=== PATIENT | female | born 1955 | race Caucasian/White ===

== ENCOUNTER → 2016-11-21 | Outpatient (CLI) | payer OTHER ==
[2016-11-21 15:40] LABS: Prothrombin Time 9.8 sec (9.0-12.0)
[2016-11-21 15:43] LABS: Basophils # (A) 0.1 k/uL (0-0.2); Basophils % (A) 2 %; CH 32.9; CHCM 32.8; Eosinophils # (A) 0.1 k/uL (0-0.7); Eosinophils % (A) 2 %; HCT 35.7 % (34.0-46.0); HDW 2.53; HGB 11.7 gm/dL (11.4-16.0); Luc # (Auto) 0.17; Luc % (Auto) 3; Lymphocytes # (A) 2.3 k/uL (1.0-4.8); Lymphocytes % (A) 44 %; MCH 33.1 pg (25.0-35.0); MCHC 32.8 g/dL (31.0-37.0); MCV 100.8 fL (80.0-100.0); Mean Platelet Volume 7.5; Monocytes # (A) 0.3 k/uL (0-1.0); Monocytes % (A) 5 %; Neutrophils # (A) 2.3 k/uL (1.3-7.7); Neutrophils % (A) 44 %; RBC 3.54 m/uL (3.80-5.40); RDW 12.9 % (11.5-15.5); WBC 5.1 k/uL (3.8-10.6); WBC (Perox) 5.38
[2016-11-21 15:50] LABS: ALT 21 U/L (9-52); AST 23 U/L (14-36); Alkaline Phosphatase 48 U/L (38-126); Anion Gap 9 mmol/L; Blood Urea Nitrogen 22 mg/dL (7-17); Calcium 9.7 mg/dL (8.4-10.2); Carbon Dioxide 28 mmol/L (22-30); Chloride 101 mmol/L (98-107); Glucose 115 mg/dL (74-99); Non-African American GFR(MDRD) >60 (>60 ml/min/1.73 sqM); Potassium 4.3 mmol/L (3.5-5.1); Sodium 138 mmol/L (137-145); Total Bilirubin 0.4 mg/dL (0.2-1.3); Total Protein 7.4 g/dL (6.3-8.2)
[2016-11-21 16:06] LABS: Appearance,Urine Clear (Clear); Bilirubin,Urine Negative (Negative); Glucose,Urine (UA) Negative (Negative); Ketones,Urine Negative (Negative); Leukocyte Esterase,Urine Negative (Negative); Nitrite,Urine Negative (Negative); PH, Urine 6.5 (5.0-8.0); Protein,Urine Negative (Negative); Specific Gravity,Urine 1.014 (1.001-1.035); UA Billing (MACRO vs. MICRO) CHEM; Urobilinogen,Urine <2.0 mg/dL (<2.0)
== END ==
LOC: LABWHC1 15:04
PROVIDERS: ATTEND Nurse Practitioner Primary Care
DX: Z01.818 Encounter for other preprocedural examination (principal); M54.5 Low back pain
CPT/HCPCS: 36415; 80053; 81003; 85025; 85610; 85730; 87070; 87086

== ENCOUNTER 2017-03-08 19:38 | Emergency (ER) | payer OTHER ==
[2017-03-08] MEDS ORDERED: ONDANSETRON 4 MG/2 ML VIAL IVP STA (20:16)
[2017-03-08] MEDS ORDERED: HYDROmorphone 1 MG/ML 1 ML SYRINGE IVP STA ×2 (20:16→21:59)
[2017-03-08] MEDS ORDERED: SODIUM CHLORIDE 0.9% 1,000 ML IV STA (20:16)
--- NOTE | 2017-03-08 20:21 | ED ---
Abdominal Pain HPI - General Chief Complaint: Abdominal Pain Stated Complaint: sore throat/vomiting/abdominal pain Time Seen by Provider: 03/08/17 19:58 Source: patient, RN notes reviewed Mode of arrival: ambulatory Limitations: no limitations - History of Present Illness Initial Comments: 61-year-old female presents to the emergency Department chief complaint of abdominal pain. Patient states that she developed this abdominal pain that radiates to her back about 2-3 days ago and today she started vomiting. Patient states pain is moderate. Patient states is constant and worse touch. Patient states she hasn't had any cough cold runny nose with this. Patient states that she hasn't had any fever chills. Patient states that she has had a hysterectomy in the past but doesn't know if she had any other surgeries for removal organs. Patient states she does suffer from chronic pain. Patient states she does not use alcohol. Patient states that she is not currently having any other symptoms. Patient denies any recent fever, chills, shortness of breath, chest pain, back pain, numbness or tingling, dysuria or hematuria, constipation or diarrhea, headaches or visual changes, or any other current symptoms. - Related Data Home Medications Medication Instructions Recorded Confirmed Cyclobenzaprine [Flexeril] 10 mg PO DAILY PRN 01/22/15 03/08/17 Zolpidem Tartrate [Ambien Cr] 12.5 mg PO HS PRN 01/22/15 03/08/17 lamoTRIgine [LaMICtal] 100 mg PO DAILY 01/22/15 03/08/17 Divalproex [Depakote] 250 mg PO DAILY 09/03/16 03/08/17 Estrogens, Conjugated [Premarin] 0.3 mg PO DAILY 09/03/16 03/08/17 FLUoxetine HCL [PROzac] 80 mg PO DAILY 09/03/16 03/08/17 Fenofibrate [Lofibra] 54 mg PO DAILY 09/03/16 03/08/17 Gemfibrozil [Lopid] 600 mg PO DAILY 09/03/16 03/08/17 HYDROcodone/APAP 7.5-325MG [[place] 1 tab PO DAILY PRN 09/03/16 03/08/17 7.5-325] Levothyroxine Sodium [Synthroid] 75 mcg PO DAILY 09/03/16 03/08/17 Lisinopril-Hctz 10-12.5 mg 1 tab PO DAILY 09/03/16 03/08/17 [Zestoretic 10-12.5] Morphine Sulfate ER [Ms Contin 15 mg PO Q12HR 09/03/16 03/08/17 15Mg] Morphine Sulfate ER [Ms Contin 30 mg PO Q12HR 09/03/16 03/08/17 30Mg] Loratadine 10 mg PO DAILY 03/08/17 03/08/17 Previous Rx's Medication Instructions Recorded Ciprofloxacin HCl [Cipro] 500 mg PO Q12HR #20 day 09/03/16 Allergies Allergy/AdvReac Type Severity Reaction Status Date / Time Iodinated Contrast Media - Allergy Rash/Hives/ Verified 03/08/17 20:22 Oral and Swelling Review of Systems ROS Statement: Those systems with pertinent positive or pertinent negative responses have been documented in the HPI. ROS Other: All systems not noted in ROS Statement are negative. Past Medical History Past Medical History: Asthma, Fibromyalgia, Hyperlipidemia, Osteoarthritis (OA) , Thyroid Disorder History of Any Multi-Drug Resistant Organisms: None Reported Past Surgical History: Cholecystectomy Past Psychological History: Anxiety, Depression Smoking Status: Current some day smoker Past Alcohol Use History: None Reported Past Drug Use History: None Reported General Exam - General Exam Comments Initial Comments: General: The patient is awake and alert, in no distress, and does not appear acutely ill. Eye: Pupils are equal, round and reactive to light, extra-ocular movements are intact; there is normal conjunctiva bilaterally. No signs of icterus. Ears, nose, mouth and throat: There are moist mucous membranes and no oral lesions. Neck: The neck is supple, there is no tenderness. Cardiovascular: There is a regular rate and rhythm. No murmur, rub or gallop is appreciated. Respiratory: Lungs are clear to auscultation, respirations are non-labored, breath sounds are equal. No wheezes, stridor, rales, or rhonchi. Gastrointestinal: Soft, non-distended, right upper quadrant tenderness of the abdomen without masses or organomegaly noted. There is no rebound or guarding present. No CVA tenderness. Bowel sounds are unremarkable. Back: There is no tenderness to palpation in the midline. There is no obvious deformity. No rashes noted. Musculoskeletal: Normal ROM, no tenderness, There is no pedal edema. There is no calf tenderness or swelling. Sensation intact. Pulses equal bilaterally 2+. Neurological: CN II-XII intact, There are no obvious motor or sensory deficits. Coordination appears grossly intact. Speech is normal. Skin: Skin is warm and dry and no rashes or lesions are noted. Psychiatric: Cooperative, appropriate mood & affect, normal judgment. Limitations: no limitations Course Vital Signs 03/08/17 03/08/17 19:44 21:17 Temperature 97.4 F L Pulse Rate 59 L 65 Respiratory 18 16 Rate Blood Pressure 164/72 152/70 O2 Sat by Pulse 98 97 Oximetry Medical Decision Making - Medical Decision Making 61-year-old female presents emergency department chief complaint of abdominal pain nausea vomiting. This time patient is reevaluated. At this time patient' s abdominal tenderness has resolved. Patient's CAT scan laboratory reviewed and negative. This and we discussed continued outpatient follow-up she is given GI follow-up. We discussed return parameters all questions. She stated that she understood and she is planned. She'll be discharged. - Lab Data Result diagrams: 03/08/17 20:02 03/08/17 20:02 Lab Results 03/08/17 03/08/17 03/08/17 Range/Units 20:02 20:02 20:02 WBC 7.6 (3.8-10.6) k/uL RBC 3.99 (3.80-5.40) m/uL Hgb 13.2 (11.4-16.0) gm/dL Hct 39.2 (34.0-46.0) % MCV 98.2 (80.0-100.0) fL MCH 33.2 (25.0-35.0) pg MCHC 33.8 (31.0-37.0) g/dL RDW 13.6 (11.5-15.5) % Plt Count 373 (150-450) k/uL Neutrophils % 53 % Lymphocytes % 39 % Monocytes % 4 % Eosinophils % 1 % Basophils % 1 % Neutrophils # 4.0 (1.3-7.7) k/uL Lymphocytes # 3.0 (1.0-4.8) k/uL Monocytes # 0.3 (0-1.0) k/uL Eosinophils # 0.1 (0-0.7) k/uL Basophils # 0.1 (0-0.2) k/uL Sodium 144 (137-145) mmol/L Potassium 4.1 (3.5-5.1) mmol/L Chloride 106 (98-107) mmol/L Carbon Dioxide 26 (22-30) mmol/L Anion Gap 12 mmol/L BUN 14 (7-17) mg/dL Creatinine 0.86 (0.52-1.04) mg/dL Est GFR (MDRD) Af Amer >60 (>60 ml/min/1.73 sqM) Est GFR (MDRD) Non-Af >60 (>60 ml/min/1.73 sqM) Glucose 89 (74-99) mg/dL Calcium 9.8 (8.4-10.2) mg/dL Total Bilirubin 0.6 (0.2-1.3) mg/dL AST 25 (14-36) U/L ALT 25 (9-52) U/L Alkaline Phosphatase 59 (38-126) U/L Total Protein 7.6 (6.3-8.2) g/dL Albumin 4.4 (3.5-5.0) g/dL Amylase 50 (30-110) U/L Lipase 82 (23-300) U/L Urine Color Yellow Urine Appearance Cloudy H (Clear) Urine pH 7.5 (5.0-8.0) Ur Specific [place] 1.009 (1.001-1.035) Urine Protein Negative (Negative) Urine Glucose (UA) Negative (Negative) Urine Ketones Negative (Negative) Urine Blood Small H (Negative) Urine Nitrite Negative (Negative) Urine Bilirubin Negative (Negative) Urine Urobilinogen <2.0 (<2.0) mg/dL Ur Leukocyte Esterase Negative (Negative) Urine RBC 8 H (0-5) /hpf Urine WBC 2 (0-5) /hpf Ur Squamous Epith Cells 4 (0-4) /hpf Urine Bacteria Moderate H (None) /hpf Urine Mucus Rare H (None) /hpf - EKG Data -: EKG Interpreted by Me 03/08/17 22:16 Sinus bradycardia, inferior 59, para 1:30, respirations 22, no ST elevation or depression, compared to EKG from 09/03/2016 Disposition Clinical Impression: Abdominal pain Disposition: TRANSFER TO PSYCH HOSP/UNIT Condition: Stable Instructions: Abdominal Pain (ED) Additional Instructions: Please use medication as discussed. Please follow up with family doctor if symptoms have not improved over the next two days. Please return to the emergency room if your symptoms increase or worsen or for any other concerns. Referrals: Federico Gregg MD [Primary Care Provider] - 1-2 days Time of Disposition: 22:18
[2017-03-08 20:50] LABS: Basophils # (A) 0.1 k/uL (0-0.2); Basophils % (A) 1 %; CH 33.6; CHCM 34.3; Eosinophils # (A) 0.1 k/uL (0-0.7); Eosinophils % (A) 1 %; HCT 39.2 % (34.0-46.0); HDW 2.46; HGB 13.2 gm/dL (11.4-16.0); Luc # (Auto) 0.18; Luc % (Auto) 2; Lymphocytes % (A) 39 %; MCH 33.2 pg (25.0-35.0); MCHC 33.8 g/dL (31.0-37.0); MCV 98.2 fL (80.0-100.0); Mean Platelet Volume 6.7; Monocytes # (A) 0.3 k/uL (0-1.0); Monocytes % (A) 4 %; Neutrophils % (A) 53 %; RBC 3.99 m/uL (3.80-5.40); RDW 13.6 % (11.5-15.5); WBC 7.6 k/uL (3.8-10.6); WBC (Perox) 7.93
[2017-03-08 20:57] LABS: Appearance,Urine Cloudy (Clear); Bacteria,Urine Moderate /hpf; Bilirubin,Urine Negative (Negative); Glucose,Urine (UA) Negative (Negative); Ketones,Urine Negative (Negative); Leukocyte Esterase,Urine Negative (Negative); Mucus,Urine Rare /hpf; Nitrite,Urine Negative (Negative); PH, Urine 7.5 (5.0-8.0); Particle Count 9196; Protein,Urine Negative (Negative); RBC,Urine 8 /hpf (0-5); Specific Gravity,Urine 1.009 (1.001-1.035); Squamous Epithelial Cell,Urine 4 /hpf (0-4); UA Billing (MACRO vs. MICRO) MICRO; Urobilinogen,Urine <2.0 mg/dL (<2.0); WBC,Urine 2 /hpf (0-5)
[2017-03-08 21:03] LABS: ALT 25 U/L (9-52); AST 25 U/L (14-36); Alkaline Phosphatase 59 U/L (38-126); Amylase 50 U/L (30-110); Anion Gap 12 mmol/L; Blood Urea Nitrogen 14 mg/dL (7-17); Calcium 9.8 mg/dL (8.4-10.2); Carbon Dioxide 26 mmol/L (22-30); Chloride 106 mmol/L (98-107); Glucose 89 mg/dL (74-99); Non-African American GFR(MDRD) >60 (>60 ml/min/1.73 sqM); Potassium 4.1 mmol/L (3.5-5.1); Sodium 144 mmol/L (137-145); Total Bilirubin 0.6 mg/dL (0.2-1.3); Total Protein 7.6 g/dL (6.3-8.2)
--- NOTE | 2017-03-08 21:11 | XR ---
History nausea and vomiting. Comparison 10/28/2010. TECHNIQUE: 2 views. FINDINGS: Bowel gas pattern is normal. There is no sign of intestinal obstruction or pneumoperitoneum. There is lower lumbar spine fusion surgery. There are clips from cholecystectomy. Fecal pattern is normal. Kenisha ng bases are clear. There are no pathologic calcifications over the kidneys. CONCLUSION: Nonacute abdomen. No change.
--- NOTE | 2017-03-08 21:55 | CT ---
EXAMINATION TYPE: CT abdomen pelvis wo con DATE OF EXAM: 03/08/2017 COMPARISON: 09/03/2016 HISTORY: Abdominal cramping and vomiting. CT DLP: 215.1 mGycm Automated exposure control for dose reduction was used. TECHNIQUE: Helical acquisition of images was performed from the lung bases through the pelvis. FINDINGS: Lung bases are clear. There is no pleural effusion. There are clips from cholecystectomy. Liver spleen pancreas appear normal. Bile ducts are not dilated . Abdominal aorta is atheromatous. There is no adrenal mass. Kidneys have normal size and contour. Th ere is no hydronephrosis. Ureters are not dilated. I see no intestinal wall thickening. There are no dilated loops. Bladder distends smoothly. There is no sign of a pelvic mass. Appendix is not seen. There is no sign of appendicitis. There is anterior f usion surgery in the lower lumbar spine. I see no bony destructive process. IMPRESSION: NO SIGN OF ACUTE ABDOMEN AND PELVIS. I DO NOT SEE A CAUSE FOR THE SYMPTOMS. NO ADVERSE CHANGE COMPARE D TO OLD EXAM. ATHEROSCLEROTIC VASCULAR DISEASE.
[2017-03-08 22:27] VITALS: BP 142/60; PULSE 66; RESP 16; TEMP 97.6
== END 2017-03-08 22:26 | disposition home or self-care (01) ==
LOC: EC 19:38
DX: R10.11 Right upper quadrant pain (principal); R11.10 Vomiting, unspecified; J02.9 Acute pharyngitis, unspecified; E78.5 Hyperlipidemia, unspecified; M19.90 Unspecified osteoarthritis, unspecified site; E07.9 Disorder of thyroid, unspecified; J45.909 Unspecified asthma, uncomplicated; F32.9 Major depressive disorder, single episode, unspecified; F41.9 Anxiety disorder, unspecified; F17.200 Nicotine dependence, unspecified, uncomplicated; Z79.891 Long term (current) use of opiate analgesic; Z79.899 Other long term (current) drug therapy; Z91.041 Radiographic dye allergy status; Z90.49 Acquired absence of other specified parts of digestive tract
CPT/HCPCS: 99284; 96374; 96375; 96376; 96361 ×2; 36415; 93005; 80053; 82150; 83690; 85025; 81001; 87040; 87086; 74020; 74176; J2405; J1170

== ENCOUNTER → 2017-04-10 | Outpatient (CLI) | payer OTHER ==
--- NOTE | 2017-04-10 16:59 | US ---
EXAMINATION TYPE: US kidneys/renal and bladder DATE OF EXAM: 04/10/2017 COMPARISON: CT CLINICAL HISTORY: R31.9 Hematuria. Pt states microscopic hematuria EXAM MEASUREMENTS: Right Kidney: 9.9 x 4.4 x 4.2 cm Left Kidney: 11.3 x 5.4 x 4.1 cm Right Kidney: Appeared wnl Left Kidney: Appeared wnl Bladder: wnl Bilateral Jets seen: Only left jet seen The kidneys appear morphologically normal. The bladder is unremarkable. The right ureteral jet was vi sualized in the left was not. IMPRESSION: NORMAL RENAL ULTRASOUND.
== END | disposition home or self-care (01) ==
LOC: RADUSWWP 16:09
PROVIDERS: ATTEND Internal Medicine
DX: R31.9 Hematuria, unspecified (principal)
CPT/HCPCS: 76770

== ENCOUNTER → 2017-06-06 | Outpatient (CLI) | payer OTHER ==
[2017-06-06 11:14] LABS: ALT 23 U/L (9-52); AST 16 U/L (14-36); Alkaline Phosphatase 57 U/L (38-126); Anion Gap 9 mmol/L; Blood Urea Nitrogen 16 mg/dL (7-17); Carbon Dioxide 23 mmol/L (22-30); Chloride 107 mmol/L (98-107); Glucose 77 mg/dL (74-99); Non-African American GFR(MDRD) >60 (>60 ml/min/1.73 sqM); Potassium 4.2 mmol/L (3.5-5.1); Sodium 139 mmol/L (137-145); Total Bilirubin 0.2 mg/dL (0.2-1.3); Total Protein 6.2 g/dL (6.3-8.2)
[2017-06-06 11:33] LABS: Basophils # (A) 0.1 k/uL (0-0.2); Basophils % (A) 1 %; CH 32.9; CHCM 33.1; Eosinophils # (A) 0.1 k/uL (0-0.7); Eosinophils % (A) 2 %; HCT 33.4 % (34.0-46.0); HDW 2.63; HGB 10.8 gm/dL (11.4-16.0); Luc # (Auto) 0.12; Luc % (Auto) 2; Lymphocytes # (A) 2.7 k/uL (1.0-4.8); Lymphocytes % (A) 45 %; MCH 32.2 pg (25.0-35.0); MCHC 32.2 g/dL (31.0-37.0); Mean Platelet Volume 7.1; Monocytes # (A) 0.4 k/uL (0-1.0); Monocytes % (A) 7 %; Neutrophils # (A) 2.6 k/uL (1.3-7.7); Neutrophils % (A) 44 %; RBC 3.34 m/uL (3.80-5.40); WBC 5.9 k/uL (3.8-10.6); WBC (Perox) 6.08
== END | disposition home or self-care (01) ==
LOC: LABWHC1 10:30
PROVIDERS: ATTEND Nurse Practitioner Primary Care
DX: I10 Essential (primary) hypertension (principal)
CPT/HCPCS: 36415; 80053; 85025

== ENCOUNTER → 2017-12-30 | Outpatient (CLI) | payer OTHER ==
--- NOTE | 2017-12-30 14:10 | MR ---
MRI CERVICAL SPINE: CLINICAL HISTORY: Cervicalgia per order. Headache with neck pain for a long-time causing pain or weak ness into both arms per patient. TECHNIQUE: Multiplanar, multisequence imaging of the cervical spine is performed without IV contrast. COMPARISON: MRI cervical spine October 21, 2014. FINDINGS: Sagittal images of the cervical spine show the craniocervical junction to remain within nor mal limits. The cervical and upper thoracic spinal cord is stable and normal in course, caliber, and signal. There is generalized AP diameter narrowing redemonstrated unchanged from prior Vertebral al ignment is stable and straightened. The vertebral body heights are normal. There is stable mild mult ilevel disc space narrowing. No large posterior disc herniations are seen on sagittal images. The bon e marrow signal intensity is overall slightly heterogeneous with mild to moderate multilevel spurring mid cervical levels redemonstrated. Axial images show the C2-C3 level to remain within normal limits. Axial images at C3-C4 level show broad-based posterior disc protrusion mildly effacing anterior theca l sac, bilateral neural foramina are patent. No significant change from prior. Axial images at C4-C5 level show broad-based posterior disc protrusion effacing anterior thecal sac a nd causing mild bilateral neural foraminal narrowing. No significant change from prior. Axial images at C5-C6 level show left paracentral broad-based disc protrusion effacing anterolateral thecal sac and causing mild to moderate left-sided neural foraminal narrowing. Right-sided neural for amen is patent. No significant change from prior study is seen. Axial images at C6-C7 level show new right foraminal spur disc complex effacing anterolateral thecal sac and causing mild to moderate left-sided neural foraminal narrowing on axial image 17 and sagittal image 4, right-sided neural foramen is patent. No significant change from prior. Axial images at C7-T1 level are felt to remain within normal limits. Thyroid gland is not well-visualized similar to prior. IMPRESSION: Straightening of cervical spine with multilevel degenerative changes redemonstrated as de tailed above. No significant change or progression from prior MRI noted.
== END | disposition home or self-care (01) ==
LOC: RADMRIMAIN 12:33
PROVIDERS: ATTEND Psychiatry & Neurology Neurology
DX: M48.02 Spinal stenosis, cervical region (principal); M99.71 Connective tissue and disc stenosis of intervertebral foramina of cervical region; M50.21 Other cervical disc displacement, high cervical region; M47.812 Spondylosis without myelopathy or radiculopathy, cervical region
CPT/HCPCS: 72141

== ENCOUNTER → 2018-02-07 | Outpatient (CLI) | payer OTHER ==
--- NOTE | 2018-02-11 14:56 | MM ---
Reason for exam: screening (asymptomatic). Last mammogram was performed 2 years and 5 months ago. History: Patient is postmenopausal. Taking estrogen for 24 years beginning at age 34. Physical Findings: A clinical breast exam by your physician is recommended on an annual basis and results should be correlated with mammographic findings. MG Screening Mammo w CAD Bilateral CC and MLO view(s) were taken. Prior study comparison: September 07, 2015, right breast MG 3d work up w/cad RT. August 25, 2015, bilateral MG screening mammo w CAD. The breast tissue is heterogeneously dense. This may lower the sensitivity of mammography. Focal asymmetry upper inner right breast 6.4cm from nipple. ASSESSMENT: Incomplete: need additional imaging evaluation, BI-RAD 0 RECOMMENDATION: Special view mammogram of the right breast. If lesion persists on supplemental views, image directed ultrasound is recommended. [facility] will attempt to contact patient to return for supplemental views and ultrasound if indicated.
== END | disposition home or self-care (01) ==
LOC: RADMAMWWP 13:21
PROVIDERS: ATTEND Internal Medicine
DX: Z12.31 Encounter for screening mammogram for malignant neoplasm of breast (principal)
CPT/HCPCS: 77067

== ENCOUNTER → 2018-02-27 | Outpatient (CLI) | payer OTHER ==
--- NOTE | 2018-02-27 14:20 | MM ---
Reason for exam: additional evaluation requested from abnormal screening. Last mammogram was performed 1 month ago. History: Patient is postmenopausal. Taking estrogen for 24 years beginning at age 34. Physical Findings: Nurse did not find any significant physical abnormalities on exam. MG Work Up Mamm w CAD RT Spot compression CC, spot compression MLO, and LM view(s) were taken of the right breast. Prior study comparison: February 07, 2018, bilateral MG screening mammo w CAD. September 07, 2015, right breast MG 3d work up w/cad RT. No distinct lesion persists on additional views provided. These results were verbally communicated with the patient and result sheet given to the patient on 02/27/18. ASSESSMENT: Negative, BI-RAD 1 RECOMMENDATION: Return to routine screening mammogram schedule for both breasts.
== END | disposition home or self-care (01) ==
LOC: RADMAMWWP 12:50
PROVIDERS: ATTEND Internal Medicine
DX: R92.8 Other abnormal and inconclusive findings on diagnostic imaging of breast (principal)
CPT/HCPCS: 77065

== ENCOUNTER → 2018-03-05 | Outpatient (CLI) | payer OTHER ==
[2018-03-05 14:46] LABS: Basophils # (A) 0.1 k/uL (0-0.2); Basophils % (A) 1 %; Eosinophils # (A) 0.1 k/uL (0-0.7); Eosinophils % (A) 2 %; HCT 40.3 % (34.0-46.0); HGB 13.6 gm/dL (11.4-16.0); Lymphocytes # (A) 2.7 k/uL (1.0-4.8); Lymphocytes % (A) 44 %; MCH 31.9 pg (25.0-35.0); MCHC 33.8 g/dL (31.0-37.0); MCV 94.3 fL (80.0-100.0); Mean Platelet Volume 6.5; Monocytes # (A) 0.3 k/uL (0-1.0); Monocytes % (A) 5 %; Neutrophils # (A) 2.9 k/uL (1.3-7.7); Neutrophils % (A) 47 %; Platelet Count 407 k/uL (150-450); RBC 4.27 m/uL (3.80-5.40); RDW 13.4 % (11.5-15.5); WBC 6.2 k/uL (3.8-10.6)
[2018-03-05 15:17] LABS: T4, Free (Free Thyroxine) 1.39 ng/dL (0.78-2.19)
== END | disposition home or self-care (01) ==
LOC: LABWHC1 13:52
PROVIDERS: ATTEND Nurse Practitioner Primary Care
DX: E03.9 Hypothyroidism, unspecified (principal); E78.5 Hyperlipidemia, unspecified
CPT/HCPCS: 36415; 80061; 84439; 84443; 84481; 85025

== ENCOUNTER → 2018-07-15 | Outpatient (CLI) | payer OTHER ==
[2018-07-15 16:22] LABS: ALT 16 U/L (8-44); AST 26 U/L (13-35); Albumin/Globulin Ratio 2.09 (1.20-2.10); Alkaline Phosphatase 92 U/L (41-126); Bilirubin, Conjugated <0.20 mg/dL (0.20-0.40); Globulin 2.2 g/dL (2.1-3.7); Total Bilirubin 0.2 mg/dL (0.3-1.2); Total Protein 6.8 g/dL (6.2-8.2)
== END | disposition home or self-care (01) ==
LOC: LABWHC1 08:25
DX: E03.9 Hypothyroidism, unspecified (principal); Z51.81 Encounter for therapeutic drug level monitoring
CPT/HCPCS: 36415; 80076; 84439; 84443; 84481

== ENCOUNTER → 2018-08-26 | Outpatient (CLI) | payer OTHER ==
[2018-08-26 11:37] LABS: Albumin 4.6 g/dL (3.80-4.90); Albumin/Globulin Ratio 2.09 (1.20-2.10); Anion Gap 7.4 mmol/L (4.00-12.00); Calcium 9.6 mg/dL (8.7-10.3); Carbon Dioxide 25.6 mmol/L (21.6-31.8); Globulin 2.2 g/dL (2.1-3.7); Potassium 4.5 mmol/L (3.5-5.5); Total Bilirubin 0.3 mg/dL (0.3-1.2); Total Protein 6.8 g/dL (6.2-8.2)
== END ==
LOC: LABWHC1 06:33
DX: E78.5 Hyperlipidemia, unspecified (principal); I10 Essential (primary) hypertension
CPT/HCPCS: 36415; 80053; 80061; 84443

== ENCOUNTER → 2019-03-25 | Outpatient (CLI) | payer OTHER ==
--- NOTE | 2019-03-27 13:30 | MM ---
Reason for exam: screening (asymptomatic). Last mammogram was performed 1 year and 1 month ago. History: Patient is postmenopausal. Taking estrogen for 24 years beginning at age 34. Physical Findings: A clinical breast exam by your physician is recommended on an annual basis and results should be correlated with mammographic findings. MG Screening Mammo w CAD Bilateral CC and MLO view(s) were taken. Prior study comparison: February 27, 2018, right breast MG work up mamm w CAD RT. February 07, 2018, bilateral MG screening mammo w CAD. There are scattered fibroglandular densities. No significant changes when compared with prior studies. ASSESSMENT: Benign, BI-RAD 2 RECOMMENDATION: Routine screening mammogram of both breasts in 1 year.
== END | disposition home or self-care (01) ==
LOC: RADMAMWWP 14:42
PROVIDERS: ATTEND Family Medicine
DX: Z12.31 Encounter for screening mammogram for malignant neoplasm of breast (principal)
CPT/HCPCS: 77067

== ENCOUNTER 2019-06-10 10:59 | Day surgery (SDC) | payer OTHER ==
[2019-06-08 15:37] VITALS: BMI 29.5
[~2019-06-10 10:59] MED LIST: ACETAMINOPHEN TAB 500 MG TAB PO ONE; DEXAMETHASONE SOD PHOSPHATE 10 MG/ML 1 ML VIAL IV ONE; GABAPENTIN 300 MG CAP PO ONE; HYDROmorphone 0.5 MG/0.5 ML SYRINGE IVP PRN; KETOROLAC 30 MG/ML 1 ML VIAL IVP SCH; LACTATED RINGERS 1,000 ML IV SCH; LIDOCAINE 1% 20 ML VIAL (10MG/ML) FOR IV START INTRADERMA PRN; MIDAZOLAM 2 MG/2 ML VIAL IV PRN; ONDANSETRON 4 MG/2 ML VIAL IVP ONE; Pre Op ABX Message 1 EACH MISC MISCELLANE ONE
[2019-06-10] MEDS ORDERED: MIDAZOLAM 2 MG/2 ML VIAL ONE (13:15)
[2019-06-10] MEDS ORDERED: GLYCOPYRROLATE 0.2 MG/ML 2 ML VIAL ONE ×2 (13:15)
[2019-06-10] MEDS ORDERED: LIDOCAINE 2%-EPI 1:100,000 20 ML VIAL ONE (13:15)
[2019-06-10] MEDS ORDERED: ePHEDrine SULFATE/0.9% NACL/PF 50 MG/5 ML SYRINGE IV ONE (13:15)
[2019-06-10] MEDS ORDERED: NEOSTIGMINE 1 MG/ML 10 ML VIAL ONE (13:15)
[2019-06-10] MEDS ORDERED: PROPOFOL 10 MG/ML 20 ML VIAL IV ONE (13:15)
[2019-06-10] MEDS ORDERED: LIDOCAINE 1% INJ 10MG/ML (20 ML MDV) ONE (13:15)
[2019-06-10] MEDS ORDERED: PHENYLEPHRINE-0.9% NACL SYG 1 MG/10 ML SYRINGE ONE (13:15)
[2019-06-10] MEDS ORDERED: ROPIVACAINE 5 MG/ML 30 ML VIAL ONE (13:15)
[2019-06-10] MEDS ORDERED: fentaNYL (PF) 50 MCG/ML 2 ML AMP ONE (13:15)
[2019-06-10] MEDS ORDERED: ROCURONIUM BROMIDE 10 MG/ML 10 ML VIAL IV ONE (13:15)
[2019-06-10] MEDS ORDERED: SODIUM CHLORIDE 0.9% 100 ML with ceFAZolin 2,000 MG IV ONE ×2 (13:19)
[2019-06-10] MEDS ORDERED: LACTATED RINGERS 1,000 ML IV ONE ×2 (14:08)
[2019-06-10 14:54] VITALS: TEMP 96.8
[2019-06-10 15:02] VITALS: RESP 16
[2019-06-10] MEDS ORDERED: HYDROcodone/APAP 7.5-325MG 1 EACH TAB PO ONE (15:36)
[2019-06-10 15:48] VITALS: BP 129/71; PULSE 70
--- NOTE | 2019-06-10 16:18 | P.ANPRN ---
Procedure Note - Anesthesia - Nerve Block Performed Left Interscalene Single Time Out Performed: Yes Date of Procedure: 06/10/19 Procedure Start Time: 12:17 Location of Patient Procedure: PreOp Indication: Acute Post-Operative Pain, Dx/Pain Location, Requested by Surgeon Sedation Type: Sedate with meaningful contact maintained Preparation: Sterile Prep Position: Supine Catheter: None Needle Types: [place]unk Needle Gauge: 21 Ultrasound used to visualize needle placement: Yes Ultrasound used to observe medication spread: Yes Injectate: 0.5% Ropivacaine (see comment for volume) (20ml) Blood Aspirated: No Pain Paresthesia on Injection Noted: No Resistance on Injection: Normal Image Stored and Saved: Yes Events: Uneventful and Well Tolerated
--- NOTE | 2019-06-10 16:26 | OP ---
OPERATIVE REPORT DATE OF PROCEDURE: 06/10/2019. SURGEON: Perry Rodriguez MD CLIENT INSIGHTS CONSULTANT: Clarence Toledo PA-C PREOPERATIVE DIAGNOSES: 1. Left shoulder full-thickness rotator cuff tear. 2. Left shoulder superior labral tear. 3. Left shoulder subacromial impingement. POSTOPERATIVE DIAGNOSES: 1. Left shoulder full-thickness tear of the supraspinatus, 1 x 1 cm tear. 2. Left shoulder type 2 degenerative superior labral tear. 3. Left shoulder fraying of the intra-articular portion of the long head of the biceps tendon. 4. Left shoulder type 2 anterolateral acromial spur. PROCEDURES PERFORMED: 1. Left shoulder arthroscopic rotator cuff repair 1 x 1 cm tear of the supraspinatus. 2. Left shoulder arthroscopic acromioplasty. 3. Left shoulder arthroscopic biceps tenotomy. 4. Left shoulder arthroscopic anterior, superior and posterior labral debridement. ANESTHESIA: General endotracheal. ESTIMATED BLOOD LOSS: Minimal. TOURNIQUET: None. DRAINS: None. COMPLICATIONS: None apparent. DISPOSITION: Post-Anesthesia Care Unit. EXAMINATION UNDER ANESTHESIA OF THE LEFT SHOULDER: Elevation to 160 degrees, external rotation at the side 45 degrees, external rotation at 90 degrees 90 degrees, internal rotation at 90 degrees, 60 degrees, sulcus less than 1 cm, anterior translation glenoid face, posterior translation glenoid face. ARTHROSCOPIC FINDINGS OF THE LEFT SHOULDER: 1. Superior labrum, type 2 degenerative superior labral tear, tearing both anterior and posterior of the biceps anchor. The biceps anchor was not intact. There was also significant fraying of the intra-articular portion of the long head of the biceps tendon. 2. Anteroinferior labrum with normal glenoid labral attachment. 3. Tearing of the posterior labrum from the 10 o'clock position to the 12 o'clock position on the glenoid face. 4. Humeral head cartilage was normal. 5. Rotator cuff full-thickness tear of the anterior supraspinatus measuring 1 x 1 cm with minimal retraction. 6. Glenoid face cartilage with mild grade 1 change. 7. Subacromial space significant fraying of the undersurface of the coracoacromial ligament with a type 2 anterolateral acromial spur. INDICATIONS: Radha is a very pleasant 64-year-old female with left shoulder pain. She sustained an injury to the shoulder. She has noted weakness as well as significant pain in the shoulder. She has been through a fairly significant course of nonoperative treatment up to this point. Physical examination and MRI revealed tearing of the superior labrum as well as rotator cuff tear. At this point, she feels that she has failed nonoperative treatment and would like to proceed with operative intervention. A long discussion was held with the patient in regard to treatment options. The risks of the procedure were all discussed with her in detail. These risks included but were not limited to risk of infection, nerve damage, bleeding, pain, and a small risk of deep vein thrombosis which could lead to fatal pulmonary embolism. Further risks include lack of healing of the rotator cuff and the possibility of biceps contour change with a biceps tenotomy. The patient understands the operation as well as the fact that there is no guarantee of improvement of her symptoms. An appropriate informed consent was obtained. DESCRIPTION OF THE PROCEDURE: Patient was identified in the preoperative holding area. Surgical site was marked by both the patient and myself. She was given 2 grams of Ancef IV for prophylactic purposes. She was then transported to the operative suite. She was placed supine on the operating room table. The patient was then intubated endotracheally and received general anesthesia throughout the operative procedure. Examination under anesthesia was then performed, with the findings as noted above. The patient was then placed into the beach chair position and well padded in preparation for surgery. Great care was taken to ensure that the cervical spine was in neutral alignment, well padded, and maintained that way throughout the operative procedure. Great care was taken to ensure that her legs were appropriately padded as well. The patient's left upper extremity was then prepped and draped in the usual sterile fashion. A standard surgical pause was undertaken to ensure that appropriate preoperative antibiotics had been given and that we were operating on the correct site. All staff in the room were in agreement and we proceeded. The acromion as well as the AC joint and coracoid were marked with a surgical pen. The skin of the anticipated port sites were also marked with a surgical pen. The skin of the anticipated portal sites were then injected with 0.25% Marcaine with epinephrine. I then proceeded to make a posterior portal. A 30-degree arthroscope was introduced into the glenohumeral joint through this portal. The arthroscopic pump pressure was set at 40 mmHg and maintained at that level throughout the entire case. Next, utilizing an 18-gauge spinal needle to topically localize the placement, the anterosuperior portal was made. This was made just underneath the biceps tendon high on the rotator interval. A small 5.75 mm cannula was then placed and the outflow was then done through this cannula. Diagnostic arthroscopy of the shoulder was then performed. The findings were noted as above. Great care was taken to probe the superior labral complex as well as the biceps anchor. The biceps anchor was not firmly attached. Significant tearing of the superior labrum. This extended both anterior and posterior to the biceps anchor. The intra-articular portion of the long head of the biceps tendon did have partial tearing as well. At this point I proceeded with a biceps tenotomy. The biceps was tenotomized near its attachment on to the supraglenoid tubercle. This was done utilizing the ArthroCare wand. I then proceeded to debride the torn loose tissue of the superior labrum. This was debrided anteriorly, superiorly and posteriorly back to stable tissue. I then inspected the rotator cuff from intra-articular. She did have a full-thickness tear of the anterior aspect of the supraspinatus. This tear was debrided very gently from intra-articular utilizing the synovial shaver. At this point in time no further work was deemed necessary from intra-articular. The arthroscope was removed from the glenohumeral joint, and utilizing the same posterior skin incision, it was placed in the subacromial space. Next, utilizing an 18-gauge spinal needle to topically localize the placement, the lateral port was made under direct visualization. A subacromial bursectomy was then performed utilizing the synovial shaver as well as the ArthroCare wand. There was significant fraying of the undersurface of the coracoacromial ligament. This was then taken down utilizing the ArthroCare wand. It exposed an underlying type 2 anterolateral acromial spur. I then proceeded with an acromioplasty. Utilizing the synovial shaver in a julius-type fashion, the acromioplasty was completed. When the acromioplasty was complete, the arthroscope was placed into the lateral portal and the shaver placed posteriorly to ensure that it was adequate and coplanar with the posterior aspect of the acromion. I then proceeded to repair the rotator cuff tear, a full-thickness tear of the anterior leading edge of the supraspinatus. This measured approximately 1 x 1 cm. The footprint of the greater tuberosity was then debrided of all devitalized tissue utilizing the synovial shaver as well as the ArthroCare wand. I then performed a light decortication of the greater tuberosity utilizing the synovial shaver in a julius-type fashion. This provided a nice bleeding surface with the repair. I then placed small microfracture holes along the articular margin to again enhance healing of the repair. I then utilized the ArtSetters suture-passer and placed an Arthrex FiberTape suture in an inverted horizontal mattress fashion. These sutures were shuttled out through the anterolateral portal. I then proceeded with placement of the anchor. An Arthrex 4.75 mm Bio-SwiveLock anchor was chosen. The awl was placed at the most anterolateral aspect of the footprint. This was just posterior to the bicipital groove. The sutures were then shuttled through the anchor and anchor placed after tensioning the sutures appropriately. The anchor had an excellent purchase in bone. This brought the rotator cuff tear down very nicely to the most lateral aspect of the footprint. The FiberTape sutures were then cut flush with the anchor. The repair was then probed. It had been repaired down very nicely to the most lateral aspect of the footprint. At this point in time no further work was deemed necessary. The shoulder was thoroughly irrigated, then drained with an outflow cannula. The arthroscopic equipment was removed from the shoulder. The rest of the portals were then closed with 3-0 nylon interrupted suture. Sterile compressive dressing was then applied. The patient's left upper extremity was placed into a rotator cuff type immobilizer. All sponge and needle counts were deemed correct prior to closure. The patient tolerated the procedure without apparent complication. She was transferred to the recovery room in stable condition. MMODL / IJN: [id number] /
== END 2019-06-10 16:21 | disposition home or self-care (01) ==
LOC: OR 10:59
PROVIDERS: ATTEND Orthopaedic Surgery Sports Medicine
DX: M75.122 Complete rotator cuff tear or rupture of left shoulder, not specified as traumatic (principal); S43.432A Superior glenoid labrum lesion of left shoulder, initial encounter; M75.42 Impingement syndrome of left shoulder; M77.9 Enthesopathy, unspecified; I10 Essential (primary) hypertension; J43.9 Emphysema, unspecified; G30.9 Alzheimer's disease, unspecified; F41.9 Anxiety disorder, unspecified; F02.80 Dementia in other diseases classified elsewhere, unspecified severity, without behavioral disturbance, psychotic disturbance, mood disturbance, and anxiety; F32.9 Major depressive disorder, single episode, unspecified; E03.9 Hypothyroidism, unspecified; E78.5 Hyperlipidemia, unspecified; M19.90 Unspecified osteoarthritis, unspecified site; G43.909 Migraine, unspecified, not intractable, without status migrainosus; M79.7 Fibromyalgia; F17.210 Nicotine dependence, cigarettes, uncomplicated; Z97.3 Presence of spectacles and contact lenses; Z91.041 Radiographic dye allergy status; Z90.710 Acquired absence of both cervix and uterus; Z79.891 Long term (current) use of opiate analgesic; Z79.890 Hormone replacement therapy; Z79.899 Other long term (current) drug therapy; Z87.19 Personal history of other diseases of the digestive system; Z98.1 Arthrodesis status; Z90.49 Acquired absence of other specified parts of digestive tract; Z83.3 Family history of diabetes mellitus; Z82.49 Family history of ischemic heart disease and other diseases of the circulatory system; Z80.9 Family history of malignant neoplasm, unspecified; Z68.29 Body mass index [BMI] 29.0-29.9, adult; X58.XXXA Exposure to other specified factors, initial encounter
CPT/HCPCS: 64415; 29827; 29826; C1713 ×2; J2250; J1100; J2710; J2405; J0690; J2001; J3010; J2795; J2370; J2704

== ENCOUNTER → 2019-08-28 | Outpatient (CLI) | payer OTHER ==
[2019-08-28 12:18] LABS: African American GFR (CKD) 79.4 (60.0-200.0); Albumin 4.4 g/dL (3.80-4.90); Albumin/Globulin Ratio 2.32 (1.60-3.17); Anion Gap 10.3 mmol/L (4.00-12.00); BUN/Creat Ratio 18.89 Ratio (12.00-20.00); Calcium 9.5 mg/dL (8.7-10.3); Carbon Dioxide 24.7 mmol/L (21.6-31.8); Chol/HDL Ratio 5.41; Globulin 1.9 g/dL (1.6-3.3); LDL Cholesterol,Calculated 147.6 mg/dL (0.0-131.0); Non-African American GFR(CKD) 68.5 (60.0-200.0); Potassium 3.7 mmol/L (3.5-5.5); Total Bilirubin 0.2 mg/dL (0.2-1.2); Total Protein 6.3 g/dL (6.2-8.2); VLDL Calculation 55.4 mg/dL (5.00-40.00)
== END | disposition home or self-care (01) ==
LOC: LABWHC1 07:09
DX: E03.9 Hypothyroidism, unspecified (principal); E78.5 Hyperlipidemia, unspecified
CPT/HCPCS: 36415; 80053; 80061; 84439; 84443

== ENCOUNTER → 2020-10-26 | Outpatient (CLI) | payer OTHER ==
--- NOTE | 2020-10-28 11:22 | MM ---
Reason for exam: screening (asymptomatic). Last mammogram was performed 1 year and 7 months ago. History: Patient is postmenopausal. Taking estrogen for 24 years beginning at age 34. Physical Findings: A clinical breast exam by your physician is recommended on an annual basis and results should be correlated with mammographic findings. MG Screening Mammo w CAD Bilateral CC and MLO view(s) were taken. Prior study comparison: March 25, 2019, bilateral MG screening mammo w CAD. February 27, 2018, right breast MG work up mamm w CAD RT. There are scattered fibroglandular densities. No significant changes when compared with prior studies. ASSESSMENT: Benign, BI-RAD 2 RECOMMENDATION: Routine screening mammogram of both breasts in 1 year.
== END | disposition home or self-care (01) ==
LOC: RADMAMWWP 13:35
PROVIDERS: ATTEND Family Medicine
DX: Z12.31 Encounter for screening mammogram for malignant neoplasm of breast (principal)
CPT/HCPCS: 77067

== ENCOUNTER 2020-12-21 12:06 | Day surgery (SDC) | payer OTHER ==
[2020-12-19 15:44] VITALS: BMI 29.7
[~2020-12-21 12:06] MED LIST changes: -ACETAMINOPHEN TAB 500 MG TAB PO ONE; -DEXAMETHASONE SOD PHOSPHATE 10 MG/ML 1 ML VIAL IV ONE; -GABAPENTIN 300 MG CAP PO ONE; -HYDROmorphone 0.5 MG/0.5 ML SYRINGE IVP PRN; -KETOROLAC 30 MG/ML 1 ML VIAL IVP SCH; +LIDOCAINE 1% (10MG/ML) FOR IV START INTRADERMA PRN; -LIDOCAINE 1% 20 ML VIAL (10MG/ML) FOR IV START INTRADERMA PRN; -MIDAZOLAM 2 MG/2 ML VIAL IV PRN; -ONDANSETRON 4 MG/2 ML VIAL IVP ONE; -Pre Op ABX Message 1 EACH MISC MISCELLANE ONE
[2020-12-21 12:29] VITALS: TEMP 97.4
[2020-12-21] MEDS ORDERED: MIDAZOLAM 2 MG/2 ML VIAL IV ONE (12:38)
[2020-12-21] MEDS ORDERED: PROPOFOL 10 MG/ML 20 ML VIAL IV ONE (13:18)
--- NOTE | 2020-12-21 13:59 | P.GSHP ---
History of Present Illness H&P Date: 12/21/20 Chief Complaint: GI bleed, hemorrhoids This is a 65-year-old female for from Dr. Isidro Villa. Patient with rectal bleeding and hemorrhoids. She presents today for colonoscopy Past Medical History Past Medical History: Asthma, Hyperlipidemia, Osteoarthritis (OA), Thyroid Disorder Additional Past Medical History / Comment(s): takes depakote for migraine headaches, hemmorhoids, nerve pain History of Any Multi-Drug Resistant Organisms: None Reported Past Surgical History: Back Surgery, Cholecystectomy, Hysterectomy, Orthopedic Surgery Additional Past Surgical History / Comment(s): back surg. x2, lumbar fusion, left shoulder rotator cuff Past Anesthesia/Blood Transfusion Reactions: Postoperative Nausea & Vomiting (PONV) Smoking Status: Current some day smoker - Past Family History Mother Family Medical History: Cancer Additional Family Medical History / Comment(s): brain Medications and Allergies Home Medications Medication Instructions Recorded Confirmed Type Zolpidem Tartrate [Ambien Cr] 12.5 mg PO HS PRN 01/22/15 12/19/20 History Divalproex [Depakote] 125 mg PO QAM 09/03/16 12/19/20 History Estrogens, Conjugated [Premarin] 0.3 mg PO DAILY 09/03/16 12/19/20 History HYDROcodone/APAP 7.5-325MG [[place] 1 tab PO DAILY PRN 09/03/16 12/19/20 History 7.5-325] Morphine Sulfate ER [Ms Contin 15 mg PO DAILY 09/03/16 12/19/20 History 15Mg] Morphine Sulfate ER [Ms Contin 30 mg PO DAILY 09/03/16 12/19/20 History 30Mg] Albuterol Inhaler (Mhu) [Ventolin 1 - 2 puff INHALATION RT-Q6H PRN 06/08/19 12/19/20 History Hfa Inhaler] Escitalopram [Lexapro] 20 mg PO DAILY 06/08/19 12/19/20 History Atorvastatin [Lipitor] 20 mg PO DAILY 12/19/20 12/19/20 History Gabapentin 300 mg PO TID 12/19/20 12/19/20 History Levothyroxine Sodium [Synthroid] 100 mcg PO DAILY 12/19/20 12/19/20 History Allergies Allergy/AdvReac Type Severity Reaction Status Date / Time Iodinated Contrast Media Allergy Rash/Hives/ Verified 12/21/20 12:20 [Iodinated Contrast Media - Swelling Oral and] Surgical - Exam Vital Signs Temp Pulse Resp BP Pulse Ox 97.4 F L 72 16 156/72 95 12/21/20 12:25 12/21/20 12:25 12/21/20 12:25 12/21/20 12:25 12/21/20 12:25 - General well developed, well nourished, no distress - Eyes PERRL - ENT normal pinna - Neck no masses - Respiratory normal expansion - Cardiovascular Rhythm: regular - Abdomen Abdomen: soft, non tender Assessment and Plan Assessment: GI bleed, hemorrhoids. We'll perform colonoscopy.
--- NOTE | 2020-12-21 14:00 | P.OP ---
Date of Procedure: 12/21/20 Preoperative Diagnosis: Hemorrhoids Postoperative Diagnosis: Diverticulosis Internal/external hemorrhoids No evidence of active GI bleed Procedure(s) Performed: Colonoscopy Anesthesia: MAC Surgeon: Wilmar Rodriguez Pathology: none sent Condition: stable Disposition: PACU Description of Procedure: Patient's placed on the endoscopy table in the lateral position. He received IV sedation. Digital rectal exam is performed which revealed internal and external hemorrhoids. Flexible colonoscope was then placed patient anus passed rotator entire colon. The ileocecal valve was visualized. The cecum, ascending transverse colon appeared normal. In the descending and sigmoid colon there was moderate diverticular changes. Scope was brought back the rectum was normal. There is known to any colonic bleeding. Scope was withdrawn through the anus internal and external was noted. Scope was withdrawn for patient. No active bleeding was seen. Resume that her rectal bleeding is due to hemorrhoids.
[2020-12-21 14:17] VITALS: BP 132/71; PULSE 67; RESP 18
== END 2020-12-21 14:31 | disposition home or self-care (01) ==
LOC: ORWHC2ENDO 12:06
PROVIDERS: ATTEND Surgery
DX: K64.8 Other hemorrhoids (principal); K64.4 Residual hemorrhoidal skin tags; K92.2 Gastrointestinal hemorrhage, unspecified; J45.909 Unspecified asthma, uncomplicated; E78.5 Hyperlipidemia, unspecified; M19.90 Unspecified osteoarthritis, unspecified site; E07.9 Disorder of thyroid, unspecified; G43.909 Migraine, unspecified, not intractable, without status migrainosus; M79.2 Neuralgia and neuritis, unspecified; Z90.49 Acquired absence of other specified parts of digestive tract; Z90.710 Acquired absence of both cervix and uterus; Z98.1 Arthrodesis status; Z98.890 Other specified postprocedural states; F17.200 Nicotine dependence, unspecified, uncomplicated; Z80.8 Family history of malignant neoplasm of other organs or systems; Z79.890 Hormone replacement therapy; Z79.899 Other long term (current) drug therapy; Z79.891 Long term (current) use of opiate analgesic; Z91.041 Radiographic dye allergy status
CPT/HCPCS: 45378; J2250; J2704

== ENCOUNTER 2021-01-13 08:45 | Day surgery (SDC) | payer OTHER ==
[2021-01-10 09:42] VITALS: BMI 30.2
[~2021-01-13 08:45] MED LIST changes: +ACETAMINOPHEN TAB 500 MG TAB PO PRN; +DEXAMETHASONE SOD PHOSPHATE 4 MG/ML 1 ML VIAL IV ONE; +HEPARIN SODIUM,PORCINE/PF 5,000 UNIT/0.5 ML SYRINGE SQ PRN; +HYDROmorphone 0.5 MG/0.5 ML SYRINGE IVP PRN; -LIDOCAINE 1% (10MG/ML) FOR IV START INTRADERMA PRN; +MIDAZOLAM 2 MG/2 ML VIAL IV PRN; +ONDANSETRON 4 MG/2 ML VIAL IVP ONE; +Pre Op ABX Message 1 EACH MISC MISCELLANE ONE; +SCOPOLAMINE 1.5MG/72HR PATCH TRANSDERM ONE
[2021-01-13] MEDS ORDERED: LIDOCAINE 1% (10MG/ML) FOR IV START INTRADERMA ONE (09:21)
[2021-01-13] MEDS ORDERED: fentaNYL (PF) 50 MCG/ML 2 ML AMP IVP ONE (09:39)
[2021-01-13] MEDS ORDERED: MIDAZOLAM 2 MG/2 ML VIAL ONE (10:25)
[2021-01-13] MEDS ORDERED: LIDOCAINE 1% INJ 10MG/ML (20 ML MDV) ONE (10:25)
[2021-01-13] MEDS ORDERED: SUCCINYLCHOLINE CHLORIDE 100 MG/5 ML SYR IV ONE (10:25)
[2021-01-13] MEDS ORDERED: ROCURONIUM 10 MG/ML (5 ML VIAL) IV ONE (10:25)
[2021-01-13] MEDS ORDERED: NEOSTIGMINE 1 MG/ML 10 ML VIAL ONE (10:25)
[2021-01-13] MEDS ORDERED: PROPOFOL 10 MG/ML 20 ML VIAL IV ONE (10:25)
[2021-01-13] MEDS ORDERED: GLYCOPYRROLATE 0.2 MG/ML 2 ML VIAL ONE (10:25)
[2021-01-13] MEDS ORDERED: fentaNYL (PF) 50 MCG/ML 2 ML AMP ONE (10:25)
--- NOTE | 2021-01-13 10:25 | P.GSHP ---
History of Present Illness H&P Date: 01/13/21 Chief Complaint: Internal andHemorrhoids This is a 65-year-old female who presents today for monitoring. She's had issues with internal and external hemorrhoids. Past Medical History Past Medical History: Asthma, Hyperlipidemia, Osteoarthritis (OA), Thyroid Disorder Additional Past Medical History / Comment(s): takes depakote for migraine headaches, hemmorhoids, nerve pain, diverticulitus History of Any Multi-Drug Resistant Organisms: None Reported Past Surgical History: Back Surgery, Cholecystectomy, Hysterectomy, Orthopedic Surgery Additional Past Surgical History / Comment(s): back surg. x2, lumbar fusion, left shoulder rotator cuff Past Anesthesia/Blood Transfusion Reactions: Postoperative Nausea & Vomiting (PONV) Smoking Status: Current some day smoker - Past Family History Mother Family Medical History: Cancer Additional Family Medical History / Comment(s): brain Medications and Allergies Home Medications Medication Instructions Recorded Confirmed Type Zolpidem Tartrate [Ambien Cr] 12.5 mg PO HS PRN 01/22/15 01/13/21 History Divalproex [Depakote] 125 mg PO QAM 09/03/16 01/13/21 History Estrogens, Conjugated [Premarin] 0.3 mg PO DAILY 09/03/16 01/13/21 History HYDROcodone/APAP 7.5-325MG [[place] 1 tab PO DAILY PRN 09/03/16 01/13/21 History 7.5-325] Morphine Sulfate ER [Ms Contin 15 mg PO DAILY 09/03/16 01/13/21 History 15Mg] Morphine Sulfate ER [Ms Contin 30 mg PO DAILY 09/03/16 01/13/21 History 30Mg] Albuterol Inhaler (Mhu) [Ventolin 1 - 2 puff INHALATION RT-Q6H PRN 06/08/19 01/13/21 History Hfa Inhaler] Escitalopram [Lexapro] 20 mg PO HS 06/08/19 01/13/21 History Atorvastatin [Lipitor] 20 mg PO DAILY 12/19/20 01/13/21 History Gabapentin 300 mg PO TID 12/19/20 01/13/21 History Levothyroxine Sodium [Synthroid] 100 mcg PO DAILY 12/19/20 01/13/21 History Allergies Allergy/AdvReac Type Severity Reaction Status Date / Time Iodinated Contrast Media Allergy Rash/Hives/ Verified 01/13/21 09:17 [Iodinated Contrast Media - Swelling Oral and] Surgical - Exam Vital Signs Temp Pulse Resp BP Pulse Ox 98.0 F 68 16 164/74 95 01/13/21 09:16 01/13/21 09:16 01/13/21 09:16 01/13/21 09:16 01/13/21 09:16 - General well developed, well nourished, no distress - Eyes PERRL - ENT normal pinna - Neck no masses - Respiratory normal expansion - Cardiovascular Rhythm: regular - Abdomen Abdomen: soft, non tender Assessment and Plan Assessment: Internal and and external hemorrhoids 1. We'll perform hemorrhoidectomy..
[2021-01-13] MEDS ORDERED: SODIUM CHLORIDE 0.9% 100 ML with ceFAZolin 2,000 MG IV ONE ×2 (10:46)
[2021-01-13] MEDS ORDERED: BUPIVACAINE (PF) 0.25% 30 ML VIAL SQ ONE (10:53)
[2021-01-13] MEDS ORDERED: LIDOCAINE 1%-EPI 1:100,000 20 ML VIAL SQ ONE (10:57)
--- NOTE | 2021-01-13 11:20 | P.OP ---
Date of Procedure: 01/13/21 Preoperative Diagnosis: Internal and external hemorrhoids Postoperative Diagnosis: Internal and external hemorrhoids Procedure(s) Performed: Internal and external hemorrhoidectomy Anesthesia: KYLER Surgeon: Wilmar Rodriguez Estimated Blood Loss (ml): 5 Pathology: other (Internal and external hemorrhoids) Condition: stable Disposition: PACU Description of Procedure: The patient's placed on the operative table in the prone position after receiving general endotracheal anesthesia. Her anus was prepped and draped usual sterile fashion. The anus exam. Patient will large left lateral hemorrhoidal column and a large right posterior hemorrhoidal column. The anal retractors placed anus. The hemorrhoids were grasped. Allis this is a somewhat scissors the hemorrhoidectomy is performed. The left lateral hemorrhoid was performed first and the right posterior hemorrhoidectomy is performed. There is no bleeding seen. Patient was sent to recovery room in stable condition.
[2021-01-13] MEDS ORDERED: LACTATED RINGERS 1,000 ML IV ONE ×2 (11:21)
[2021-01-13 11:30] VITALS: TEMP 97.8
[2021-01-13 12:02] VITALS: RESP 16
[2021-01-13 12:23] VITALS: BP 130/79; PULSE 66
== END 2021-01-13 12:38 | disposition home or self-care (01) ==
LOC: OR 08:45
PROVIDERS: ATTEND Surgery
DX: K64.8 Other hemorrhoids (principal); K64.4 Residual hemorrhoidal skin tags; J45.909 Unspecified asthma, uncomplicated; E78.5 Hyperlipidemia, unspecified; M19.90 Unspecified osteoarthritis, unspecified site; E07.9 Disorder of thyroid, unspecified; G43.909 Migraine, unspecified, not intractable, without status migrainosus; M79.2 Neuralgia and neuritis, unspecified; F41.9 Anxiety disorder, unspecified; F32.9 Major depressive disorder, single episode, unspecified; Z87.19 Personal history of other diseases of the digestive system; Z90.49 Acquired absence of other specified parts of digestive tract; Z90.710 Acquired absence of both cervix and uterus; Z98.1 Arthrodesis status; Z98.890 Other specified postprocedural states; F17.200 Nicotine dependence, unspecified, uncomplicated; Z80.8 Family history of malignant neoplasm of other organs or systems; Z79.890 Hormone replacement therapy; Z79.891 Long term (current) use of opiate analgesic; Z79.899 Other long term (current) drug therapy; Z91.041 Radiographic dye allergy status
CPT/HCPCS: 88304; 46260; J2250; J1100; J2710; J2405; J0690; J2001; J3010; J0330; J2704; J1644

== ENCOUNTER 2021-02-21 13:39 | Inpatient (IN) | payer OTHER ==
[2021-02-21] MEDS ORDERED: ONDANSETRON 4 MG/2 ML VIAL IVP STA ×2 (14:12→16:12)
[2021-02-21] MEDS ORDERED: SODIUM CHLORIDE 0.9% 1,000 ML IV STA (14:12)
--- NOTE | 2021-02-21 14:14 | ED ---
Nausea/Vomiting/Diarrhea HPI - General Chief complaint: Nausea/Vomiting/Diarrhea Stated complaint: N/V/D Time Seen by Provider: 02/21/21 13:56 Source: patient Mode of arrival: wheelchair Limitations: no limitations - History of Present Illness Initial comments: Patient presents with vomiting and diarrhea, and belly pain. Pain is in the middle of the belly. It doesn't radiate to her. Nothing makes it better or worse. She wasn't doing anything when the symptoms began. She has taken no medicine for the symptoms. She has no blood in the stool or black or tarry stool. She has not had any sick contacts. She has not traveled anywhere. She denies injuries. She has no palpitations or shortness of breath. The pain does not rate the back or the sides. - Related Data Home Medications Medication Instructions Recorded Confirmed Zolpidem Tartrate [Ambien Cr] 12.5 mg PO HS PRN 01/22/15 01/13/21 Divalproex [Depakote] 125 mg PO QAM 09/03/16 01/13/21 Estrogens, Conjugated [Premarin] 0.3 mg PO DAILY 09/03/16 01/13/21 HYDROcodone/APAP 7.5-325MG [[place] 1 tab PO DAILY PRN 09/03/16 01/13/21 7.5-325] Morphine Sulfate ER [Ms Contin 15 mg PO DAILY 09/03/16 01/13/21 15Mg] Morphine Sulfate ER [Ms Contin 30 mg PO DAILY 09/03/16 01/13/21 30Mg] Albuterol Inhaler (Mhu) [Ventolin 1 - 2 puff INHALATION RT-Q6H PRN 06/08/19 01/13/21 Hfa Inhaler] Escitalopram [Lexapro] 20 mg PO HS 06/08/19 01/13/21 Atorvastatin [Lipitor] 20 mg PO DAILY 12/19/20 01/13/21 Gabapentin 300 mg PO TID 12/19/20 01/13/21 Levothyroxine Sodium [Synthroid] 100 mcg PO DAILY 12/19/20 01/13/21 Previous Rx's Medication Instructions Recorded Acetaminophen Tab [Tylenol] 650 mg PO Q6H #30 tab 01/13/21 Docusate [Colace] 100 mg PO BID #20 capsule 01/13/21 Ibuprofen [Motrin] 600 mg PO Q6HR PRN #40 tab 01/13/21 oxyCODONE HCL [OxyIR] 5 mg PO Q6H PRN 3 Days #10 tab 01/13/21 Allergies Allergy/AdvReac Type Severity Reaction Status Date / Time Iodinated Contrast Media Allergy Rash/Hives/ Verified 02/21/21 13:52 [Iodinated Contrast Media - Swelling Oral and] Review of Systems ROS Statement: Those systems with pertinent positive or pertinent negative responses have been documented in the HPI. ROS Other: All systems not noted in ROS Statement are negative. Past Medical History Past Medical History: Asthma, Hyperlipidemia, Osteoarthritis (OA), Thyroid Disorder Additional Past Medical History / Comment(s): takes depakote for migraine headaches, hemmorhoids, nerve pain, diverticulitus History of Any Multi-Drug Resistant Organisms: None Reported Past Surgical History: Back Surgery, Cholecystectomy, Hysterectomy, Orthopedic Surgery Additional Past Surgical History / Comment(s): back surg. x2, lumbar fusion, left shoulder rotator cuff Past Anesthesia/Blood Transfusion Reactions: Postoperative Nausea & Vomiting (PONV) Past Psychological History: Anxiety, Depression Smoking Status: Current some day smoker Past Alcohol Use History: None Reported Past Drug Use History: None Reported - Past Family History Mother Family Medical History: Cancer Additional Family Medical History / Comment(s): brain General Exam Limitations: no limitations General appearance: alert, in no apparent distress Head exam: Present: atraumatic, normocephalic, normal inspection Eye exam: Present: normal appearance, PERRL, EOMI. Absent: scleral icterus, conjunctival injection, periorbital swelling ENT exam: Present: normal exam, mucous membranes moist Neck exam: Present: normal inspection. Absent: tenderness, meningismus, lymphadenopathy Respiratory exam: Present: normal lung sounds bilaterally. Absent: respiratory distress, wheezes, rales, rhonchi, stridor Cardiovascular Exam: Present: regular rate, normal rhythm, normal heart sounds. Absent: systolic murmur, diastolic murmur, rubs, gallop, clicks GI/Abdominal exam: Present: soft, tenderness, normal bowel sounds. Absent: distended, guarding, rebound, rigid Extremities exam: Present: normal inspection, full ROM, normal capillary refill. Absent: tenderness, pedal edema, joint swelling, calf tenderness Back exam: Present: normal inspection Neurological exam: Present: alert, oriented X3, CN II-XII intact Psychiatric exam: Present: normal affect, normal mood Skin exam: Present: warm, dry, intact, normal color. Absent: rash Course Vital Signs 02/21/21 02/21/21 13:50 14:58 Temperature 97.8 F Pulse Rate 65 85 Respiratory 16 18 Rate Blood Pressure 155/80 149/58 O2 Sat by Pulse 98 97 Oximetry Medical Decision Making - Medical Decision Making Patient presents with vomiting and diarrhea. CT shows pancolitis. She received multiple rounds of medication for her nausea and vomiting, but she is still not tolerating oral intake. I have placed a consult GI. Patient will be admitted to the hospital. - Lab Data Result diagrams: 02/21/21 14:24 02/21/21 14:24 Lab Results 02/21/21 02/21/21 02/21/21 Range/Units 14:24 14:24 14:24 WBC 18.4 H (3.8-10.6) k/uL RBC 4.96 (3.80-5.40) m/uL Hgb 16.9 H (11.4-16.0) gm/dL Hct 47.1 H (34.0-46.0) % MCV 94.9 (80.0-100.0) fL MCH 34.0 (25.0-35.0) pg MCHC 35.8 (31.0-37.0) g/dL RDW 12.6 (11.5-15.5) % Plt Count 362 (150-450) k/uL MPV 7.9 Neutrophils % 79 % Lymphocytes % 16 % Monocytes % 3 % Eosinophils % 1 % Basophils % 1 % Neutrophils # 14.5 H (1.3-7.7) k/uL Lymphocytes # 3.0 (1.0-4.8) k/uL Monocytes # 0.5 (0-1.0) k/uL Eosinophils # 0.2 (0-0.7) k/uL Basophils # 0.1 (0-0.2) k/uL Sodium 144 (137-145) mmol/L Potassium 3.9 (3.5-5.1) mmol/L Chloride 107 (98-107) mmol/L Carbon Dioxide 21 L (22-30) mmol/L Anion Gap 16 mmol/L BUN 13 (7-17) mg/dL Creatinine 0.78 (0.52-1.04) mg/dL Est GFR (CKD-EPI)AfAm >90 (>60 ml/min/1.73 sqM) Est GFR (CKD-EPI)NonAf 82 (>60 ml/min/1.73 sqM) Glucose 131 H (74-99) mg/dL Calcium 11.3 H (8.4-10.2) mg/dL Total Bilirubin 0.7 (0.2-1.3) mg/dL AST 34 (14-36) U/L ALT 24 (4-34) U/L Alkaline Phosphatase 193 H (38-126) U/L Troponin I (0.000-0.034) ng/mL Total Protein 8.4 H (6.3-8.2) g/dL Albumin 5.2 H (3.5-5.0) g/dL Lipase 95 (23-300) U/L Urine Color Yellow Urine Appearance Cloudy H (Clear) Urine pH 6.0 (5.0-8.0) Ur Specific [place] 1.021 (1.001-1.035) Urine Protein 1+ H (Negative) Urine Glucose (UA) Negative (Negative) Urine Ketones Trace H (Negative) Urine Blood Trace H (Negative) Urine Nitrite Negative (Negative) Urine Bilirubin Negative (Negative) Urine Urobilinogen 2.0 (<2.0) mg/dL Ur Leukocyte Esterase Negative (Negative) Urine RBC 4 (0-5) /hpf Urine WBC 3 (0-5) /hpf Ur Squamous Epith Cells 10 H (0-4) /hpf Calcium Oxalate Crystal Moderate H (None) /hpf Urine Bacteria Rare H (None) /hpf Urine Mucus Many H (None) /hpf 02/21/21 Range/Units 14:24 WBC (3.8-10.6) k/uL RBC (3.80-5.40) m/uL Hgb (11.4-16.0) gm/dL Hct (34.0-46.0) % MCV (80.0-100.0) fL MCH (25.0-35.0) pg MCHC (31.0-37.0) g/dL RDW (11.5-15.5) % Plt Count (150-450) k/uL MPV Neutrophils % % Lymphocytes % % Monocytes % % Eosinophils % % Basophils % % Neutrophils # (1.3-7.7) k/uL Lymphocytes # (1.0-4.8) k/uL Monocytes # (0-1.0) k/uL Eosinophils # (0-0.7) k/uL Basophils # (0-0.2) k/uL Sodium (137-145) mmol/L Potassium (3.5-5.1) mmol/L Chloride (98-107) mmol/L Carbon Dioxide (22-30) mmol/L Anion Gap mmol/L BUN (7-17) mg/dL Creatinine (0.52-1.04) mg/dL Est GFR (CKD-EPI)AfAm (>60 ml/min/1.73 sqM) Est GFR (CKD-EPI)NonAf (>60 ml/min/1.73 sqM) Glucose (74-99) mg/dL Calcium (8.4-10.2) mg/dL Total Bilirubin (0.2-1.3) mg/dL AST (14-36) U/L ALT (4-34) U/L Alkaline Phosphatase (38-126) U/L Troponin I <0.012 (0.000-0.034) ng/mL Total Protein (6.3-8.2) g/dL Albumin (3.5-5.0) g/dL Lipase (23-300) U/L Urine Color Urine Appearance (Clear) Urine pH (5.0-8.0) Ur Specific [place] (1.001-1.035) Urine Protein (Negative) Urine Glucose (UA) (Negative) Urine Ketones (Negative) Urine Blood (Negative) Urine Nitrite (Negative) Urine Bilirubin (Negative) Urine Urobilinogen (<2.0) mg/dL Ur Leukocyte Esterase (Negative) Urine RBC (0-5) /hpf Urine WBC (0-5) /hpf Ur Squamous Epith Cells (0-4) /hpf Calcium Oxalate Crystal (None) /hpf Urine Bacteria (None) /hpf Urine Mucus (None) /hpf 02/21/21 14:23 Twelve-lead EKG shows ventricular rate 62 bpm, normal OH interval and Obdulio complexes, no ST elevation or depression, interpreted by me as normal sinus rhythm. Disposition Clinical Impression: Colitis Disposition: ADMITTED IP TO THIS HOSP Condition: Fair Is patient prescribed a controlled substance at d/c from ED?: No Referrals: Isidro Diamond MD [Primary Care Provider] - 1-2 days
[2021-02-21] MEDS ORDERED: diphenhydrAMINE 50 MG/ML 1 ML VIAL IVP STA (14:22)
[2021-02-21] MEDS ORDERED: methylPREDNISolone SOD SUCCI 125 MG/2 ML VIAL IV STA (14:22)
[2021-02-21 14:32] LABS: Basophils # (A) 0.1 k/uL (0-0.2); Basophils % (A) 1 %; Eosinophils # (A) 0.2 k/uL (0-0.7); Eosinophils % (A) 1 %; HCT 47.1 % (34.0-46.0); HGB 16.9 gm/dL (11.4-16.0); Lymphocytes % (A) 16 %; MCHC 35.8 g/dL (31.0-37.0); MCV 94.9 fL (80.0-100.0); Mean Platelet Volume 7.9; Monocytes # (A) 0.5 k/uL (0-1.0); Monocytes % (A) 3 %; Neutrophils # (A) 14.5 k/uL (1.3-7.7); Neutrophils % (A) 79 %; Platelet Count 362 k/uL (150-450); RBC 4.96 m/uL (3.80-5.40); RDW 12.6 % (11.5-15.5); WBC 18.4 k/uL (3.8-10.6)
[2021-02-21 14:42] LABS: ALT 24 U/L (4-34); AST 34 U/L (14-36); African American GFR (CKD) >90 (>60 ml/min/1.73 sqM); Albumin 5.2 g/dL (3.5-5.0); Alkaline Phosphatase 193 U/L (38-126); Anion Gap 16 mmol/L; Blood Urea Nitrogen 13 mg/dL (7-17); Calcium 11.3 mg/dL (8.4-10.2); Carbon Dioxide 21 mmol/L (22-30); Chloride 107 mmol/L (98-107); Glucose 131 mg/dL (74-99); Lipase 95 U/L (23-300); Non-African American GFR(CKD) 82 (>60 ml/min/1.73 sqM); Potassium 3.9 mmol/L (3.5-5.1); Sodium 144 mmol/L (137-145); Total Bilirubin 0.7 mg/dL (0.2-1.3); Total Protein 8.4 g/dL (6.3-8.2)
[2021-02-21 15:19] LABS: Appearance,Urine Cloudy (Clear); Bacteria,Urine Rare /hpf; Bilirubin,Urine Negative (Negative); Blood,Urine Trace (Negative); Calcium Oxalate Crystals,Urine Moderate /hpf; Color,Urine Yellow; Glucose,Urine (UA) Negative (Negative); Ketones,Urine Trace (Negative); Leukocyte Esterase,Urine Negative (Negative); Mucus,Urine Many /hpf; Nitrite,Urine Negative (Negative); Protein,Urine 1+ (Negative); RBC,Urine 4 /hpf (0-5); Specific Gravity,Urine 1.021 (1.001-1.035); Squamous Epithelial Cell,Urine 10 /hpf (0-4); WBC,Urine 3 /hpf (0-5)
--- NOTE | 2021-02-21 15:50 | CT ---
EXAMINATION TYPE: CT abdomen pelvis w con DATE OF EXAM: 02/21/2021 COMPARISON: 03/08/2017 HISTORY: 65-year-old female periumbilical pain, nausea, vomiting, diarrhea TECHNIQUE: Contiguous axial scanning of the abdomen and pelvis following administration of 100 ml Iso jenni 300 IV contrast. Delayed images through the kidneys and coronal/sagittal reconstructions perform ed. CT DLP: 963.8 mGycm Automated exposure control for dose reduction was used. FINDINGS: Heart normal size without pericardial effusion. Lung bases clear without pleural effusion. Diffuse low-attenuation of the hepatic parenchyma. No focal liver lesion. Portal venous system is pat ent. No biliary ductal dilatation. Gallbladder surgically absent. Adrenal glands, kidneys, spleen with tiny anterior splenule, and pancreas within normal limits. Moderate atherosclerotic calcifications abdominal aorta without aneurysm. Mild to moderate culver-enteric wall thickening sparing the duodenum. Couple segments of fluid-filled sm all bowel loops measuring up to 2.4 cm. There is also pancolonic wall thickening. No significant stoo l burden. Sigmoid diverticulosis. No inflammatory changes centered at a diverticulum. No free air. Trace pelvic free fluid is noted. No abdominal lymphadenopathy. Bladder nondistended. Uterus surgically absent. Neither ovary is visualized. No pelvic lymphadenopath y seen. Bones bone island within the superior left acetabulum is unchanged. Right L5-S1 assimilation joint. A nterior L4-L5 lumbar fusion changes. IMPRESSION: 1. NONSPECIFIC CULVER ENTEROCOLITIS WITH MILD TO MODERATE INFLAMMATORY WALL THICKENING AND TRACE REACTIV E PELVIC FREE FLUID. NO ABSCESS OR FREE AIR. 2. SEVERE HEPATIC STEATOSIS.
[2021-02-21] MEDS ORDERED: ONDANSETRON 4 MG/2 ML VIAL IVP PRN (16:23)
[2021-02-21] MEDS ORDERED: NALOXONE 0.4 MG/ML 1 ML VIAL IV PRN (16:23)
[2021-02-21] MEDS ORDERED: HYDROcodone/APAP 7.5-325MG 1 EACH TAB PO PRN (17:24)
[2021-02-21] MEDS: metroNIDAZOLE-NS PMX 500 MG in SALINE 1 100ML.BAG IVPB SCH (18:19)
[2021-02-21] MEDS: MORPHINE SULFATE 4 MG/ML SYRINGE IV PRN (20:01)
[2021-02-21] MEDS: ZOLPIDEM 5 MG TAB PO PRN (22:13)
[2021-02-22] MEDS: methylPREDNISolone SOD SUCCI 40 MG/ML 1 ML VIAL IV SCH ×4 (00:43→23:33)
[2021-02-22] MEDS: metroNIDAZOLE-NS PMX 500 MG in SALINE 1 100ML.BAG IVPB SCH ×4 (00:44→23:33)
[2021-02-22] MEDS: LEVOTHYROXINE 100 MCG TAB PO SCH (05:53)
--- NOTE | 2021-02-22 06:07 | HP ---
HISTORY AND PHYSICAL A 65-year-old who was admitted with nausea, vomiting, diarrhea. CT scan shows pancolitis. Worsening abdominal pain, diarrhea, nausea, vomiting. Has not traveled anywhere. No shortness of breath. HOME MEDICATIONS: Ambien CR 12.5 daily, Depakote 125 daily, 0.3 mg daily, [employer] 7.5 one daily p.r.n., MS Contin 15 mg daily and 30 mg daily, Ventolin HFA 2 puffs q.4 hours p.r.n., Lexapro 20 mg daily, Lipitor 20 mg daily, gabapentin 300 t.i.d., Synthroid 100 mcg daily. ALLERGIES: IODINE. REVIEW OF SYSTEMS: Fourteen-point review of systems negative except for mentioned in HPI. PAST MEDICAL HISTORY: Asthma, dyslipidemia, osteoarthritis, hypothyroidism, migraine headaches, hemorrhoids, nerve pain, diverticulitis. SURGICAL HISTORY: Back surgery, cholecystectomy, hysterectomy, orthopedic surgery, lumbar fusion, back surgery x2, left shoulder rotator cuff. SOCIAL HISTORY: History of anxiety and depression. Current everyday smoker. No alcohol. No drugs. FAMILY HISTORY: Mother with cancer of the brain. PHYSICAL EXAMINATION: VITAL SIGNS: Stable, afebrile. Blood pressure is 140s 150s over 50s to 80s, O2 97-98, respiratory 16-18. CARDIOVASCULAR: S1-S2. PSYCH: Fair mood and affect. NEUROLOGIC: Alert and oriented x3. OPHTHALMOLOGIC: Pupils equal, round, reactive. LUNGS: Clear. CARDIOVASCULAR: S1, S2. ABDOMEN: Diffuse tenderness. Slightly increased bowel sounds. Diffuse tenderness across the abdomen. Minimal guarding. No rebound. No rigidity. Negative Rodriguez's. Negative Homans. EXTREMITIES: No cyanosis, clubbing, edema. BACK: Normal inspection. CRANIAL NERVES: Alert and oriented x3. Psych fair mood and affect. PLAN: CT scan shows pancolitis. Give her nausea and vomiting medicine, IV Flagyl, IV Solu- Medrol, GI consult. Await further recommendations. Monitor for signs of bleeding. Leukocytosis secondary to colitis. History of chronic pain syndrome, etc. Please see further orders. Await for GI recommendations. MMODL / IJN: [id number] /
[2021-02-22] MEDS: ESCITALOPRAM 20 MG TAB PO SCH (07:46)
[2021-02-22] MEDS: ESTROGENS, CONJUGATED 0.3 MG TAB PO SCH (07:46)
[2021-02-22] MEDS: DIVALPROEX 250 MG TABLET.DR PO SCH (07:46)
[2021-02-22] MEDS: ATORVASTATIN 20 MG TAB PO SCH (07:47)
[2021-02-22] MEDS: MORPHINE SULFATE 4 MG/ML SYRINGE IV PRN ×5 (07:54→23:31)
[2021-02-22 09:30] LABS: HCT 42.3 % (34.0-46.0); HGB 14.3 gm/dL (11.4-16.0); MCH 32.7 pg (25.0-35.0); MCHC 33.9 g/dL (31.0-37.0); MCV 96.3 fL (80.0-100.0); Mean Platelet Volume 7.2; Platelet Count 280 k/uL (150-450); RBC 4.39 m/uL (3.80-5.40); RDW 12.8 % (11.5-15.5); WBC 16.7 k/uL (3.8-10.6)
--- NOTE | 2021-02-22 14:28 | P.CONS ---
History of Present Illness - Reason for Consult Consult date: 02/22/21 Pancolitis Requesting physician: Isidro Diamond - Chief Complaint Abdominal pain - History of Present Illness This a pleasant 65-year-old female who presented to the emergency department with nausea vomiting diarrhea and severe abdominal pain. She has a past medical history that includes asthma, hyperlipidemia, osteoarthritis, thyroid disorder, anxiety, depression, migraine headaches, chronic pain syndrome, diverticulosis, and every day smoker. He shouldn't states she had severe sharp pain that started around 5 AM yesterday morning was constant, with nausea and vomiting and diarrhea. Denies any blood in her stool, hematemesis or coffee-ground emesis. She denies any sick contacts or traveling. States she has chronic issues with constipation and diarrhea and takes Metamucil every night. She had a recent colonoscopy on 12/21/[address] Rodriguez that showed diverticulosis, internal and external hemorrhoids and therefore underwent any hemorrhoidectomy on 01/13/[address] Rodriguez. States her abdominal pain has improved some today, she did wake up this morning and it did return but is not as bad. Denies any further nausea or vomiting. Had a small loose bowel movement this morning she states was nonbloody. She denies any associated fe vers or chills. No previous EGD or history of peptic ulcer disease. CT of abdomen and pelvis shows nonspecific T and enterocolitis with mild to moderate inflammatory wall thickening and trace reactive pelvic free fluid. No abscess or free air. Severe hepatic steatosis. WBC on admission was 18.4, today's labs WBC 16.7, hemoglobin 14.3, hematocrit 42.3, platelets 280,000, total bilirubin 0.7, alkaline phosphatase 193, AST 34, ALT 24, lipase 95. Patient was started on Solu-Medrol 40 mg every 8 hours IV piggyback as well as Flagyl 500 mg every 8 hours Review of Systems REVIEW OF SYSTEMS: CARDIOPULMONARY: No chest pain or shortness of breath. Gastrointestinal: Appear sharp abdominal pain. Nausea and vomiting, nonbloody, and pelvis.. No hematemesis, coffee-ground emesis. No rectal bleeding, or melena. GENITOURINARY: No dysuria or hematuria. MUSCULOSKELETAL: Reports normal range of motion., Joint pain. SKIN: No rashes. No jaundice. ENDOCRINE: No chills, fevers. No excessive weight gain or loss. No polydipsia or polyuria. PSYCHIATRIC: Unremarkable. NEUROLOGY: No change in mental status. Denies dizziness, headache. ENT: Vision unremarkable. CONSTITUTIONAL: No recent weight loss. No fever, chills, night sweats. Past Medical History Past Medical History: Asthma, Hyperlipidemia, Osteoarthritis (OA), Thyroid Disorder Additional Past Medical History / Comment(s): takes depakote for migraine headaches, hemmorhoids, nerve pain, diverticulitus History of Any Multi-Drug Resistant Organisms: None Reported Past Surgical History: Back Surgery, Cholecystectomy, Hysterectomy, Orthopedic Surgery Additional Past Surgical History / Comment(s): back surg. x2, lumbar fusion, left shoulder rotator cuff Past Anesthesia/Blood Transfusion Reactions: Postoperative Nausea & Vomiting (PONV) Past Psychological History: Anxiety, Depression Smoking Status: Current some day smoker Past Alcohol Use History: None Reported Additional Past Alcohol Use History / Comment(s): smokes occasionally, 3-4 cigarettes, Past Drug Use History: None Reported - Past Family History Mother Family Medical History: Cancer Additional Family Medical History / Comment(s): brain Medications and Allergies Home Medications Medication Instructions Recorded Confirmed Type Zolpidem Tartrate [Ambien Cr] 12.5 mg PO HS PRN 01/22/15 02/21/21 History Divalproex [Depakote] 125 mg PO DAILY 09/03/16 02/21/21 History Estrogens, Conjugated [Premarin] 0.3 mg PO DAILY 09/03/16 02/21/21 History HYDROcodone/APAP 7.5-325MG [[place] 1 tab PO DAILY PRN 09/03/16 02/21/21 History 7.5-325] Morphine Sulfate ER [Ms Contin 15 mg PO BID PRN 09/03/16 02/21/21 History 15Mg] Morphine Sulfate ER [Ms Contin 30 mg PO BID PRN 09/03/16 02/21/21 History 30Mg] Escitalopram [Lexapro] 20 mg PO DAILY 06/08/19 02/21/21 History Atorvastatin [Lipitor] 20 mg PO DAILY 12/19/20 02/21/21 History Levothyroxine Sodium [Synthroid] 100 mcg PO DAILY 12/19/20 02/21/21 History Diphenoxylate HCl/Atropine 1 tab PO BID PRN 02/21/21 02/21/21 History [Lomotil 2.5-0.025 mg Tablet] Allergies Allergy/AdvReac Type Severity Reaction Status Date / Time Iodinated Contrast Media Allergy Rash/Hives/ Verified 02/21/21 17:06 [Iodinated Contrast Media - Swelling Oral and] Physical Exam Vitals: Vital Signs Temp Pulse Pulse Resp BP BP Pulse Ox 02/22/21 13:36 18 02/22/21 07:00 97.7 F 70 18 145/69 97 02/22/21 01:35 97.6 F 62 20 131/60 97 02/21/21 19:51 98.6 F 56 L 16 136/70 98 02/21/21 17:58 97.9 F 56 L 18 163/73 96 02/21/21 16:53 69 18 152/83 99 02/21/21 14:58 85 18 149/58 97 Intake and Output 02/21/21 02/22/21 02/22/21 22:59 06:59 14:59 Intake Total 100 Balance 100 Intake: Intake, IV Titration 100 Amount metroNIDAZOLE-NS PMX 500 100 mg In Saline 1 100ml.bag @ 100 mls/hr IVPB Q8HR [facility] Rx#:[id number] Other: Voiding Method Toilet Toilet # Voids 1 Weight 68.039 kg General appearance: The patient is alert, oriented, appears in no acute distress. HET: Head is normocephalic and atraumatic. Conjunctiva pink, sclera anicteric. Neck: Supple without lymphadenopathy. Trachea midline. Heart: S1 S2. Regular rate and rhythm. Lungs: No crackles or wheezes are heard. Abdomen: Soft, nontender, nondistended with bowel sounds. No guarding or rigidity Extremities: Normal skin color and turgor. No pedal edema. Neurological: No focal deficits. Alert and oriented 3.. Results CBC & Chem 7: 02/22/21 09:05 02/21/21 14:24 Labs: Abnormal Lab Results - Last 24 Hours (Table) 02/21/21 02/21/21 02/21/21 Range/Units 14:24 14:24 14:24 WBC 18.4 H (3.8-10.6) k/uL Hgb 16.9 H (11.4-16.0) gm/dL Hct 47.1 H (34.0-46.0) % Neutrophils # 14.5 H (1.3-7.7) k/uL Carbon Dioxide 21 L (22-30) mmol/L Glucose 131 H (74-99) mg/dL Calcium 11.3 H (8.4-10.2) mg/dL Alkaline Phosphatase 193 H (38-126) U/L Total Protein 8.4 H (6.3-8.2) g/dL Albumin 5.2 H (3.5-5.0) g/dL Urine Appearance Cloudy H (Clear) Urine Protein 1+ H (Negative) Urine Ketones Trace H (Negative) Urine Blood Trace H (Negative) Ur Squamous Epith Cells 10 H (0-4) /hpf Calcium Oxalate Crystal Moderate H (None) /hpf Urine Bacteria Rare H (None) /hpf Urine Mucus Many H (None) /hpf 02/22/21 Range/Units 09:05 WBC 16.7 H (3.8-10.6) k/uL Hgb (11.4-16.0) gm/dL Hct (34.0-46.0) % Neutrophils # (1.3-7.7) k/uL Carbon Dioxide (22-30) mmol/L Glucose (74-99) mg/dL Calcium (8.4-10.2) mg/dL Alkaline Phosphatase (38-126) U/L Total Protein (6.3-8.2) g/dL Albumin (3.5-5.0) g/dL Urine Appearance (Clear) Urine Protein (Negative) Urine Ketones (Negative) Urine Blood (Negative) Ur Squamous Epith Cells (0-4) /hpf Calcium Oxalate Crystal (None) /hpf Urine Bacteria (None) /hpf Urine Mucus (None) /hpf CT scan - abdomen: report reviewed (Nonspecific culver enterocolitis with mild to moderate inflammatory wall thickening and trace reactive pelvic free fluid. No abscess or free air. Severe hepatic steatosis.) Assessment and Plan (1) Pancolitis Narrative/Plan: 65-year-old female who presented to the emergency department with severe onset of abdominal pain that began yesterday morning at 5 AM associated with nausea and vomiting. Patient has multiple comorbidities including chronic pain syndrome, history of diverticulosis, external and internal hemorrhoids for which he underwent colonoscopy in December of this year showing diverticulosis with internal and external hemorrhoids, and then underwent hemorrhoidectomy for internal and external hemorrhoids 01/13/[address] Rodriguez. She had several episodes of nausea and vomiting yesterday with constant abdominal pain. She had several episodes of diarrhea, which she states were nonbloody. She also states she has a history of chronic constipation and diarrhea and takes Metamucil nightly. CT of the abdomen and pelvis shows nonspecific and enterocolitis with mild to moderate inflammatory wall thickening and trace reactive pelvic free fluid. No abscess or free air. Severe hepatic steatosis. Currently on Flagyl and Solu-Medrol. Possible etiiology inflammatory, ischemic, or most likely infectious etiology. Current Visit: Yes Status: Acute Code(s): K51.00 - ULCERATIVE (CHRONIC) PANCOLITIS WITHOUT COMPLICATIONS SNOMED Code(s): 542717264 (2) Abdominal pain Current Visit: Yes Status: Acute Code(s): R10.9 - UNSPECIFIED ABDOMINAL PAIN SNOMED Code(s): 26077527 Plan: 1. Continue symptomatic and supportive care 2. Pain medications as needed 3. Unlikely inflammatory process, do not believe steroids would be beneficial 4. Will add broad-spectrum antibiotic Zosyn 5. Continue Flagyl 6. Clear liquid diet 7. Repeat CBC BMP in morning 8. CT abdomen and pelvis reviewed 9. No plans for endoscopic evaluation, recommend possible repeat colonoscopy in 6-8 weeks 10. Bentyl as needed Thank you for this consultation, we will continue to follow Dr. Glover I agree with the dictator's note, documented as a scribe by Muna Li.
[2021-02-22] MEDS: PIPERACILLIN-TAZOBACTAM 3.375 GM in SODIUM CHLORIDE 0.9% 100 ML IVPB SCH (19:23)
[2021-02-22] MEDS: ZOLPIDEM 5 MG TAB PO PRN (22:30)
[2021-02-23] MEDS: MORPHINE SULFATE 4 MG/ML SYRINGE IV PRN ×5 (03:50→22:36)
[2021-02-23] MEDS: LEVOTHYROXINE 100 MCG TAB PO SCH (05:52)
[2021-02-23] MEDS: metroNIDAZOLE-NS PMX 500 MG in SALINE 1 100ML.BAG IVPB SCH ×2 (07:50→16:24)
[2021-02-23] MEDS: DIVALPROEX 250 MG TABLET.DR PO SCH (07:50)
[2021-02-23] MEDS: methylPREDNISolone SOD SUCCI 40 MG/ML 1 ML VIAL IV SCH ×2 (07:50→16:24)
[2021-02-23] MEDS: ESTROGENS, CONJUGATED 0.3 MG TAB PO SCH (07:51)
[2021-02-23] MEDS: ATORVASTATIN 20 MG TAB PO SCH (07:51)
[2021-02-23] MEDS: ESCITALOPRAM 20 MG TAB PO SCH (07:51)
[2021-02-23] MEDS: DICYCLOMINE 20 MG TAB PO PRN ×2 (08:06→14:12)
[2021-02-23] MEDS: PIPERACILLIN-TAZOBACTAM 3.375 GM in SODIUM CHLORIDE 0.9% 100 ML IVPB SCH ×2 (09:39→22:14)
[2021-02-23 12:59] LABS: HCT 41.5 % (34.0-46.0); HGB 14.1 gm/dL (11.4-16.0); MCH 32.9 pg (25.0-35.0); MCHC 34.1 g/dL (31.0-37.0); MCV 96.5 fL (80.0-100.0); Mean Platelet Volume 7.6; Platelet Count 296 k/uL (150-450); RDW 12.7 % (11.5-15.5)
--- NOTE | 2021-02-23 16:02 | P.PN ---
Subjective Progress Note Date: 02/23/21 Principal diagnosis: Pancolitis She was seen and examined lying in bed. She states she still having significant abdominal pain and cramping. Denies any nausea or vomiting. Had a small episode of loose bowel movement this morning denies any blood in her stool. Objective - Vital Signs Vital signs: Vital Signs Temp 97.5 F L 02/23/21 07:00 Pulse 54 L 02/23/21 07:00 Resp 17 02/23/21 07:00 BP 133/58 02/23/21 07:00 Pulse Ox 96 02/23/21 07:00 Intake & Output 02/22/21 02/23/21 02/23/21 18:59 06:59 18:59 Intake Total 100 Balance 100 Intake: Intake, IV Titration 100 Amount metroNIDAZOLE-NS PMX 500 100 mg In Saline 1 100ml.bag @ 100 mls/hr IVPB Q8HR SUMEET Rx#:[id number] Other: Voiding Method Toilet Toilet # Voids 2 1 - Exam General appearance: The patient is alert, oriented, appears in no acute distress. HET: Head is normocephalic and atraumatic. Conjunctiva pink. Sclera anicteric. Neck: Supple without lymphadenopathy. Abdomen: Soft, lower abdominal tenderness, nondistended with bowel sounds. No guarding or rigidity. Extremities: Normal skin color and turgor. No pedal edema Skin: No rashes, no jaundice Neurological: No focal deficits. Alert and oriented 3. - Labs CBC & Chem 7: 02/23/21 12:19 02/21/21 14:24 Labs: Abnormal Lab Results - Last 24 Hours (Table) 02/22/21 Range/Units 09:05 C-Reactive Protein 1.3 H (0.0-0.8) mg/dL Assessment and Plan (1) Pancolitis Narrative/Plan: 65-year-old female who presented to the emergency department with severe onset of abdominal pain that began yesterday morning at 5 AM associated with nausea and vomiting. Patient has multiple comorbidities including chronic pain syndrome, history of diverticulosis, external and internal hemorrhoids for which he underwent colonoscopy in December of this year showing diverticulosis with internal and external hemorrhoids, and then underwent hemorrhoidectomy for internal and external hemorrhoids 01/13/[address] Rodriguez. She had several episodes of nausea and vomiting yesterday with constant abdominal pain. She had several episodes of diarrhea, which she states were nonbloody. She also states she has a history of chronic constipation and diarrhea and takes Metamucil nightly. CT of the abdomen and pelvis shows nonspecific and enterocolitis with mild to moderate inflammatory wall thickening and trace reactive pelvic free fluid. No abscess or free air. Severe hepatic steatosis. Currently on Flagyl and Solu-Medrol. Possible etiiology inflammatory, ischemic, or most likely infectious etiology. Current Visit: Yes Status: Acute Code(s): K51.00 - ULCERATIVE (CHRONIC) PANCOLITIS WITHOUT COMPLICATIONS SNOMED Code(s): 749026863 (2) Abdominal pain Current Visit: Yes Status: Acute Code(s): R10.9 - UNSPECIFIED ABDOMINAL PAIN SNOMED Code(s): 87362479 Plan: 1. Continue symptomatic and supportive care 2. Pain medications as needed 3. Unlikely inflammatory process, do not believe steroids would be beneficial 4. Will add broad-spectrum antibiotic Zosyn 5. Continue Flagyl 6. Clear liquid diet 7. CT abdomen and pelvis reviewed 8. No plans for endoscopic evaluation, recommend possible repeat colonoscopy in 6-8 weeks 9. Bentyl as needed 10. C. Difficile toxin and stool cultures ordered Thank you for this consultation, we will continue to follow Dr. Glover I agree with the dictator's note, documented as a scribe by Muna Li.
[2021-02-23] MEDS: ZOLPIDEM 5 MG TAB PO PRN (22:36)
[2021-02-24] MEDS: methylPREDNISolone SOD SUCCI 40 MG/ML 1 ML VIAL IV SCH ×4 (02:24→23:49)
[2021-02-24] MEDS: metroNIDAZOLE-NS PMX 500 MG in SALINE 1 100ML.BAG IVPB SCH ×4 (02:29→23:49)
[2021-02-24] MEDS: LEVOTHYROXINE 100 MCG TAB PO SCH (06:07)
--- NOTE | 2021-02-24 07:12 | PN ---
PROGRESS NOTE A 65-year-old white female with pancolitis. States her morphine is not effective at 4 mg every 4 hours. She is remains on Zosyn and Flagyl, IV prednisone. Possibly give her some Bentyl for colitis, 20 mg q.i.d. Continue current medications. Cardiovascular S1-S2. Lungs clear. GI has increased bowel sounds x4. Diffuse tenderness. Hematology negative Homans. Psych fair mood and affect. ASSESSMENT: 1. Pancolitis. 2. Hypothyroidism. 3. Chronic pain syndrome. 4. Depression. 5. Possibly some irritable bowel syndrome, for which we will start some Bentyl, Flagyl, Zosyn, and possibly increased pain medicines as tolerated. MMODL / IJN: [id number] /
[2021-02-24] MEDS: ATORVASTATIN 20 MG TAB PO SCH (08:47)
[2021-02-24] MEDS: ESTROGENS, CONJUGATED 0.3 MG TAB PO SCH (08:48)
[2021-02-24] MEDS: DIVALPROEX 250 MG TABLET.DR PO SCH (08:48)
[2021-02-24] MEDS: ESCITALOPRAM 20 MG TAB PO SCH (08:48)
[2021-02-24] MEDS: MORPHINE SULFATE 4 MG/ML SYRINGE IV PRN ×3 (08:54→21:10)
[2021-02-24 09:14] LABS: Basophils # (A) 0.02 X 10*3/uL (0.00-0.10); Basophils % (A) 0.1 %; Eosinophils # (A) 0 X 10*3/uL (0.04-0.35); Eosinophils % (A) 0 %; HCT 41.2 % (37.2-46.3); HGB 14.2 g/dL (12.0-15.0); Lymphocytes # (A) 1.41 X 10*3/uL (0.90-5.00); Lymphocytes % (A) 10.5 %; MCH 33.3 pg (27.0-32.0); MCHC 34.5 g/dL (32.0-37.0); MCV 96.5 fL (80.0-97.0); Mean Platelet Volume 10.7 fL (9.5-12.2); Monocytes # (A) 0.35 X 10*3/uL (0.20-1.00); Monocytes % (A) 2.6 %; Neutrophils # (A) 11.52 X 10*3/uL (1.80-7.70); Neutrophils % (A) 85.6 %; Platelet Count 297 X 10*3/uL (140-440); RBC 4.27 X 10*6/uL (4.10-5.20); RDW 13.2 % (11.5-14.5); WBC 13.46 X 10*3/uL (4.50-10.00)
[2021-02-24 09:44] LABS: African American GFR (CKD) 106.9 (60.0-200.0); Albumin 4.2 g/dL (3.80-4.90); Albumin/Globulin Ratio 1.83 (1.60-3.17); Anion Gap 7.6 mmol/L (4.00-12.00); Calcium 10.3 mg/dL (8.7-10.3); Carbon Dioxide 27.4 mmol/L (21.6-31.8); Globulin 2.3 g/dL (1.6-3.3); Non-African American GFR(CKD) 92.2 (60.0-200.0); Potassium 4.1 mmol/L (3.5-5.5); Total Bilirubin 0.3 mg/dL (0.2-1.2); Total Protein 6.5 g/dL (6.2-8.2)
[2021-02-24] MEDS: PIPERACILLIN-TAZOBACTAM 3.375 GM in SODIUM CHLORIDE 0.9% 100 ML IVPB SCH ×2 (09:55→21:02)
[2021-02-24] MEDS: amLODIPine 5 MG TAB PO SCH (15:13)
[2021-02-24] MEDS: DICYCLOMINE 20 MG TAB PO PRN (15:17)
--- NOTE | 2021-02-24 16:24 | P.PN ---
Subjective Progress Note Date: 02/24/21 Principal diagnosis: Pancolitis The patient was seen and examined lying in bed. She states her abdominal pain has improved some. She did have to take more pain today however. Denies any nausea or vomiting. States she did have 3 episodes of loose stools,with no blood noted. She has been afebrile, denies any chills. Objective - Vital Signs Vital signs: Vital Signs Temp 97.8 F 02/24/21 07:00 Pulse 47 L 02/24/21 07:00 Resp 16 02/24/21 07:00 BP 179/67 02/24/21 07:00 Pulse Ox 97 02/24/21 07:00 Intake & Output 02/23/21 02/24/21 02/24/21 18:59 06:59 18:59 Other: Voiding Method Toilet Toilet # Voids 2 2 # Bowel Movements 1 - Exam General appearance: The patient is alert, oriented, appears in no acute di stress. HET: Head is normocephalic and atraumatic. Conjunctiva pink. Sclera anicteric. Neck: Supple without lymphadenopathy. Abdomen: Soft, lower abdominal tenderness, nondistended with bowel sounds. No guarding or rigidity. Extremities: Normal skin color and turgor. No pedal edema Skin: No rashes, no jaundice Neurological: No focal deficits. Alert and oriented 3. - Labs CBC & Chem 7: 02/24/21 05:09 02/24/21 05:09 Labs: Abnormal Lab Results - Last 24 Hours (Table) 02/24/21 02/24/21 Range/Units 05:09 05:09 WBC 13.46 H (4.50-10.00) X 10*3/uL MCH 33.3 H (27.0-32.0) pg Immature Gran # 0.16 H (0.00-0.04) X 10*3/uL Neutrophils # 11.52 H (1.80-7.70) X 10*3/uL Eosinophils # 0 L (0.04-0.35) X 10*3/uL Glucose 132 H (70-110) mg/dL Microbiology - Last 24 Hours (Table) 02/22/21 15:00 Stool Culture - Preliminary Stool Assessment and Plan (1) Pancolitis Narrative/Plan: 65-year-old female who presented to the emergency department with severe onset of abdominal pain that began yesterday morning at 5 AM associated with nausea and vomiting. Patient has multiple comorbidities including chronic pain syndrome, history of diverticulosis, external and internal hemorrhoids for which he underwent colonoscopy in December of this year showing diverticulosis with internal and external hemorrhoids, and then underwent hemorrhoidectomy for internal and external hemorrhoids 01/13/[address] Rodriguez. She had several episodes of nausea and vomiting yesterday with constant abdominal pain. She had several episodes of diarrhea, which she states were nonbloody. She also states she has a history of chronic constipation and diarrhea and takes Metamucil nightly. CT of the abdomen and pelvis shows nonspecific and enterocolitis with mild to moderate inflammatory wall thickening and trace reactive pelvic free fluid. No abscess or free air. Severe hepatic steatosis. Currently on Flagyl and Solu-Medrol. Possible etiiology inflammatory, ischemic, or most likely infectious etiology. Current Visit: Yes Status: Acute Code(s): K51.00 - ULCERATIVE (CHRONIC) PANCOLITIS WITHOUT COMPLICATIONS SNOMED Code(s): 394025800 (2) Abdominal pain Current Visit: Yes Status: Acute Code(s): R10.9 - UNSPECIFIED ABDOMINAL PAIN SNOMED Code(s): 52354822 Plan: 1. Continue symptomatic and supportive care 2. Pain medications as needed 3. Unlikely inflammatory process, do not believe steroids would be beneficial 4. Continue Zosyn 5. Continue Flagyl 6. Advance to fullliquid diet and may advance as tolerated 7. CT abdomen and pelvis reviewed 8. No plans for endoscopic evaluation, recommend possible repeat colonoscopy in 6-8 weeks 9. Bentyl as needed 10. C. Difficile toxin negative and stool cultures pending 11. Questran added for stool bulking 12. If patient should have worsening abdominal pain or no improvement, would recommend surgical consult as there will be no gastroenterology services this weekend Thank you for allowing us to participate in the care of the patient, the GI service will sign off, gastroenterology will not be available at the hospital this weekend and if further evaluation by gastroenterology is required the patient will need transfer as per the primary team's discretion. Dr. Glover I agree with the dictator's note, documented as a scribe by Muna Li.
[2021-02-24] MEDS: CHOLESTYRAMINE (WITH SUGAR) 4 GM PACKET PO SCH (18:19)
[2021-02-24 19:55] VITALS: RESP 16
[2021-02-24] MEDS: HYDROCORTISONE 2.5% RECTAL CREAM 30 GM TUBE RECTAL SCH (21:02)
[2021-02-24] MEDS: ZOLPIDEM 5 MG TAB PO PRN (21:09)
[2021-02-25] MEDS: MORPHINE SULFATE 4 MG/ML SYRINGE IV PRN ×2 (00:55→05:59)
[2021-02-25] MEDS: LEVOTHYROXINE 100 MCG TAB PO SCH (06:00)
--- NOTE | 2021-02-25 06:12 | PN ---
PROGRESS NOTE 65-year-old white female, pancolitis, getting better on Flagyl, Zosyn, steroids. Possible discharge home tomorrow. She wants to go home. She is feeling better. Going to advance her diet. Cardiovascular S1, S2. Lungs clear. GI soft. Hematology negative Homans. Psych: Fair mood and affect. ASSESSMENT: Pancolitis, most likely infectious etiology. a colonoscopy a year ago. Continue with outpatient steroids, antibiotics. Possible discharge home in the morning per GI recommendations. Advance diet. PROGNOSIS: Guarded. MMODL / IJN: [id number] /
[2021-02-25] MEDS: PIPERACILLIN-TAZOBACTAM 3.375 GM in SODIUM CHLORIDE 0.9% 100 ML IVPB SCH (07:11)
[2021-02-25] MEDS: DIVALPROEX 250 MG TABLET.DR PO SCH (07:15)
[2021-02-25] MEDS: amLODIPine 5 MG TAB PO SCH (07:16)
[2021-02-25] MEDS: ESTROGENS, CONJUGATED 0.3 MG TAB PO SCH (07:16)
[2021-02-25] MEDS: ATORVASTATIN 20 MG TAB PO SCH (07:16)
[2021-02-25] MEDS: CHOLESTYRAMINE (WITH SUGAR) 4 GM PACKET PO SCH (07:16)
[2021-02-25] MEDS: methylPREDNISolone SOD SUCCI 40 MG/ML 1 ML VIAL IV SCH (07:16)
[2021-02-25 07:58] VITALS: BP 159/78; PULSE 51; TEMP 97.8
[2021-02-25] MEDS: ESCITALOPRAM 20 MG TAB PO SCH (08:21)
[2021-02-25] MEDS: HYDROCORTISONE 2.5% RECTAL CREAM 30 GM TUBE RECTAL SCH (08:21)
[2021-02-25] MEDS ORDERED: metroNIDAZOLE 500 MG TAB PO SCH (09:00)
== END 2021-02-25 09:25 | disposition home or self-care (01) | DRG 387 ==
LOC: EC 13:39 → 6NMEDSUR 16:23 → OBSVTOIN 02-24 11:54
PROVIDERS: ADMIT Family Medicine; ATTEND Family Medicine
DX: K51.00 Ulcerative (chronic) pancolitis without complications (principal); K76.0 Fatty (change of) liver, not elsewhere classified; E03.9 Hypothyroidism, unspecified; Z20.822 Contact with and (suspected) exposure to COVID-19; E78.5 Hyperlipidemia, unspecified; J45.909 Unspecified asthma, uncomplicated; G89.4 Chronic pain syndrome; F32.9 Major depressive disorder, single episode, unspecified; F41.9 Anxiety disorder, unspecified; M79.2 Neuralgia and neuritis, unspecified; K57.90 Diverticulosis of intestine, part unspecified, without perforation or abscess without bleeding; M19.90 Unspecified osteoarthritis, unspecified site; F17.210 Nicotine dependence, cigarettes, uncomplicated; Z79.890 Hormone replacement therapy; Z79.899 Other long term (current) drug therapy; Z90.49 Acquired absence of other specified parts of digestive tract; Z90.710 Acquired absence of both cervix and uterus; Z98.1 Arthrodesis status; Z87.19 Personal history of other diseases of the digestive system; Z87.42 Personal history of other diseases of the female genital tract; Z86.69 Personal history of other diseases of the nervous system and sense organs; Z87.39 Personal history of other diseases of the musculoskeletal system and connective tissue; Z98.890 Other specified postprocedural states; Z91.041 Radiographic dye allergy status; Z80.8 Family history of malignant neoplasm of other organs or systems
CPT/HCPCS: 36415; 74177; 80053; 81001; 83690; 84484; 85025; 85027; 85652; 86140; 87045; 87046; 87324; 87635; 93005; 96361; 96374; 96375; 99285

== ENCOUNTER 2021-05-13 13:40 | Emergency (ER) | payer OTHER ==
[2021-05-13 14:13] VITALS: TEMP 97.7
[2021-05-13] MEDS ORDERED: MORPHINE SULFATE 4 MG/ML SYRINGE IV STA (14:31)
[2021-05-13] MEDS ORDERED: ONDANSETRON 4 MG/2 ML VIAL IVP STA (14:31)
[2021-05-13] MEDS ORDERED: SODIUM CHLORIDE 0.9% 1,000 ML IV STA (14:31)
[2021-05-13 15:23] LABS: Basophils % (A) 0 %; Eosinophils # (A) 0.1 k/uL (0-0.7); Eosinophils % (A) 1 %; HCT 45.9 % (34.0-46.0); HGB 15.9 gm/dL (11.4-16.0); Lymphocytes # (A) 2.1 k/uL (1.0-4.8); Lymphocytes % (A) 15 %; MCH 34.4 pg (25.0-35.0); MCHC 34.7 g/dL (31.0-37.0); MCV 99.2 fL (80.0-100.0); Mean Platelet Volume 7.6; Monocytes # (A) 0.4 k/uL (0-1.0); Monocytes % (A) 3 %; Neutrophils # (A) 11.5 k/uL (1.3-7.7); Neutrophils % (A) 81 %; Platelet Count 384 k/uL (150-450); Poikilocytosis Slight; RBC 4.63 m/uL (3.80-5.40); RDW 13.9 % (11.5-15.5); WBC 14.2 k/uL (3.8-10.6)
[2021-05-13 15:33] LABS: ALT 18 U/L (4-34); AST 26 U/L (14-36); African American GFR (CKD) >90 (>60 ml/min/1.73 sqM); Albumin 4.5 g/dL (3.5-5.0); Alkaline Phosphatase 184 U/L (38-126); Amylase 52 U/L (30-110); Anion Gap 9 mmol/L; Blood Urea Nitrogen 15 mg/dL (7-17); Calcium 10.7 mg/dL (8.4-10.2); Carbon Dioxide 22 mmol/L (22-30); Chloride 110 mmol/L (98-107); Glucose 119 mg/dL (74-99); Lipase 66 U/L (23-300); Non-African American GFR(CKD) >90 (>60 ml/min/1.73 sqM); Potassium 4.2 mmol/L (3.5-5.1); Sodium 141 mmol/L (137-145); Total Bilirubin 0.4 mg/dL (0.2-1.3); Total Protein 7.3 g/dL (6.3-8.2)
[2021-05-13] MEDS ORDERED: methylPREDNISolone SOD SUCCI 125 MG/2 ML VIAL IV STA (15:54)
[2021-05-13] MEDS ORDERED: diphenhydrAMINE 50 MG/ML 1 ML VIAL IVP STA (15:54)
[2021-05-13] MEDS ORDERED: FAMOTIDINE 20 MG/2 ML VIAL IV STA (15:54)
[2021-05-13 16:22] LABS: Appearance,Urine Cloudy (Clear); Bacteria,Urine Few /hpf; Bilirubin,Urine Negative (Negative); Blood,Urine Trace (Negative); Calcium Oxalate Crystals,Urine Moderate /hpf; Color,Urine Yellow; Glucose,Urine (UA) Negative (Negative); Hyaline Casts,Urine 48 /lpf (0-2); Ketones,Urine 1+ (Negative); Leukocyte Esterase,Urine Trace (Negative); Mucus,Urine Many /hpf; Nitrite,Urine Negative (Negative); PH, Urine 5.5 (5.0-8.0); Protein,Urine 1+ (Negative); RBC,Urine 9 /hpf (0-5); Specific Gravity,Urine 1.023 (1.001-1.035); Squamous Epithelial Cell,Urine 13 /hpf (0-4); WBC,Urine 6 /hpf (0-5)
--- NOTE | 2021-05-13 16:46 | CT ---
EXAMINATION TYPE: CT abdomen pelvis w con DATE OF EXAM: 05/13/2021 COMPARISON: 02/21/2021 HISTORY: Abdominal pain, nausea and diarrhea. CT DLP: 776.3 mGycm Automated exposure control for dose reduction was used. CONTRAST: Performed with IV Contrast, patient injected with 100ml mL of Isovue 300. Images obtained from the diaphragm to the floor the pelvis with IV contrast. Lung bases are clear. There is no pleural effusion. Heart size is normal. There is no pericardial eff usion. Liver spleen stomach pancreas appear intact. The bile ducts are not dilated. There are clips f rom cholecystectomy. There is no retroperitoneal adenopathy. Bladder distends smoothly. There is no i nguinal hernia. There is small amount of free fluid in the pelvis. There is hysterectomy. There is no mesenteric edema. There is no ascites or free air. There is no sign of a bowel obstructio n. Appendix is not seen. There is no sign of thickened appendix. The lumbar vertebra have normal alig nment. There is anterior fusion surgery at L4-5. There is no compression fracture. The bony pelvis is intact. The hip joints are intact. IMPRESSION: Tiny amount of fluid in the pelvis which is similar to old exam. There is improvement in the small jose antonio wel distention compared to old exam. No sign of a bowel obstruction. Minimal sigmoid diverticulosis w ithout diverticulitis.
[2021-05-13] MEDS ORDERED: HYDROmorphone 1 MG/ML 1 ML SYRINGE IVP STA (17:15)
[2021-05-13 17:39] VITALS: BP 139/65; PULSE 60; RESP 20
== END 2021-05-13 18:24 | disposition home or self-care (01) ==
LOC: EC 13:40
DX: R10.84 Generalized abdominal pain (principal); R19.7 Diarrhea, unspecified; R11.10 Vomiting, unspecified; J45.909 Unspecified asthma, uncomplicated; G43.909 Migraine, unspecified, not intractable, without status migrainosus; E78.5 Hyperlipidemia, unspecified; E07.9 Disorder of thyroid, unspecified; F17.200 Nicotine dependence, unspecified, uncomplicated; Z88.8 Allergy status to other drugs, medicaments and biological substances; Z79.899 Other long term (current) drug therapy; Z79.890 Hormone replacement therapy; Z90.49 Acquired absence of other specified parts of digestive tract
CPT/HCPCS: 36415; 80053; 82150; 83605; 83690; 85025; 81001; 74177; 99284; 96374; 96375; 96361; J2270; J1200; J2930; J2405; J1170; Q9967

== ENCOUNTER 2021-07-04 22:05 | Inpatient (IN) | payer OTHER ==
[2021-07-04] MEDS ORDERED: SODIUM CHLORIDE 0.9% 1,000 ML IV STA (23:01)
[2021-07-04] MEDS ORDERED: diphenhydrAMINE 50 MG/ML 1 ML VIAL IVP STA (23:01)
[2021-07-04] MEDS ORDERED: ONDANSETRON 4 MG/2 ML VIAL IVP STA (23:01)
[2021-07-04] MEDS ORDERED: KETOROLAC 15 MG/ML 1 ML VIAL IVP STA (23:01)
[2021-07-04] MEDS ORDERED: PANTOPRAZOLE 40 MG/10 ML VIAL IVP STA (23:01)
--- NOTE | 2021-07-04 23:02 | ED ---
Nausea/Vomiting/Diarrhea HPI - General Chief complaint: Nausea/Vomiting/Diarrhea Stated complaint: Stomach Pain,Vomiting Time Seen by Provider: 07/04/21 22:46 Source: patient Mode of arrival: wheelchair Limitations: no limitations - Related Data Home Medications Medication Instructions Recorded Confirmed Zolpidem Tartrate [Ambien Cr] 12.5 mg PO HS 01/22/15 07/04/21 Estrogens, Conjugated [Premarin] 0.3 mg PO DAILY 09/03/16 07/04/21 HYDROcodone/APAP 7.5-325MG [[place] 1 tab PO DAILY PRN 09/03/16 07/04/21 7.5-325] Morphine Sulfate ER [Ms Contin] 15 mg PO BID 09/03/16 07/04/21 Morphine Sulfate ER [Ms Contin] 30 mg PO BID 09/03/16 07/04/21 Escitalopram [Lexapro] 20 mg PO HS 06/08/19 07/04/21 Atorvastatin [Lipitor] 20 mg PO HS 12/19/20 07/04/21 Levothyroxine Sodium [Synthroid] 100 mcg PO DAILY 12/19/20 07/04/21 Divalproex Sodium [Depakote] 125 mg PO DAILY 05/13/21 07/04/21 Linaclotide [Linzess] 145 mcg PO DAILY 07/04/21 07/04/21 Previous Rx's Medication Instructions Recorded Dicyclomine [Bentyl] 20 mg PO TID PRN #20 tablet 05/13/21 Ondansetron [Zofran ODT] 4 mg PO Q8HR PRN #15 tab 05/13/21 Allergies Allergy/AdvReac Type Severity Reaction Status Date / Time Iodinated Contrast Media Allergy Rash/Hives/ Verified 07/04/21 23:20 [Iodinated Contrast Media - Swelling Oral and] Review of Systems ROS Statement: Those systems with pertinent positive or pertinent negative responses have been documented in the HPI. ROS Other: All systems not noted in ROS Statement are negative. Past Medical History Past Medical History: Asthma, Hyperlipidemia, Osteoarthritis (OA), Thyroid Disorder Additional Past Medical History / Comment(s): takes depakote for migraine headaches, hemmorhoids, nerve pain, diverticulitus History of Any Multi-Drug Resistant Organisms: None Reported Past Surgical History: Back Surgery, Cholecystectomy, Hysterectomy, Orthopedic Surgery Additional Past Surgical History / Comment(s): back surg. x2, lumbar fusion, left shoulder rotator cuff Past Anesthesia/Blood Transfusion Reactions: Postoperative Nausea & Vomiting (PONV) Past Psychological History: Anxiety, Depression Smoking Status: Current some day smoker Past Alcohol Use History: None Reported Past Drug Use History: None Reported - Past Family History Mother Family Medical History: Cancer Additional Family Medical History / Comment(s): brain General Exam Limitations: no limitations Course Vital Signs 07/04/21 07/05/21 22:25 00:02 Temperature 98.1 F Pulse Rate 64 56 L Respiratory 22 18 Rate Blood Pressure 104/71 140/57 O2 Sat by Pulse 97 100 Oximetry Medical Decision Making - Lab Data Result diagrams: 07/04/21 23:42 07/04/21 23:42 Lab Results 07/04/21 07/04/21 07/04/21 Range/Units 23:42 23:42 23:42 WBC 16.0 H (3.8-10.6) k/uL RBC 5.49 H (3.80-5.40) m/uL Hgb 18.2 H (11.4-16.0) gm/dL Hct 53.3 H (34.0-46.0) % MCV 97.0 (80.0-100.0) fL MCH 33.1 (25.0-35.0) pg MCHC 34.1 (31.0-37.0) g/dL RDW 13.0 (11.5-15.5) % Plt Count 404 (150-450) k/uL MPV 7.5 Neutrophils % 85 % Lymphocytes % 12 % Monocytes % 2 % Eosinophils % 1 % Basophils % 0 % Neutrophils # 13.6 H (1.3-7.7) k/uL Lymphocytes # 1.9 (1.0-4.8) k/uL Monocytes # 0.3 (0-1.0) k/uL Eosinophils # 0.1 (0-0.7) k/uL Basophils # 0.1 (0-0.2) k/uL PT 9.9 (9.0-12.0) sec INR 0.9 (<1.2) APTT 24.2 (22.0-30.0) sec Sodium 142 (137-145) mmol/L Potassium 4.4 (3.5-5.1) mmol/L Chloride 105 (98-107) mmol/L Carbon Dioxide 17 L (22-30) mmol/L Anion Gap 20 mmol/L BUN 16 (7-17) mg/dL Creatinine 1.20 H (0.52-1.04) mg/dL Est GFR (CKD-EPI)AfAm 55 (>60 ml/min/1.73 sqM) Est GFR (CKD-EPI)NonAf 48 (>60 ml/min/1.73 sqM) Glucose 163 H (74-99) mg/dL Plasma Lactic Acid Stephen (0.7-2.0) mmol/L Calcium 11.4 H (8.4-10.2) mg/dL Phosphorus 4.6 H (2.5-4.5) mg/dL Magnesium 2.0 (1.6-2.3) mg/dL Total Bilirubin 0.7 (0.2-1.3) mg/dL AST 29 (14-36) U/L ALT 20 (4-34) U/L Alkaline Phosphatase 210 H (38-126) U/L Troponin I (0.000-0.034) ng/mL Total Protein 8.8 H (6.3-8.2) g/dL Albumin 5.2 H (3.5-5.0) g/dL 07/04/21 07/04/21 Range/Units 23:42 23:42 WBC (3.8-10.6) k/uL RBC (3.80-5.40) m/uL Hgb (11.4-16.0) gm/dL Hct (34.0-46.0) % MCV (80.0-100.0) fL MCH (25.0-35.0) pg MCHC (31.0-37.0) g/dL RDW (11.5-15.5) % Plt Count (150-450) k/uL MPV Neutrophils % % Lymphocytes % % Monocytes % % Eosinophils % % Basophils % % Neutrophils # (1.3-7.7) k/uL Lymphocytes # (1.0-4.8) k/uL Monocytes # (0-1.0) k/uL Eosinophils # (0-0.7) k/uL Basophils # (0-0.2) k/uL PT (9.0-12.0) sec INR (<1.2) APTT (22.0-30.0) sec Sodium (137-145) mmol/L Potassium (3.5-5.1) mmol/L Chloride (98-107) mmol/L Carbon Dioxide (22-30) mmol/L Anion Gap mmol/L BUN (7-17) mg/dL Creatinine (0.52-1.04) mg/dL Est GFR (CKD-EPI)AfAm (>60 ml/min/1.73 sqM) Est GFR (CKD-EPI)NonAf (>60 ml/min/1.73 sqM) Glucose (74-99) mg/dL Plasma Lactic Acid Stephen 3.1 H* (0.7-2.0) mmol/L Calcium (8.4-10.2) mg/dL Phosphorus (2.5-4.5) mg/dL Magnesium (1.6-2.3) mg/dL Total Bilirubin (0.2-1.3) mg/dL AST (14-36) U/L ALT (4-34) U/L Alkaline Phosphatase (38-126) U/L Troponin I <0.012 (0.000-0.034) ng/mL Total Protein (6.3-8.2) g/dL Albumin (3.5-5.0) g/dL Disposition Clinical Impression: Pancolitis, Colitis, Dehydration, Gastroenteritis Disposition: ADMITTED IP TO THIS [facility] Condition: Serious Is patient prescribed a controlled substance at d/c from ED?: No Referrals: Isidro Diamond MD [Primary Care Provider] - 1-2 days
[2021-07-05] LABS: Basophils # (A) 0.1 k/uL (0-0.2); Basophils % (A) 0 %; Eosinophils # (A) 0.1 k/uL (0-0.7); Eosinophils % (A) 1 %; HCT 53.3 % (34.0-46.0); HGB 18.2 gm/dL (11.4-16.0); INR 0.9 (<1.2); Lymphocytes # (A) 1.9 k/uL (1.0-4.8); Lymphocytes % (A) 12 %; MCH 33.1 pg (25.0-35.0); MCHC 34.1 g/dL (31.0-37.0); Mean Platelet Volume 7.5; Monocytes # (A) 0.3 k/uL (0-1.0); Monocytes % (A) 2 %; Neutrophils # (A) 13.6 k/uL (1.3-7.7); Neutrophils % (A) 85 %; Platelet Count 404 k/uL (150-450); RBC 5.49 m/uL (3.80-5.40)
[2021-07-05 00:01] LABS: Partial Thromboplastin Time 24.2 sec (22.0-30.0); Prothrombin Time 9.9 sec (9.0-12.0)
[2021-07-05 00:02] LABS: Albumin 5.2 g/dL (3.5-5.0); Calcium 11.4 mg/dL (8.4-10.2); Phosphorus 4.6 mg/dL (2.5-4.5); Potassium 4.4 mmol/L (3.5-5.1); Total Bilirubin 0.7 mg/dL (0.2-1.3); Total Protein 8.8 g/dL (6.3-8.2)
[2021-07-05] MEDS ORDERED: NALOXONE 0.4 MG/ML 1 ML VIAL IV PRN (01:23)
[2021-07-05] MEDS ORDERED: SODIUM CHLORIDE 0.9% 500 ML 500 ML IV STA (01:25)
[2021-07-05] MEDS ORDERED: SODIUM CHLORIDE 0.9% 1,000 ML IV STA ×2 (01:25)
--- NOTE | 2021-07-05 02:31 | CT ---
EXAMINATION TYPE: CT abdomen pelvis wo con DATE OF EXAM: 07/05/2021 COMPARISON: 05/13/2021 HISTORY: n&V&D CT DLP: 673.6 mGycm Automated exposure control for dose reduction was used. Images obtained from the diaphragm to the floor the pelvis without contrast. Lung bases are clear of consolidation. There is no pleural effusion. There is minimal subpleural inte rstitial density at the lung bases. Heart size is normal. There is no pericardial effusion. There are clips from cholecystectomy. Liver shows no focal defect. Bile ducts are nondilated. There i s small calcified splenic granuloma. There is no pancreatic mass. Stomach is intact. There is no adrenal mass. Kidneys show normal size and contour. There is 3 mm calculus interpolar rig ht kidney. There is no hydronephrosis. Ureters are not dilated. There is no retroperitoneal adenopath y. Bladder distends smoothly. There is no inguinal hernia. There is no significant free fluid in the pelvis. There is a few sigmoid diverticula. There is no diverticulitis. Appendix is not seen. There i s no sign of thickened appendix. There is no mesenteric edema. There is no ascites or free air. There is no evidence of bowel obstruct ion. Abdominal aorta is atheromatous. The lumbar vertebra have fairly normal alignment. There is anterior fusion surgery at L4-5. Posterior elements are intact. There is no compression fracture. There is no evidence of a pelvic fracture. Ex am limited slightly by motion in the pelvis. IMPRESSION: No acute abnormality of the abdomen pelvis. Nonobstructing right renal calculus. Mild sigmoid diverti culosis. No adverse change compared to old exam. There is essentially complete clearing of the small amount of free fluid in the pelvis compared to old exam.
[2021-07-05] MEDS: MORPHINE SULFATE 4 MG/ML SYRINGE IV PRN ×4 (02:39→20:26)
[2021-07-05] MEDS ORDERED: ZOLPIDEM 5 MG TAB PO PRN (04:49)
[2021-07-05 05:11] LABS: Acetaminophen <10.0 ug/mL; Alcohol <10 mg/dL; Salicylate <1.0 mg/dL
[2021-07-05] MEDS: PANTOPRAZOLE 40 MG/10 ML VIAL IV SCH (09:23)
[2021-07-05] MEDS: ONDANSETRON 4 MG/2 ML VIAL IVP PRN (16:05)
[2021-07-05] MEDS ORDERED: ONDANSETRON ODT 4 MG TAB PO PRN (17:02)
[2021-07-05] MEDS: methylPREDNISolone SOD SUCCI 40 MG/ML 1 ML VIAL IV SCH ×2 (18:27→23:17)
[2021-07-05] MEDS: SODIUM CHLORIDE 0.9% 1,000 ML IV SCH (18:27)
[2021-07-05] MEDS: metroNIDAZOLE-NS PMX 500 MG in SALINE 1 100ML.BAG IVPB SCH ×2 (18:27→23:17)
[2021-07-05] MEDS: HYDROcodone/APAP 7.5-325MG 1 EACH TAB PO PRN (18:33)
[2021-07-05] MEDS: ATORVASTATIN 20 MG TAB PO SCH (20:26)
[2021-07-05] MEDS: ZOLPIDEM 5 MG TAB PO SCH (20:26)
[2021-07-05] MEDS: ESCITALOPRAM 20 MG TAB PO SCH (20:50)
[2021-07-05] MEDS: DICYCLOMINE 20 MG TAB PO PRN (23:17)
[2021-07-06] MEDS: MORPHINE SULFATE 4 MG/ML SYRINGE IV PRN ×5 (00:40→19:54)
[2021-07-06 04:28] LABS: Appearance,Urine Clear (Clear); Bilirubin,Urine Negative (Negative); Blood,Urine Negative (Negative); Color,Urine Light Yellow; Glucose,Urine (UA) Negative (Negative); Ketones,Urine Trace (Negative); Leukocyte Esterase,Urine Negative (Negative); Nitrite,Urine Negative (Negative); PH, Urine 5.5 (5.0-8.0); Protein,Urine Negative (Negative); Urobilinogen,Urine <2.0 mg/dL (<2.0)
[2021-07-06] MEDS: LEVOTHYROXINE 100 MCG TAB PO SCH (05:19)
[2021-07-06] MEDS: SODIUM CHLORIDE 0.9% 1,000 ML IV SCH ×2 (05:20→19:03)
[2021-07-06 06:33] LABS: Basophils % (A) 0 %; Eosinophils % (A) 0 %; HCT 43.6 % (34.0-46.0); Lymphocytes # (A) 1.3 k/uL (1.0-4.8); Lymphocytes % (A) 16 %; MCH 31.8 pg (25.0-35.0); MCHC 31.6 g/dL (31.0-37.0); MCV 100.6 fL (80.0-100.0); Mean Platelet Volume 7.8; Monocytes # (A) 0.1 k/uL (0-1.0); Monocytes % (A) 1 %; Neutrophils # (A) 6.5 k/uL (1.3-7.7); Neutrophils % (A) 82 %; Platelet Count 272 k/uL (150-450); RBC 4.33 m/uL (3.80-5.40); RDW 12.5 % (11.5-15.5)
[2021-07-06 06:40] LABS: ALT 17 U/L (4-34); AST 29 U/L (14-36); African American GFR (CKD) >90 (>60 ml/min/1.73 sqM); Albumin 3.7 g/dL (3.5-5.0); Albumin/Globulin Ratio 1.3; Alkaline Phosphatase 115 U/L (38-126); Anion Gap 8 mmol/L; Blood Urea Nitrogen 13 mg/dL (7-17); Calcium 9.5 mg/dL (8.4-10.2); Carbon Dioxide 19 mmol/L (22-30); Chloride 111 mmol/L (98-107); Globulin 2.9 g/dL; Glucose 180 mg/dL (74-99); Magnesium 1.8 mg/dL (1.6-2.3); Non-African American GFR(CKD) >90 (>60 ml/min/1.73 sqM); Phosphorus 2.3 mg/dL (2.5-4.5); Potassium 4.4 mmol/L (3.5-5.1); Sodium 138 mmol/L (137-145); Total Bilirubin 0.3 mg/dL (0.2-1.3); Total Protein 6.6 g/dL (6.3-8.2)
[2021-07-06 06:54] LABS: HGB 13.8 gm/dL (11.4-16.0)
[2021-07-06] MEDS: DIVALPROEX SPRINKLE 125 MG CAP.SPRINK PO SCH (08:32)
[2021-07-06] MEDS: PANTOPRAZOLE 40 MG/10 ML VIAL IV SCH (08:33)
[2021-07-06] MEDS: methylPREDNISolone SOD SUCCI 40 MG/ML 1 ML VIAL IV SCH ×2 (08:33→15:10)
[2021-07-06] MEDS: HYDROcodone/APAP 7.5-325MG 1 EACH TAB PO PRN (08:33)
[2021-07-06] MEDS: metroNIDAZOLE-NS PMX 500 MG in SALINE 1 100ML.BAG IVPB SCH ×2 (08:35→15:09)
[2021-07-06] MEDS: DICYCLOMINE 20 MG TAB PO PRN (08:47)
[2021-07-06] MEDS: ESTROGENS, CONJUGATED 0.3 MG TAB PO SCH (08:47)
--- NOTE | 2021-07-06 08:49 | HP ---
HISTORY AND PHYSICAL This is a 66-year-old white female admitted with acute abdominal pain, nausea, vomiting, diarrhea, lactic acidosis, severe, hypokalemia and dehydration, history of colitis. Admitted for worsening colitis. HOME MEDICINES: Home medicines include Zolpidem 12.5 at bedtime, Premarin 0.3 mg daily, [place] 7.5 daily, MS Contin 30 mg b.i.d. and 15 b.i.d., Lexapro 20 mg daily, Lipitor 20 mg daily, Synthroid 100 mcg daily, Depakote 125 mg daily, Linzess 145 mcg daily. ALLERGIES: IODINE. REVIEW OF SYSTEMS: Fourteen-point review of systems otherwise negative. PAST MEDICAL HISTORY: Asthma, dyslipidemia, osteoarthritis, hypothyroidism, migraines, hemorrhoids, diverticulitis. SURGERIES: Back surgery, cholecystectomy, hysterectomy, orthopedic surgery. FAMILY HISTORY: Mother with cancer of the brain. PHYSICAL EXAMINATION: Temperature 98.1, pulse 50s to 60s, respiratory rate 18 to 22, blood pressures 104 to 140s over 50s to 70s, O2 97 to 100. LABS: White count is 16.3, hemoglobin is 18.2, BUN 16, creatinine 1.2. Sodium 142, potassium 4.4, BUN 16, creatinine 1.2. Lactic acid is 3.1. ASSESSMENT: 1. Pancolitis. 2. Dehydration. 3. Gastroenteritis. Start Flagyl, Solu-Medrol. Rehydrate. Potassium, magnesium. Rehydration. Follow up in next 24 to 48 hours. MMODL / IJN: [id number] /
--- NOTE | 2021-07-06 12:15 | P.GSCN ---
History of Present Illness Consult date: 07/06/21 History of present illness: CHIEF COMPLAINT: Abdominal pain HISTORY OF PRESENT ILLNESS: This is a 66-year-old female with a known history of colitis. She has issues with chronic constipation and diarrhea. She is on chronic pain medication. Patient presents to emergency room with complaints of diarrhea, vomiting and upset stomach that started 3 days ago. Patient reports that she was unable to keep any food, liquids or medications down. She came into the ER for further evaluation and treatment. She was diagnosed with colitis. Medicine service has placed her on steroids and Flagyl. She reports no blood in her stools or black stools. She did have a soft bowel movement last night. She's had no further vomiting. And she is currently tolerating a soft diet. Computed tomography scan abdomen and pelvis showed no acute abnormality. She had colonoscopy in December 2020 with evidence of diverticulosis and internal/external hemorrhoids. No evidence of active bleeding at that time. It was assumed that the hemorrhoids will contribute to rectal bleeding. Patient did undergo a hemorrhoidectomy on 01/13/2021. Patient admitted to the hospital in February with pancolitis. At that time GI service recommended repeat colonoscopy in 6-8 weeks. PAST MEDICAL HISTORY: Constipation, diarrhea, asthma, hyperlipidemia, osteoarthritis, thyroid disorder, colitis, diverticulosis, migraines PAST SURGICAL HISTORY: Cholecystectomy, hemorrhoidectomy, hysterectomy, back surgery MEDICATIONS: See list. ALLERGIES: See list. SOCIAL HISTORY: No illicit drug use. REVIEW OF SYSTEMS: CONSTITUTIONAL: Denies fever or chills. HEENT: Denies blurred vision, vision changes, or eye pain. Denies hemoptysis CARDIOVASCULAR: Denies chest pain or pressure. RESPIRATORY: No shortness of breath. GASTROINTESTINAL: See HPI for pertinent findings HEMATOLOGIC: Denies bleeding disorders. GENITOURINARY: Denies any blood in urine or increased urinary frequency. SKIN: Denies pruitis. Denies rash. PHYSICAL EXAM: VITAL SIGNS: Reviewed GENERAL: Well-developed in no acute distress. HEENT: No sclera icterus. Extraocular movements grossly intact. Moist buccal mucosa. Head is atraumatic, normocephalic. No nasal drainage. ABDOMEN: Soft. Nondistended. Diffuse tenderness NEUROLOGIC: Alert and oriented. Cranial nerves II through XII grossly intact. LABORATORY DATA: WBC 16 down to 8 hemoglobin 18.2 down to 13.8 platelets 272 INR 0.9 Sodium 138 potassium 4.4 CO2 19 BUN 13 creatinine 0.53 lactic acid 3.1 down to 1.9 Magnesium 1.8 LFTs normal IMAGING: computed tomography scan of pelvis no acute abnormality of the abdomen or pelvis. Nonobstructing right renal calculus. Mild sigmoid diverticulosis. No adverse change compared to old exam. There is essentially complete clearing of this small amount of free fluid in the pelvis compared to old exam ASSESSMENT: 1. Abdominal pain with vomiting and diarrhea possibly secondary to colitis or gastroenteritis 2. Prior history of colitis. Patient had episode of colitis in February and was due for a repeat colonoscopy 6-8 weeks from then. She is past due for her colonoscopy PLAN: -Continue supportive care -Continue IV fluids -plan for colonoscopy on 07/10/[address] Rodriguez Thank you for this consultation Physician Dry Kiln Feeder note has been reviewed by physician. Signing provider agrees with the documented findings, assessment, and plan of care. Past Medical History Past Medical History: Asthma, Hyperlipidemia, Osteoarthritis (OA), Thyroid Disorder Additional Past Medical History / Comment(s): takes depakote for migraine headaches, nerve pain, diverticulitus History of Any Multi-Drug Resistant Organisms: None Reported Past Surgical History: Back Surgery, Cholecystectomy, Hysterectomy, Orthopedic Surgery Additional Past Surgical History / Comment(s): back surg. x2, lumbar fusion, left shoulder rotator cuff, hemorrhoid surgery, sinus surgery Past Anesthesia/Blood Transfusion Reactions: Postoperative Nausea & Vomiting (PONV) Past Psychological History: Anxiety, Depression Smoking Status: Current every day smoker Past Alcohol Use History: None Reported Additional Past Alcohol Use History / Comment(s): smokes daily Past Drug Use History: None Reported - Past Family History Mother Family Medical History: Cancer Additional Family Medical History / Comment(s): brain Medications and Allergies Home Medications Medication Instructions Recorded Confirmed Type Zolpidem Tartrate [Ambien Cr] 12.5 mg PO HS 01/22/15 07/04/21 History Estrogens, Conjugated [Premarin] 0.3 mg PO DAILY 09/03/16 07/04/21 History HYDROcodone/APAP 7.5-325MG [[place] 1 tab PO DAILY PRN 09/03/16 07/04/21 History 7.5-325] Morphine Sulfate ER [Ms Contin] 15 mg PO BID 09/03/16 07/04/21 History Morphine Sulfate ER [Ms Contin] 30 mg PO BID 09/03/16 07/04/21 History Escitalopram [Lexapro] 20 mg PO HS 06/08/19 07/04/21 History Atorvastatin [Lipitor] 20 mg PO HS 12/19/20 07/04/21 History Levothyroxine Sodium [Synthroid] 100 mcg PO DAILY 12/19/20 07/04/21 History Dicyclomine [Bentyl] 20 mg PO TID PRN #20 tablet 05/13/21 07/04/21 Rx Divalproex Sodium [Depakote] 125 mg PO DAILY 05/13/21 07/04/21 History Ondansetron [Zofran ODT] 4 mg PO Q8HR PRN #15 tab 05/13/21 07/04/21 Rx Linaclotide [Linzess] 145 mcg PO DAILY 07/04/21 07/04/21 History Allergies Allergy/AdvReac Type Severity Reaction Status Date / Time Iodinated Contrast Media Allergy Rash/Hives/ Verified 07/04/21 23:20 [Iodinated Contrast Media - Swelling Oral and] Surgical - Exam Vital Signs Temp Pulse Resp BP Pulse Ox 98.1 F 64 22 104/71 97 07/04/21 22:25 07/04/21 22:25 07/04/21 22:25 07/04/21 22:25 07/04/21 22:25 Results - Labs 07/06/21 06:01 07/06/21 06:01 Abnormal Lab Results - Last 24 Hours (Table) 07/04/21 07/06/21 07/06/21 Range/Units 04:05 06:01 06:01 MCV 100.6 H (80.0-100.0) fL Chloride 111 H (98-107) mmol/L Carbon Dioxide 19 L (22-30) mmol/L Glucose 180 H (74-99) mg/dL Phosphorus 2.3 L (2.5-4.5) mg/dL Urine Ketones Trace H (Negative) Diabetes panel 07/06/21 Range/Units 06:01 Sodium 138 (137-145) mmol/L Potassium 4.4 (3.5-5.1) mmol/L Chloride 111 H (98-107) mmol/L Carbon Dioxide 19 L (22-30) mmol/L BUN 13 (7-17) mg/dL Creatinine 0.53 (0.52-1.04) mg/dL Glucose 180 H (74-99) mg/dL Calcium 9.5 (8.4-10.2) mg/dL AST 29 (14-36) U/L ALT 17 (4-34) U/L Alkaline Phosphatase 115 (38-126) U/L Total Protein 6.6 (6.3-8.2) g/dL Albumin 3.7 (3.5-5.0) g/dL Calcium panel 07/06/21 Range/Units 06:01 Calcium 9.5 (8.4-10.2) mg/dL Phosphorus 2.3 L (2.5-4.5) mg/dL Albumin 3.7 (3.5-5.0) g/dL Pituitary panel 07/06/21 Range/Units 06:01 Sodium 138 (137-145) mmol/L Potassium 4.4 (3.5-5.1) mmol/L Chloride 111 H (98-107) mmol/L Carbon Dioxide 19 L (22-30) mmol/L BUN 13 (7-17) mg/dL Creatinine 0.53 (0.52-1.04) mg/dL Glucose 180 H (74-99) mg/dL Calcium 9.5 (8.4-10.2) mg/dL Adrenal panel 07/06/21 Range/Units 06:01 Sodium 138 (137-145) mmol/L Potassium 4.4 (3.5-5.1) mmol/L Chloride 111 H (98-107) mmol/L Carbon Dioxide 19 L (22-30) mmol/L BUN 13 (7-17) mg/dL Creatinine 0.53 (0.52-1.04) mg/dL Glucose 180 H (74-99) mg/dL Calcium 9.5 (8.4-10.2) mg/dL Total Bilirubin 0.3 (0.2-1.3) mg/dL AST 29 (14-36) U/L ALT 17 (4-34) U/L Alkaline Phosphatase 115 (38-126) U/L Total Protein 6.6 (6.3-8.2) g/dL Albumin 3.7 (3.5-5.0) g/dL
[2021-07-06] MEDS: ONDANSETRON 4 MG/2 ML VIAL IVP PRN (19:58)
--- NOTE | 2021-07-06 22:34 | P.PN ---
Progress Note - Text Progress Note Date: 07/06/21 Presenting complaint: Nausea vomiting diarrhea Interval history: Patient admitted with nausea vomiting diarrhea. Also having abdominal pain. 07/06/2021: Sitting up in bed. Diffuse abdominal pain. No nausea vomiting. Did tolerate a soft diet. No bowel movements today. Dr. Rodriguez is planning for a colonoscope on Saturday. No fever no chills. Review of systems: Was done for constitutional, cardiovascular, GI, pulmonary. relevant finding as above Active Medications Hydrocodone Bitart/Acetaminophen (Hydrocodone/Apap 7.5-325mg 1 Each Tab) 1 each PO DAILY PRN PRN Reason: Pain Last Admin: 07/06/21 08:33 Dose: 1 each Documented by: Atorvastatin Calcium (Atorvastatin 20 Mg Tab) 20 mg PO [facility] Last Admin: 07/05/21 20:26 Dose: 20 mg Documented by: Dicyclomine HCl (Dicyclomine 20 Mg Tab) 20 mg PO QID [facility] Divalproex Sodium (Divalproex Sprinkle 125 Mg Cap.Sprink) 125 mg PO DAILY [facility] Last Admin: 07/06/21 08:32 Dose: 125 mg Documented by: Escitalopram Oxalate (Escitalopram 20 Mg Tab) 20 mg PO HS [facility] Last Admin: 07/05/21 20:50 Dose: 20 mg Documented by: Estrogens Conjugated (Estrogens, Conjugated 0.3 Mg Tab) 0.3 mg PO DAILY [facility] Last Admin: 07/06/21 08:47 Dose: 0.3 mg Documented by: Sodium Chloride (Saline 0.9%) 1,000 mls @ 75 mls/hr IV .[id number] [facility] Last Admin: 07/06/21 19:03 Dose: 75 mls/hr Documented by: Metronidazole 500 mg/ IV (Solution) 100 mls @ 100 mls/hr IVPB Q8HR [facility] Last Admin: 07/06/21 15:09 Dose: 100 mls/hr Documented by: Levothyroxine Sodium (Levothyroxine 100 Mcg Tab) 100 mcg PO 0630 [facility] Last Admin: 07/06/21 05:19 Dose: 100 mcg Documented by: Morphine Sulfate (Morphine Sulfate 4 Mg/Ml Syringe) 4 mg IV Q4HR PRN PRN Reason: Severe Pain Last Admin: 07/06/21 19:54 Dose: 4 mg Documented by: Naloxone HCl (Naloxone 0.4 Mg/Ml 1 Ml Vial) 0.2 mg IV Q2M PRN PRN Reason: Opioid Reversal Ondansetron HCl (Ondansetron 4 Mg/2 Ml Vial) 4 mg IVP Q8HR PRN PRN Reason: Nausea And Vomiting Last Admin: 07/06/21 19:58 Dose: 4 mg Documented by: Ondansetron HCl (Ondansetron Odt 4 Mg Tab) 4 mg PO Q8HR PRN PRN Reason: Nausea Pantoprazole Sodium (Pantoprazole 40 Mg Tablet) 40 mg PO AC-BID SUMEET Prednisone (Prednisone 20 Mg Tab) 40 mg PO DAILY SUMEET Zolpidem Tartrate (Zolpidem 5 Mg Tab) 5 mg PO HS SUMEET Last Admin: 07/05/21 20:26 Dose: 5 mg Documented by: On examination: VITAL SIGNS: [97.4, 52, 17, 143.77, 91% on room air] GENERAL APPEARANCE: Reclining bed, awake, slightly anxious HEENT: Normal external appearance of nose and ear. Oral cavity normal EYES: Pupils equal. Conjunctiva normal. NECK: JVD not raised. Mass not palpable. RESPIRATORY: Respiratory effort normal. Lungs clear to auscultation. CARDIOVASCULAR: First and second sounds normal. No edema. ABDOMEN: Soft. Central tenderness, no guarding rigidity Liver and spleen not palpable. No tenderness. No mass palpable. PSYCHIATRY: Alert and oriented x3. Mood and affect anxious Investigations: White count 8 hemoglobin 13.8 platelets 272 potassium 4.4 BUN 13 creatinine 0.53 Computed tomography scan of the abdomen and pelvis without contrast: No acute abnormality of the abdomen pelvis. Nonobstructing right renal calculus. Sigmoid diverticulosis. Assessment and plan: -Patient has episode of nausea vomiting diarrhea for which she presented. Possible acute gastroenteritis. Patient still having diffuse abdominal pain. No fever no chills. Patient been on IV Flagyl and IV Solu-Medrol. Will change to by mouth predn isone. Patient tolerating soft bland diet. -Bowel spasm Menstrual 20 mg 4 times a day -Acute kidney injury, prerenal: Better Creatinine improved from 1.2 down to 0.53. Cut back IV fluids -Metabolic acidosis from nausea vomiting diarrhea Add sodium bicarbonate -Chronic insomnia from multiple medical problems Ambien 12.5 by mouth daily at bedtime -Chronic pain syndrome MS Contin 45 mg by mouth twice a day -Depression not otherwise specified Lexapro 20 mg daily at bedtime -Hyperlipidemia Lipitor 20 mg daily at bedtime Change IV Solu-Medrol to by mouth prednisone. Patient 13 a soft diet. Continue other medications. Change Protonix to by mouth. Increase activity. Discussed with the patient.
[2021-07-06] MEDS: SODIUM BICARBONATE TAB 650 MG TAB PO SCH (22:38)
[2021-07-06] MEDS: PANTOPRAZOLE 40 MG TABLET PO SCH (22:38)
[2021-07-06] MEDS: DICYCLOMINE 20 MG TAB PO SCH (22:38)
[2021-07-06] MEDS: ESCITALOPRAM 20 MG TAB PO SCH (22:40)
[2021-07-06] MEDS: ATORVASTATIN 20 MG TAB PO SCH (22:40)
[2021-07-06] MEDS: ZOLPIDEM 5 MG TAB PO SCH (22:41)
[2021-07-07] MEDS: metroNIDAZOLE-NS PMX 500 MG in SALINE 1 100ML.BAG IVPB SCH ×2 (00:06→08:14)
[2021-07-07] MEDS: MORPHINE SULFATE 4 MG/ML SYRINGE IV PRN ×5 (00:07→20:48)
[2021-07-07] MEDS: LEVOTHYROXINE 100 MCG TAB PO SCH (05:29)
[2021-07-07] MEDS: SODIUM CHLORIDE 0.9% 1,000 ML IV SCH (05:29)
[2021-07-07] MEDS: ESTROGENS, CONJUGATED 0.3 MG TAB PO SCH (08:14)
[2021-07-07] MEDS: DICYCLOMINE 20 MG TAB PO SCH ×4 (08:14→20:48)
[2021-07-07] MEDS: SODIUM BICARBONATE TAB 650 MG TAB PO SCH ×3 (08:14→20:47)
[2021-07-07] MEDS: predniSONE 20 MG TAB PO SCH (08:14)
[2021-07-07] MEDS: PANTOPRAZOLE 40 MG TABLET PO SCH ×2 (08:14→16:38)
[2021-07-07] MEDS: DIVALPROEX SPRINKLE 125 MG CAP.SPRINK PO SCH (08:27)
--- NOTE | 2021-07-07 13:22 | P.PN ---
Subjective Progress Note Date: 07/07/21 CHIEF COMPLAINT: Abdominal pain HISTORY OF PRESENT ILLNESS: Patient still complaining of diffuse abdominal pain. She's had no further vomiting. She still required medication for nausea. Her last bowel movement was yesterday which was soft and brown. She's had no further diarrhea. She has been up and ambulating. She is tolerating diet. Afebrile. WBC has normalized to 8.0. Labs from yesterday PHYSICAL EXAM: VITAL SIGNS: Reviewed. GENERAL: Well-developed in no acute distress. HEENT: No sclera icterus. Extraocular movements grossly intact. Moist buccal mucosa. Head is atraumatic, normocephalic. ABDOMEN: Soft. Nondistended. Diffuse tenderness NEUROLOGIC: Alert and oriented. Cranial nerves II through XII grossly intact. ASSESSMENT: 1. Abdominal pain with vomiting and diarrhea possibly secondary to colitis or gastroenteritis 2. Prior history of colitis. Patient had episode of colitis in February and was due for a repeat colonoscopy 6-8 weeks from then. She is past due for her col onoscopy PLAN: -Colonoscopy scheduled for 07/10/[address] torres -Continue supportive care -Continue IV fluids -Continue regular diet -Encourage patient to ambulate Physician Brand Analyst note has been reviewed by physician. Signing provider agrees with the documented findings, assessment, and plan of care. Objective - Vital Signs Vital signs: Vital Signs Temp 97.7 F 07/07/21 06:56 Pulse 54 L 07/07/21 06:56 Resp 18 07/07/21 06:56 BP 145/58 07/07/21 06:56 Pulse Ox 97 07/07/21 04:20 Intake & Output 07/06/21 07/07/21 07/07/21 18:59 06:59 18:59 Intake Total 1100 Balance 1100 Intake: Intake, IV Titration 1100 Amount Sodium Chloride 0.9% 1, 900 000 ml @ 75 mls/hr IV . [id number] SUMEET Rx#:[id number] metroNIDAZOLE-NS PMX 500 200 mg In Saline 1 100ml.bag @ 100 mls/hr IVPB Q8HR SUMEET Rx#:[id number] Other: Voiding Method Toilet Toilet # Voids 2 3 - Labs CBC & Chem 7: 07/06/21 06:01 07/06/21 06:01
--- NOTE | 2021-07-07 14:34 | P.PN ---
Progress Note - Text Progress Note Date: 07/07/21 Presenting complaint: Nausea vomiting diarrhea Interval history: Patient admitted with nausea vomiting diarrhea. Also having abdominal pain. 07/06/2021: Sitting up in bed. Diffuse abdominal pain. No nausea vomiting. Did tolerate a soft diet. No bowel movements today. Dr. Rodriguez is planning for a colonoscope on Saturday. No fever no chills. July 07: 2020 handout pain better. Tolerating diet. No fever no chills. Up to the bathroom. Review of systems: Was done for constitutional, cardiovascular, GI, pulmonary. relevant finding as above Active Medications Hydrocodone Bitart/Acetaminophen (Hydrocodone/Apap 7.5-325mg 1 Each Tab) 1 each PO DAILY PRN PRN Reason: Pain Last Admin: 07/06/21 08:33 Dose: 1 each Documented by: Atorvastatin Calcium (Atorvastatin 20 Mg Tab) 20 mg PO [facility] Last Admin: 07/06/21 22:40 Dose: 20 mg Documented by: Dicyclomine HCl (Dicyclomine 20 Mg Tab) 20 mg PO QID [facility] Last Admin: 07/07/21 12:44 Dose: 20 mg Documented by: Divalproex Sodium (Divalproex Sprinkle 125 Mg Cap.Sprink) 125 mg PO DAILY [facility] Last Admin: 07/07/21 08:27 Dose: 125 mg Documented by: Escitalopram Oxalate (Escitalopram 20 Mg Tab) 20 mg PO [facility] Last Admin: 07/06/21 22:40 Dose: 20 mg Documented by: Estrogens Conjugated (Estrogens, Conjugated 0.3 Mg Tab) 0.3 mg PO DAILY [facility] Last Admin: 07/07/21 08:14 Dose: 0.3 mg Documented by: Sodium Chloride (Saline 0.9%) 1,000 mls @ 75 mls/hr IV .[id number] [facility] Last Admin: 07/07/21 05:29 Dose: 75 mls/hr Documented by: Metronidazole 500 mg/ IV (Solution) 100 mls @ 100 mls/hr IVPB Q8HR [facility] Last Admin: 07/07/21 08:14 Dose: 100 mls/hr Documented by: Levothyroxine Sodium (Levothyroxine 100 Mcg Tab) 100 mcg PO 0630 [facility] Last Admin: 07/07/21 05:29 Dose: 100 mcg Documented by: Morphine Sulfate (Morphine Sulfate 4 Mg/Ml Syringe) 4 mg IV Q4HR PRN PRN Reason: Severe Pain Last Admin: 07/07/21 08:32 Dose: 4 mg Documented by: Naloxone HCl (Naloxone 0.4 Mg/Ml 1 Ml Vial) 0.2 mg IV Q2M PRN PRN Reason: Opioid Reversal Ondansetron HCl (Ondansetron 4 Mg/2 Ml Vial) 4 mg IVP Q8HR PRN PRN Reason: Nausea And Vomiting Last Admin: 07/06/21 19:58 Dose: 4 mg Documented by: Ondansetron HCl (Ondansetron Odt 4 Mg Tab) 4 mg PO Q8HR PRN PRN Reason: Nausea Pantoprazole Sodium (Pantoprazole 40 Mg Tablet) 40 mg PO AC-BID [facility] Last Admin: 07/07/21 08:14 Dose: 40 mg Documented by: Polyethylene Glycol/Electrolytes (Peg 3350-Na Sulf,Bicarb,Cl/Kcl 4,000 Ml Bottle) 4,000 ml PO ONCE ONE Stop: 07/09/21 09:01 Prednisone (Prednisone 20 Mg Tab) 40 mg PO DAILY [facility] Last Admin: 07/07/21 08:14 Dose: 40 mg Documented by: Sodium Bicarbonate (Sodium Bicarbonate Tab 650 Mg Tab) 650 mg PO TID [facility] Last Admin: 07/07/21 08:14 Dose: 650 mg Documented by: Zolpidem Tartrate (Zolpidem 5 Mg Tab) 5 mg PO HS [facility] Last Admin: 07/06/21 22:41 Dose: 5 mg Documented by: On examination: VITAL SIGNS: 97.5, 53, 16, 158 with 75, 96% room air GENERAL APPEARANCE: Reclining bed, awake, comfortable HEENT: Normal external appearance of nose and ear. Oral cavity normal EYES: Pupils equal. Conjunctiva normal. NECK: JVD not raised. Mass not palpable. RESPIRATORY: Respiratory effort normal. Lungs clear to auscultation. CARDIOVASCULAR: First and second sounds normal. No edema. ABDOMEN: Soft. Central tenderness, no guarding rigidity Liver and spleen not palpable. No tenderness. No mass palpable. PSYCHIATRY: Alert and oriented x3. Mood and affect anxious Investigations: White count 8 hemoglobin 13.8 platelets 272 potassium 4.4 BUN 13 creatinine 0.53 Computed tomography scan of the abdomen and pelvis without contrast: No acute abnormality of the abdomen pelvis. Nonobstructing right renal calculus. Sigmoid diverticulosis. Assessment and plan: -Patient has episode of nausea vomiting diarrhea for which she presented. Possible acute gastroenteritis. Patient still having diffuse abdominal pain. No fever no chills. Change to by mouth Flagyl Will change to by mouth prednisone. Patient tolerating soft bland diet. -Bowel spasm Menstrual 20 mg 4 times a day -Acute kidney injury, prerenal: Better Creatinine improved from 1.2 down to 0.53. Cut back IV fluids -Metabolic acidosis from nausea vomiting diarrhea Add sodium bicarbonate -Chronic insomnia from multiple medical problems Ambien 12.5 by mouth daily at bedtime -Chronic pain syndrome MS Contin 45 mg by mouth twice a day -Depression not otherwise specified Lexapro 20 mg daily at bedtime -Hyperlipidemia Lipitor 20 mg daily at bedtime Changed to by mouth Flagyl. On oral prednisone. Tolerating soft diet. Pending upper and lower endoscopy on Saturday.
[2021-07-07] MEDS: metroNIDAZOLE 500 MG TAB PO SCH ×2 (15:40→20:48)
[2021-07-07] MEDS: HYDROcodone/APAP 7.5-325MG 1 EACH TAB PO PRN (19:29)
[2021-07-07] MEDS: ZOLPIDEM 5 MG TAB PO SCH (20:48)
[2021-07-07] MEDS: ATORVASTATIN 20 MG TAB PO SCH (20:48)
[2021-07-07] MEDS: ESCITALOPRAM 20 MG TAB PO SCH (20:54)
[2021-07-07 20:58] VITALS: RESP 18
[2021-07-08] MEDS: SODIUM CHLORIDE 0.9% 1,000 ML IV SCH ×2 (01:36→13:33)
[2021-07-08] MEDS: MORPHINE SULFATE 4 MG/ML SYRINGE IV PRN ×2 (04:35→10:23)
[2021-07-08] MEDS: LEVOTHYROXINE 100 MCG TAB PO SCH (05:53)
[2021-07-08] MEDS: predniSONE 20 MG TAB PO SCH (10:07)
[2021-07-08] MEDS: SODIUM BICARBONATE TAB 650 MG TAB PO SCH (10:07)
[2021-07-08] MEDS: PANTOPRAZOLE 40 MG TABLET PO SCH (10:07)
[2021-07-08] MEDS: metroNIDAZOLE 500 MG TAB PO SCH (10:07)
[2021-07-08] MEDS: DIVALPROEX SPRINKLE 125 MG CAP.SPRINK PO SCH (10:07)
[2021-07-08] MEDS: DICYCLOMINE 20 MG TAB PO SCH ×2 (10:07→13:52)
[2021-07-08] MEDS: ESTROGENS, CONJUGATED 0.3 MG TAB PO SCH (10:08)
--- NOTE | 2021-07-08 11:10 | P.PN ---
Progress Note - Text Progress Note Date: 07/08/21 Patient remains unchanged. She still has some crampy abdominal pain. On exam vitals are stable. Abdomen soft. Patient will undergo EGD colonoscopy on Saturday.
[2021-07-08 11:55] VITALS: BP 126/75; PULSE 48; TEMP 97.9
--- NOTE | 2021-07-08 16:53 | P.DS ---
Providers Date of admission: 07/05/21 01:24 Expected date of discharge: 07/08/21 Attending physician: Isidro Diamond Consults: 07/05/21 17:01 Consult Physician Routine Consulting Provider: Wilmar Rodriguez Consult Reason/Comments: diarrhea/abdominal pain Do you want consulting provider notified?: Yes Primary care physician: [facility] Course: Presenting complaint: Nausea vomiting diarrhea Interval history: Patient admitted with nausea vomiting diarrhea. Also having abdominal pain. 07/06/2021: Sitting up in bed. Diffuse abdominal pain. No nausea vomiting. Di d tolerate a soft diet. No bowel movements today. Dr. Rodriguez is planning for a colonoscope on Saturday. No fever no chills. July 072020 handout pain better. Tolerating diet. No fever no chills. Up to the bathroom. July 08: Patient's abdominal pain is better. Has been tolerating a regular diet. No nausea vomiting. Patient has chronic pain. Syndrome for which she takes MS Contin. Discussed in detail with the patient. She can be discharged. Follow-up with GI as an outpatient. Nothing surgically the present time. Abdomen is soft. Up and about. Eating about 50-75% of her meals. Questions answered. She'll follow up with also Dr. Diamond her PCP. Possibly low-grade colitis which is improved. Discussion and discharge planning more than 35 minutes Consultation: Dr. Rodriguez from general surgery On examination: VITAL SIGNS: 97.9, 48, 18, 126/75, 98% room air GENERAL APPEARANCE: Reclining bed, awake, comfortable HEENT: Normal external appearance of nose and ear. Oral cavity normal EYES: Pupils equal. Conjunctiva normal. NECK: JVD not raised. Mass not palpable. RESPIRATORY: Respiratory effort normal. Lungs clear to auscultation. CARDIOVASCULAR: First and second sounds normal. No edema. ABDOMEN: Soft. Minimal tenderness, no guarding rigidity Liver and spleen not palpable. No tenderness. No mass palpable. PSYCHIATRY: Alert and oriented x3. Mood and affect anxious Investigations: White count 8 hemoglobin 13.8 platelets 272 potassium 4.4 BUN 13 creatinine 0.53 Computed tomography scan of the abdomen and pelvis without contrast: No acute abnormality of the abdomen pelvis. Nonobstructing right renal calculus. Sigmoid diverticulosis. Assessment and plan: -Probable colitis. Clinically much improved. By mouth Flagyl and taper prednisone. Patient to follow outpatient with GI. -Bowel spasm Bentyl 20 mg 4 times a day -Acute kidney injury, prerenal: Better Creatinine improved from 1.2 down to 0.53. Received IV fluids -Metabolic acidosis from nausea vomiting diarrhea Add sodium bicarbonate -Chronic insomnia from multiple medical problems Ambien 12.5 by mouth daily at bedtime -Chronic pain syndrome MS Contin 45 mg by mouth twice a day -Depression not otherwise specified Lexapro 20 mg daily at bedtime -Hyperlipidemia Lipitor 20 mg daily at bedtime Disposition: Home Plan - Discharge Summary Discharge Rx Participant: No New Discharge Prescriptions: New metroNIDAZOLE [Flagyl] 500 mg PO TID #15 tab predniSONE 0 mg PO DIRECTED #20 tab Pantoprazole [Protonix] 40 mg PO AC-BID #60 tab Sodium Bicarbonate Tab 650 mg PO TID #30 tab Continue Zolpidem Tartrate [Ambien Cr] 12.5 mg PO HS HYDROcodone/APAP 7.5-325MG [[place] 7.5-325] 1 tab PO DAILY PRN PRN Reason: Pain Morphine Sulfate ER [Ms Contin] 30 mg PO BID Morphine Sulfate ER [Ms Contin] 15 mg PO BID Estrogens, Conjugated [Premarin] 0.3 mg PO DAILY Escitalopram [Lexapro] 20 mg PO HS Divalproex Sodium [Depakote] 125 mg PO DAILY Dicyclomine [Bentyl] 20 mg PO TID PRN #20 tablet PRN Reason: abdominal pain Ondansetron [Zofran ODT] 4 mg PO Q8HR PRN #15 tab PRN Reason: Nausea Linaclotide [Linzess] 145 mcg PO DAILY Atorvastatin [Lipitor] 20 mg PO HS Levothyroxine Sodium [Synthroid] 100 mcg PO DAILY Discharge Medication List Zolpidem Tartrate [Ambien Cr] 12.5 mg PO HS 01/22/15 [History] Estrogens, Conjugated [Premarin] 0.3 mg PO DAILY 09/03/16 [History] HYDROcodone/APAP 7.5-325MG [[place] 7.5-325] 1 tab PO DAILY PRN 09/03/16 [History] Morphine Sulfate ER [Ms Contin] 15 mg PO BID 09/03/16 [History] Morphine Sulfate ER [Ms Contin] 30 mg PO BID 09/03/16 [History] Escitalopram [Lexapro] 20 mg PO HS 06/08/19 [History] Atorvastatin [Lipitor] 20 mg PO HS 12/19/20 [History] Levothyroxine Sodium [Synthroid] 100 mcg PO DAILY 12/19/20 [History] Dicyclomine [Bentyl] 20 mg PO TID PRN #20 tablet 05/13/21 [Rx] Divalproex Sodium [Depakote] 125 mg PO DAILY 05/13/21 [History] Ondansetron [Zofran ODT] 4 mg PO Q8HR PRN #15 tab 05/13/21 [Rx] Linaclotide [Linzess] 145 mcg PO DAILY 07/04/21 [History] Pantoprazole [Protonix] 40 mg PO AC-BID #60 tab 07/08/21 [Rx] Sodium Bicarbonate Tab 650 mg PO TID #30 tab 07/08/21 [Rx] metroNIDAZOLE [Flagyl] 500 mg PO TID #15 tab 07/08/21 [Rx] predniSONE 0 mg PO DIRECTED #20 tab 07/08/21 [Rx] Follow up Appointment(s)/Referral(s): Isidro Diamond MD [Primary Care Provider] - 1-2 days Marixa Zayas MD [STAFF PHYSICIAN] - 10 Days Patient Instructions/Handouts: Prednisone (By mouth), Metronidazole (By mouth), Pantoprazole (By mouth), Sodium Bicarbonate (By mouth), Dehydration (DC), Gastroenteritis (DC), Colitis (ED) Discharge Disposition: HOME SELF-CARE
[2021-07-09] MEDS ORDERED: PEG 3350-NA SULF,BICARB,CL/KCL 4,000 ML BOTTLE PO ONE (09:00)
== END 2021-07-08 15:35 | disposition home or self-care (01) | DRG 392 ==
LOC: EC 22:05 → 5NMEDONC 07-05 01:24
PROVIDERS: ADMIT Family Medicine; ATTEND Family Medicine
DX: K52.9 Noninfective gastroenteritis and colitis, unspecified (principal); N17.9 Acute kidney failure, unspecified; E87.2 Acidosis; E86.0 Dehydration; E03.9 Hypothyroidism, unspecified; E78.5 Hyperlipidemia, unspecified; E87.6 Hypokalemia; F17.200 Nicotine dependence, unspecified, uncomplicated; F32.9 Major depressive disorder, single episode, unspecified; F51.04 Psychophysiologic insomnia; G89.4 Chronic pain syndrome; J45.909 Unspecified asthma, uncomplicated; K57.90 Diverticulosis of intestine, part unspecified, without perforation or abscess without bleeding; K64.4 Residual hemorrhoidal skin tags; K64.8 Other hemorrhoids; Z79.890 Hormone replacement therapy; Z79.899 Other long term (current) drug therapy; Z90.710 Acquired absence of both cervix and uterus; Z80.8 Family history of malignant neoplasm of other organs or systems; Z98.890 Other specified postprocedural states; Z98.1 Arthrodesis status; Z90.49 Acquired absence of other specified parts of digestive tract
CPT/HCPCS: 36415; 74176; 80053; 80143; 80179; 80320; 81003; 83605; 83735; 84100; 84484; 85025; 85610; 85730; 87635; 93005; 96361; 96374; 96375; 96376; 99285

== ENCOUNTER 2021-10-28 14:36 | Inpatient (IN) | payer OTHER ==
[2021-10-28] MEDS ORDERED: ONDANSETRON 4 MG/2 ML VIAL IVP STA (16:41)
[2021-10-28] MEDS ORDERED: SODIUM CHLORIDE 0.9% 1,000 ML IV STA (16:41)
[2021-10-28] MEDS ORDERED: HYDROmorphone 1 MG/ML 1 ML SYRINGE IVP STA ×2 (16:42→18:30)
--- NOTE | 2021-10-28 17:09 | ED ---
Nausea/Vomiting/Diarrhea HPI - General Chief complaint: Nausea/Vomiting/Diarrhea Stated complaint: abd pain, diarrhea Time Seen by Provider: 10/28/21 16:33 Source: patient Mode of arrival: ambulatory Limitations: no limitations - History of Present Illness Initial comments: 66 year-old female patient presents to the emergency department for evaluation of nausea, abdominal pain, and cramping. Symptoms started yesterday and have been persistent. She is unable to eat or drink due to immediate abdominal cramping and watery diarrhea. Denies any hematochezia or melena. States she has had a few episodes like this in the past and was diagnosed with colitis. States she did take dicyclomine without relief. She had colonscopy in December, no abnormalities. She denies fever or chills. States chest pain started today. Over the left side of her chest. Reports some shortness of breath. Patient denies any recent rash, cough, back pain, numbness, tingling, dizziness, weakness, hematuria, dysuria, urinary urgency, urinary frequency, visual changes, or any other complaints. - Related Data Home Medications Medication Instructions Recorded Confirmed Zolpidem Tartrate [Ambien Cr] 12.5 mg PO HS 01/22/15 10/28/21 Estrogens, Conjugated [Premarin] 0.3 mg PO DAILY 09/03/16 10/28/21 HYDROcodone/APAP 7.5-325MG [[place] 1 tab PO BID PRN 09/03/16 10/28/21 7.5-325] Morphine Sulfate ER [Ms Contin] 30 mg PO BID PRN 09/03/16 10/28/21 Atorvastatin [Lipitor] 20 mg PO HS 12/19/20 10/28/21 Levothyroxine Sodium [Synthroid] 100 mcg PO DAILY 12/19/20 10/28/21 Divalproex Sodium [Depakote] 125 mg PO DAILY 05/13/21 10/28/21 busPIRone HCl [Buspar] 10 mg PO BID PRN 10/28/21 10/28/21 hydrOXYzine HCL [Atarax] 10 mg PO TID PRN 10/28/21 10/28/21 Previous Rx's Medication Instructions Recorded Dicyclomine [Bentyl] 20 mg PO TID PRN #20 tablet 05/13/21 Pantoprazole [Protonix] 40 mg PO AC-BID #60 tab 07/08/21 Allergies Allergy/AdvReac Type Severity Reaction Status Date / Time Iodinated Contrast Media Allergy Rash/Hives/ Verified 10/28/21 21:36 [Iodinated Contrast Media - Swelling Oral and] Review of Systems ROS Statement: Those systems with pertinent positive or pertinent negative responses have been documented in the HPI. ROS Other: All systems not noted in ROS Statement are negative. Past Medical History Past Medical History: Asthma, Hyperlipidemia, Osteoarthritis (OA), Thyroid Disorder Additional Past Medical History / Comment(s): takes depakote for migraine headaches, hemmorhoids, nerve pain, diverticulitus History of Any Multi-Drug Resistant Organisms: None Reported Past Surgical History: Back Surgery, Cholecystectomy, Hysterectomy, Orthopedic Surgery Additional Past Surgical History / Comment(s): back surg. x2, lumbar fusion, left shoulder rotator cuff Past Anesthesia/Blood Transfusion Reactions: Postoperative Nausea & Vomiting (PONV) Past Psychological History: Anxiety, Depression Smoking Status: Current some day smoker Past Alcohol Use History: None Reported Past Drug Use History: None Reported - Past Family History Mother Family Medical History: Cancer Additional Family Medical History / Comment(s): brain General Exam Limitations: no limitations General appearance: alert, in no apparent distress, other (This is a well-developed, well-nourished adult female in no acute distress.) ENT exam: Present: normal exam, normal oropharynx, mucous membranes moist Respiratory exam: Present: normal lung sounds bilaterally. Absent: respiratory distress, wheezes, rales, rhonchi, stridor Cardiovascular Exam: Present: regular rate, normal rhythm, normal heart sounds. Absent: systolic murmur, diastolic murmur, rubs, gallop, clicks GI/Abdominal exam: Present: soft, tenderness (Generalized), normal bowel sounds. Absent: distended, guarding, rebound, rigid Neurological exam: Present: alert, oriented X3, CN II-XII intact Psychiatric exam: Present: normal affect, normal mood Skin exam: Present: warm, dry, intact, normal color. Absent: rash Course Vital Signs 10/28/21 10/28/21 10/28/21 14:47 17:10 18:55 Temperature 97.6 F Pulse Rate 64 59 L 54 L Respiratory 18 18 20 Rate Blood Pressure 148/76 172/74 166/64 O2 Sat by Pulse 95 98 98 Oximetry Medical Decision Making - Medical Decision Making 66-year-old female patient presents to the emergency department today for evaluation of abdominal pain and diarrhea. She is also reporting left-sided chest pain and some shortness of breath. Physical examination did reveal generalized abdominal tenderness. Labs reviewed and are unremarkable. Chest x- ray negative. EKG shows no ST elevation or depression. Upon reevaluation she is resting comfortably. Has had no more diarrhea since arriving here. Still reports abdominal pain. She'll be admitted to the hospital for further eval uation by cardiology for chest pain. She is agreeable this plan. My attending is Dr. Granger. - Lab Data Result diagrams: 10/28/21 17:10 10/28/21 17:10 Lab Results 10/28/21 10/28/21 10/28/21 Range/Units 17:10 17:10 17:10 WBC 9.1 (3.8-10.6) k/uL RBC 4.35 (3.80-5.40) m/uL Hgb 14.4 (11.4-16.0) gm/dL Hct 42.3 (34.0-46.0) % MCV 97.3 (80.0-100.0) fL MCH 33.2 (25.0-35.0) pg MCHC 34.1 (31.0-37.0) g/dL RDW 13.8 (11.5-15.5) % Plt Count 359 (150-450) k/uL MPV 7.6 Neutrophils % 59 % Lymphocytes % 34 % Monocytes % 4 % Eosinophils % 1 % Basophils % 1 % Neutrophils # 5.4 (1.3-7.7) k/uL Lymphocytes # 3.1 (1.0-4.8) k/uL Monocytes # 0.3 (0-1.0) k/uL Eosinophils # 0.1 (0-0.7) k/uL Basophils # 0.1 (0-0.2) k/uL Sodium 140 (137-145) mmol/L Potassium 3.9 (3.5-5.1) mmol/L Chloride 111 H (98-107) mmol/L Carbon Dioxide 19 L (22-30) mmol/L Anion Gap 10 mmol/L BUN 15 (7-17) mg/dL Creatinine 0.53 (0.52-1.04) mg/dL Est GFR (CKD-EPI)AfAm >90 (>60 ml/min/1.73 sqM) Est GFR (CKD-EPI)NonAf >90 (>60 ml/min/1.73 sqM) Glucose 87 (74-99) mg/dL Calcium 9.7 (8.4-10.2) mg/dL Total Bilirubin 0.6 (0.2-1.3) mg/dL AST 25 (14-36) U/L ALT 13 (4-34) U/L Alkaline Phosphatase 149 H (38-126) U/L Troponin I <0.012 (0.000-0.034) ng/mL Total Protein 6.8 (6.3-8.2) g/dL Albumin 4.0 (3.5-5.0) g/dL Lipase 66 (23-300) U/L Urine Color Urine Appearance (Clear) Urine pH (5.0-8.0) Ur Specific [place] (1.001-1.035) Urine Protein (Negative) Urine Glucose (UA) (Negative) Urine Ketones (Negative) Urine Blood (Negative) Urine Nitrite (Negative) Urine Bilirubin (Negative) Urine Urobilinogen (<2.0) mg/dL Ur Leukocyte Esterase (Negative) Urine RBC (0-5) /hpf Urine WBC (0-5) /hpf Ur Squamous Epith Cells (0-4) /hpf Urine Bacteria (None) /hpf Urine Mucus (None) /hpf 10/28/21 Range/Units 18:28 WBC (3.8-10.6) k/uL RBC (3.80-5.40) m/uL Hgb (11.4-16.0) gm/dL Hct (34.0-46.0) % MCV (80.0-100.0) fL MCH (25.0-35.0) pg MCHC (31.0-37.0) g/dL RDW (11.5-15.5) % Plt Count (150-450) k/uL MPV Neutrophils % % Lymphocytes % % Monocytes % % Eosinophils % % Basophils % % Neutrophils # (1.3-7.7) k/uL Lymphocytes # (1.0-4.8) k/uL Monocytes # (0-1.0) k/uL Eosinophils # (0-0.7) k/uL Basophils # (0-0.2) k/uL Sodium (137-145) mmol/L Potassium (3.5-5.1) mmol/L Chloride (98-107) mmol/L Carbon Dioxide (22-30) mmol/L Anion Gap mmol/L BUN (7-17) mg/dL Creatinine (0.52-1.04) mg/dL Est GFR (CKD-EPI)AfAm (>60 ml/min/1.73 sqM) Est GFR (CKD-EPI)NonAf (>60 ml/min/1.73 sqM) Glucose (74-99) mg/dL Calcium (8.4-10.2) mg/dL Total Bilirubin (0.2-1.3) mg/dL AST (14-36) U/L ALT (4-34) U/L Alkaline Phosphatase (38-126) U/L Troponin I (0.000-0.034) ng/mL Total Protein (6.3-8.2) g/dL Albumin (3.5-5.0) g/dL Lipase (23-300) U/L Urine Color Yellow Urine Appearance Cloudy H (Clear) Urine pH 5.5 (5.0-8.0) Ur Specific [place] 1.019 (1.001-1.035) Urine Protein Trace H (Negative) Urine Glucose (UA) Negative (Negative) Urine Ketones 2+ H (Negative) Urine Blood Trace H (Negative) Urine Nitrite Negative (Negative) Urine Bilirubin Negative (Negative) Urine Urobilinogen <2.0 (<2.0) mg/dL Ur Leukocyte Esterase Negative (Negative) Urine RBC 2 (0-5) /hpf Urine WBC 2 (0-5) /hpf Ur Squamous Epith Cells 17 H (0-4) /hpf Urine Bacteria Moderate H (None) /hpf Urine Mucus Many H (None) /hpf - EKG Data -: EKG Interpreted by Me EKG Comments: EKG #1 obtained at 1726 shows sinus bradycardia with a rate of 53, ND interval 140, QRS duration 88, QT 474, QTC 458. EKG #2 obtained at 1747 shows sinus bradycardia with a ventricular rate of 55, P R interval 148, QR confucianist 88, QTC 491, QTC 479. No evidence of ST elevation or depression - Radiology Data Radiology results: report reviewed, image reviewed Two-view x-ray of the chest is obtained. Report was reviewed in its entirety. Impression by Dr. Perdomo shows normal chest. No change. Disposition Clinical Impression: Chest pain, Abdominal pain, Diarrhea Disposition: ADMITTED IP TO THIS [facility] Condition: Serious Referrals: Isidro Diamond MD [Primary Care Provider] - 1-2 days Decision to Admit Reason: Admit from EC Decision Date: 10/28/21 Decision Time: 19:33
[2021-10-28 17:28] LABS: Basophils # (A) 0.1 k/uL (0-0.2); Basophils % (A) 1 %; Eosinophils # (A) 0.1 k/uL (0-0.7); Eosinophils % (A) 1 %; HCT 42.3 % (34.0-46.0); HGB 14.4 gm/dL (11.4-16.0); Lymphocytes # (A) 3.1 k/uL (1.0-4.8); Lymphocytes % (A) 34 %; MCH 33.2 pg (25.0-35.0); MCHC 34.1 g/dL (31.0-37.0); MCV 97.3 fL (80.0-100.0); Mean Platelet Volume 7.6; Monocytes # (A) 0.3 k/uL (0-1.0); Monocytes % (A) 4 %; Neutrophils # (A) 5.4 k/uL (1.3-7.7); Neutrophils % (A) 59 %; Platelet Count 359 k/uL (150-450); RBC 4.35 m/uL (3.80-5.40); RDW 13.8 % (11.5-15.5); WBC 9.1 k/uL (3.8-10.6)
[2021-10-28 17:37] LABS: ALT 13 U/L (4-34); AST 25 U/L (14-36); African American GFR (CKD) >90 (>60 ml/min/1.73 sqM); Alkaline Phosphatase 149 U/L (38-126); Anion Gap 10 mmol/L; Blood Urea Nitrogen 15 mg/dL (7-17); Calcium 9.7 mg/dL (8.4-10.2); Carbon Dioxide 19 mmol/L (22-30); Chloride 111 mmol/L (98-107); Glucose 87 mg/dL (74-99); Lipase 66 U/L (23-300); Non-African American GFR(CKD) >90 (>60 ml/min/1.73 sqM); Potassium 3.9 mmol/L (3.5-5.1); Sodium 140 mmol/L (137-145); Total Bilirubin 0.6 mg/dL (0.2-1.3); Total Protein 6.8 g/dL (6.3-8.2)
[2021-10-28 18:34] LABS: Appearance,Urine Cloudy (Clear); Bacteria,Urine Moderate /hpf; Bilirubin,Urine Negative (Negative); Blood,Urine Trace (Negative); Color,Urine Yellow; Glucose,Urine (UA) Negative (Negative); Ketones,Urine 2+ (Negative); Leukocyte Esterase,Urine Negative (Negative); Mucus,Urine Many /hpf; Nitrite,Urine Negative (Negative); PH, Urine 5.5 (5.0-8.0); Protein,Urine Trace (Negative); RBC,Urine 2 /hpf (0-5); Specific Gravity,Urine 1.019 (1.001-1.035); Squamous Epithelial Cell,Urine 17 /hpf (0-4); Urobilinogen,Urine <2.0 mg/dL (<2.0); WBC,Urine 2 /hpf (0-5)
[2021-10-28] MEDS ORDERED: NALOXONE 0.4 MG/ML 1 ML VIAL IV PRN (19:55)
[2021-10-28] MEDS ORDERED: ONDANSETRON 4 MG/2 ML VIAL IVP PRN (20:06)
--- NOTE | 2021-10-28 20:30 | XR ---
EXAMINATION TYPE: XR chest 2V DATE OF EXAM: 10/28/2021 COMPARISON: 09/03/2016 HISTORY: Chest pain TECHNIQUE: FINDINGS: Heart and mediastinum are normal. Lungs are clear. Diaphragm is normal. Bony thorax is inta ct. There are chest leads. IMPRESSION: Normal chest. No change.
[2021-10-28] MEDS ORDERED: DICYCLOMINE 20 MG TAB PO PRN (22:00)
[2021-10-28] MEDS ORDERED: hydrOXYzine HCL 10 MG TAB PO PRN (22:00)
[2021-10-28] MEDS ORDERED: MORPHINE SULFATE ER 30 MG TABLET PO PRN (22:00)
[2021-10-28] MEDS ORDERED: busPIRone HCl 10 MG TAB PO PRN (22:00)
[2021-10-28] MEDS: HYDROmorphone 1 MG/ML 1 ML SYRINGE IVP PRN (22:51)
[2021-10-28] MEDS: ZOLPIDEM 5 MG TAB PO SCH (22:55)
[2021-10-29] MEDS: HYDROmorphone 1 MG/ML 1 ML SYRINGE IVP PRN ×5 (03:53→23:59)
[2021-10-29] MEDS: LEVOTHYROXINE 100 MCG TAB PO SCH (07:43)
[2021-10-29] MEDS: PANTOPRAZOLE 40 MG TABLET PO SCH ×2 (07:43→16:41)
[2021-10-29] MEDS: DIVALPROEX SPRINKLE 125 MG CAP.SPRINK PO SCH (07:43)
[2021-10-29] MEDS: ESTROGENS, CONJUGATED 0.3 MG TAB PO SCH (07:44)
--- NOTE | 2021-10-29 10:35 | P.CRDCN ---
History of Present Illness History of present illness: HISTORY OF PRESENTING ILLNESS Patient is a pleasant 66-year-old female with history of colitis, hyperlipidemia, hypothyroidism who presents secondary to abdominal pain and diarrhea. She states she does have a history of colitis with similar episodes in the past. She denies any hematochezia or melena. She states also over the last 2 days she has been having a achy feeling in the chest which only last for 2-3 seconds and goes away. She states currently it has improved. There is no a ssociation with any movement or exertion. No associated diaphoresis or lightheadedness. Telemetry reviewed without any PVCs or arrhythmias noted. She did see a property inspector proximally 3-4 years ago with relatively normal workup at that time. EKG performed shows normal sinus rhythm, no significant ST or T wave abnormalities. Blood work with normal troponins 3. REVIEW OF SYSTEMS At the time of my exam: CONSTITUTIONAL: Denies fever or chills. CARDIOVASCULAR: +hest pain, no shortness of breath, orthopnea, PND or palpitations. RESPIRATORY: Denies cough. GASTROINTESTINAL: +abdominal pain, +diarrhea, no constipation, nausea or vomiting. MUSCULOSKELETAL: Denies myalgias. NEUROLOGIC: Denies numbness, tingling or weakness. ENDOCRINE: Denies fatigue, weight change, polydipsia or polyurina. GENITOURINARY: Denies burning, hematuria or urgency with micturation. HEMATOLOGIC: Denies history of anemia or bleeding. PHYSICAL EXAMINATION Vital signs reviewed. CONSTITUTIONAL: No apparent distress. HEENT: Head is normocephalic. Pupils are equal, round. Sclerae anicteric. Mucous membranes of the mouth are moist. No JVD. No carotid bruit. CHEST EXAMINATION: Lungs are clear to auscultation. No chest wall tenderness is noted on palpation or with deep breathing. HEART EXAMINATION: Regular rate and rhythm. S1, S2 heard. No murmurs, gallops or rub. ABDOMEN: Soft, nontender. Positive bowel sounds. EXTREMITIES: 2+ peripheral pulses, no lower extremity edema and no calf tenderness. NEUROLOGIC EXAMINATION: Patient is awake, alert and oriented x3. ASSESSMENT 1. Noncardiac chest pain only lasting for 2-3 seconds, maybe musculoskeletal 2. Abdominal pain with diarrhea likely related to her history of colitis 3. Hyperlipidemia 4. Asymptomatic sinus bradycardia PLAN Patient's chest pain is atypical and has resolved. Troponins normal 3 and does not appear cardiac in nature. Defer management of abdominal pain and diarrhea to internal medicine. Check 2-D echo however this may be performed outpatient if she is going home today. Follow-up in office in 1-2 weeks. Past Medical History Past Medical History: Asthma, Hyperlipidemia, Osteoarthritis (OA), Thyroid Disorder Additional Past Medical History / Comment(s): takes depakote for migraine headaches, hemmorhoids, nerve pain, diverticulitus History of Any Multi-Drug Resistant Organisms: None Reported Past Surgical History: Back Surgery, Cholecystectomy, Hysterectomy, Orthopedic Surgery Additional Past Surgical History / Comment(s): back surg. x2, lumbar fusion, left shoulder rotator cuff Past Anesthesia/Blood Transfusion Reactions: Postoperative Nausea & Vomiting (PONV) Past Psychological History: Anxiety, Depression Smoking Status: Current some day smoker Past Alcohol Use History: None Reported Past Drug Use History: None Reported - Past Family History Mother Family Medical History: Cancer Additional Family Medical History / Comment(s): brain Medications and Allergies Home Medications Medication Instructions Recorded Confirmed Type Zolpidem Tartrate [Ambien Cr] 12.5 mg PO HS 01/22/15 10/28/21 History Estrogens, Conjugated [Premarin] 0.3 mg PO DAILY 09/03/16 10/28/21 History HYDROcodone/APAP 7.5-325MG [[place] 1 tab PO BID PRN 09/03/16 10/28/21 History 7.5-325] Morphine Sulfate ER [Ms Contin] 30 mg PO BID PRN 09/03/16 10/28/21 History Atorvastatin [Lipitor] 20 mg PO HS 12/19/20 10/28/21 History Levothyroxine Sodium [Synthroid] 100 mcg PO DAILY 12/19/20 10/28/21 History Dicyclomine [Bentyl] 20 mg PO TID PRN #20 tablet 05/13/21 10/28/21 Rx Divalproex Sodium [Depakote] 125 mg PO DAILY 05/13/21 10/28/21 History Pantoprazole [Protonix] 40 mg PO AC-BID #60 tab 07/08/21 10/28/21 Rx busPIRone HCl [Buspar] 10 mg PO BID PRN 10/28/21 10/28/21 History hydrOXYzine HCL [Atarax] 10 mg PO TID PRN 10/28/21 10/28/21 History Allergies Allergy/AdvReac Type Severity Reaction Status Date / Time Iodinated Contrast Media Allergy Rash/Hives/ Verified 10/28/21 21:36 [Iodinated Contrast Media - Swelling Oral and] Physical Exam Vitals: Vital Signs Temp Pulse Pulse Resp BP BP Pulse Ox 10/29/21 08:40 63 18 10/29/21 07:00 97.4 F L 63 18 150/73 96 10/29/21 06:27 97.9 F 52 L 15 150/73 97 10/29/21 02:09 87 20 163/65 96 10/28/21 22:00 52 L 20 152/97 96 10/28/21 18:55 54 L 20 166/64 98 10/28/21 17:10 59 L 18 172/74 98 10/28/21 14:47 97.6 F 64 18 148/76 95 Intake and Output 10/28/21 10/29/21 10/29/21 22:59 06:59 14:59 Other: Voiding Method Toilet Results 10/28/21 17:10 10/28/21 17:10 Cardiac Enzymes 10/28/21 10/28/21 10/28/21 Range/Units 17:10 17:10 22:08 AST 25 (14-36) U/L Troponin I <0.012 <0.012 (0.000-0.034) ng/mL 10/29/21 Range/Units 00:46 AST (14-36) U/L Troponin I <0.012 (0.000-0.034) ng/mL CBC 10/28/21 Range/Units 17:10 WBC 9.1 (3.8-10.6) k/uL RBC 4.35 (3.80-5.40) m/uL Hgb 14.4 (11.4-16.0) gm/dL Hct 42.3 (34.0-46.0) % Plt Count 359 (150-450) k/uL Comprehensive Metabolic Panel 10/28/21 Range/Units 17:10 Sodium 140 (137-145) mmol/L Potassium 3.9 (3.5-5.1) mmol/L Chloride 111 H (98-107) mmol/L Carbon Dioxide 19 L (22-30) mmol/L BUN 15 (7-17) mg/dL Creatinine 0.53 (0.52-1.04) mg/dL Glucose 87 (74-99) mg/dL Calcium 9.7 (8.4-10.2) mg/dL AST 25 (14-36) U/L ALT 13 (4-34) U/L Alkaline Phosphatase 149 H (38-126) U/L Total Protein 6.8 (6.3-8.2) g/dL Albumin 4.0 (3.5-5.0) g/dL Current Medications Generic Name Dose Route Start Last Admin Trade Name Freq PRN Reason Stop Dose Admin Atorvastatin Calcium 20 mg 10/29/21 21:00 Atorvastatin 20 Mg Tab PO HS SUMEET Buspirone HCl 10 mg 10/28/21 22:00 Buspirone Hcl 10 Mg Tab PO BID PRN Anxiety Dicyclomine HCl 20 mg 10/28/21 22:00 Dicyclomine 20 Mg Tab PO TID PRN abdominal pain Divalproex Sodium 125 mg 10/29/21 09:00 10/29/21 07:43 Divalproex Sprinkle 125 Mg Cap.Sprink PO 125 mg DAILY SUMEET Administration Estrogens Conjugated 0.3 mg 10/29/21 09:00 10/29/21 07:44 Estrogens, Conjugated 0.3 Mg Tab PO 0.3 mg DAILY SUMEET Administration Hydromorphone HCl 1 mg 10/28/21 20:06 10/29/21 09:57 Hydromorphone 1 Mg/Ml 1 Ml Syringe IVP 1 mg Q3HR PRN Administration Severe Pain Hydroxyzine HCl 10 mg 10/28/21 22:00 Hydroxyzine Hcl 10 Mg Tab PO TID PRN Anxiety Levothyroxine Sodium 100 mcg 10/29/21 06:30 10/29/21 07:43 Levothyroxine 100 Mcg Tab PO 100 mcg DAILY@0630 SUMEET Administration Morphine Sulfate 30 mg 10/28/21 22:00 Morphine Sulfate Er 30 Mg Tablet PO BID PRN Pain Protocol Naloxone HCl 0.2 mg 10/28/21 19:55 Naloxone 0.4 Mg/Ml 1 Ml Vial IV Q2M PRN Opioid Reversal Ondansetron HCl 4 mg 10/28/21 20:06 Ondansetron 4 Mg/2 Ml Vial IVP Q8HR PRN Nausea And Vomiting Pantoprazole Sodium 40 mg 10/29/21 07:30 10/29/21 07:43 Pantoprazole 40 Mg Tablet PO 40 mg AC-BID SUMEET Administration Zolpidem Tartrate 5 mg 10/28/21 22:50 10/28/21 22:55 Zolpidem 5 Mg Tab PO 5 mg HS SUMEET Administration Intake and Output 10/28/21 10/29/21 10/29/21 22:59 06:59 14:59 Other: Voiding Method Toilet 10/28/21 17:10 10/28/21 17:10
--- NOTE | 2021-10-29 16:13 | HP ---
HISTORY AND PHYSICAL This is a 66-year-old white female with a history of colitis, dyslipidemia, hypothyroidism. She comes into the hospital with abdominal pain, diarrhea and some atypical chest pain. She has had a history of colitis in the past. She denies any melena or hematochezia. She has had an achy feeling in the chest over the last 2 to 3 days, lasting for 2 to 3 seconds, then it goes away, related to exertion or with diaphoresis or lightheadedness. Telemetry shows no PVCs or arrhythmias. EKG sinus rhythm, no ST-T changes. So far she has had 3 negative troponins. Fourteen-point review of systems otherwise negative. MEDICATIONS: See list. Medications were reviewed. PAST MEDICAL HISTORY: See list. It was reviewed. She is in no apparent distress. HEENT: Pupils equal, round, reactive. Lungs are clear. HEART: S1, S2. No murmurs, rubs, gallops. Abdomen is soft. Positive bowel sounds. Minimal guarding. EXTREMITIES: Two plus edema. PSYCH: Fair mood. Alert and orient x3. ASSESSMENT: 1. Acute colitis flare. 2. Atypical chest pain. Wait for Cardiology to see. 3. Asymptomatic sinus bradycardia. 4. Dyslipidemia. Cardiology will clear her. 5. Abdominal pain and diarrhea. Possibly treat for colitis. PROGNOSIS: Guarded. History of multiple medical problems. Home medications will be continued. Surgical history reviewed. See chart. Family history reviewed. See chart. MMODL / IJN: [id number] /
[2021-10-29] MEDS: methylPREDNISolone SOD SUCCI 40 MG/ML 1 ML VIAL IV SCH ×2 (16:40→23:03)
[2021-10-29] MEDS: metroNIDAZOLE-NS PMX 500 MG in SALINE 1 100ML.BAG IVPB SCH ×2 (16:40→23:03)
[2021-10-29] MEDS: ATORVASTATIN 20 MG TAB PO SCH (20:44)
[2021-10-29] MEDS: ZOLPIDEM 5 MG TAB PO SCH (20:44)
[2021-10-29] MEDS ORDERED: ZOLPIDEM 5 MG TAB PO SCH (21:00)
[2021-10-30] MEDS: HYDROmorphone 1 MG/ML 1 ML SYRINGE IVP PRN ×4 (03:43→20:25)
[2021-10-30] MEDS: LEVOTHYROXINE 100 MCG TAB PO SCH ×2 (05:49→23:44)
[2021-10-30] MEDS: PANTOPRAZOLE 40 MG TABLET PO SCH ×2 (09:39→16:15)
[2021-10-30] MEDS: DIVALPROEX SPRINKLE 125 MG CAP.SPRINK PO SCH (09:39)
[2021-10-30] MEDS: methylPREDNISolone SOD SUCCI 40 MG/ML 1 ML VIAL IV SCH ×3 (09:39→23:33)
[2021-10-30] MEDS: metroNIDAZOLE-NS PMX 500 MG in SALINE 1 100ML.BAG IVPB SCH ×3 (09:40→23:33)
--- NOTE | 2021-10-30 10:36 | P.PN ---
Subjective Progress Note Date: 10/30/21 HISTORY OF PRESENT ILLNESS: Patient is a pleasant 66-year-old female with history of colitis, hyperlipidemia, hypothyroidism who presents secondary to abdominal pain and diarrhea. She states she does have a history of colitis with similar episodes in the past. She denies any hematochezia or melena. She states also over the last 2 days she has been having a achy feeling in the chest which only last for 2-3 seconds and goes away. She states currently it has improved. There is no association with any movement or exertion. No associated diaphoresis or lightheadedness. Telemetry reviewed without any PVCs or arrhythmias noted. She did see a food general manager proximally 3-4 years ago with relatively normal workup at that time. EKG performed shows normal sinus rhythm, no significant ST or T wave abnormalities. Blood work with normal troponins 3. 10/30/2021 Patient examined this morning at the bedside. Patient denies chest pain or pressure. She denies shortness of breath. Patient states her diarrhea has resolved. She also reports improvement in her abdominal pain. Vital signs are stable. PHYSICAL EXAM: VITAL SIGNS: Reviewed. GENERAL: Well-developed in no acute distress. NECK: Supple. No JVD or thyromegaly LUNGS: Respirations even and unlabored. Lungs essentially clear to auscultation bilaterally. HEART: Regular rate and rhythm. S1 and S2 heard. EXTREMITIES: Normal range of motion. No clubbing or cyanosis. Peripheral pulses intact. No lower extremity edema ASSESSMENT: 1. Noncardiac chest pain only lasting for 2-3 seconds, maybe musculoskeletal 2. Abdominal pain with diarrhea likely related to her history of colitis 3. Hyperlipidemia 4. Asymptomatic sinus bradycardia PLAN: Continue current cardiac medications 2-D echo ordered. Await results If no significant abnormalities noted on echocardiogram, the patient may be discharged home today from a cardiac standpoint Nurse practitioner note has been reviewed by physician. Signing provider agrees with the documented findings, assessment, and plan of care. Objective - Vital Signs Vital signs: Vital Signs Temp 97.9 F 10/30/21 07:00 Pulse 64 10/30/21 07:00 Resp 18 10/30/21 09:55 BP 150/72 10/30/21 07:00 Pulse Ox 98 10/30/21 07:00 Intake & Output 10/29/21 10/30/21 10/30/21 18:59 06:59 18:59 Intake Total 240 Output Total 0 Balance 240 0 Intake: Oral 240 Output: Emesis 0 Other: Voiding Method Toilet Toilet Toilet # Voids 3 2 # Bowel Movements 0 0 - Labs CBC & Chem 7: 10/28/21 17:10 10/28/21 17:10
[2021-10-30] MEDS: ESTROGENS, CONJUGATED 0.3 MG TAB PO SCH (10:43)
--- NOTE | 2021-10-30 18:35 | ECHOF ---
Referral Reason:re: CP MEASUREMENTS -------- HEIGHT: 152.4 cm WEIGHT: 65.8 kg BP: 149/67 RVIDd: 2.8 cm (< 3.3) IVSd: 1.0 cm (0.6 - 1.1) LVIDd: 4.3 cm (3.9 - 5.3) LVPWd: 1.0 cm (0.6 - 1.1) IVSs: 1.4 cm LVIDs: 2.3 cm LVPWs: 1.9 cm LA Diam: 3.7 cm (2.7 - 3.8) LAESV Index (A-L): 19.65 ml/m Ao Diam: 2.8 cm (2.0 - 3.7) AV Cusp: 1.9 cm (1.5 - 2.6) MV EXCURSION: 12.396 mm (> 18.000) MV EF SLOPE: 15 mm/s (70 - 150) EPSS: 0.3 cm MV E Han: 0.71 m/s MV DecT: 232 ms MV A Han: 1.04 m/s MV E/A Ratio: 0.69 FINDINGS -------- Sinus rhythm. This was a technically adequate study. The left ventricular size is normal. Left ventricular wall thickness is normal. Overall left vent ricular systolic function is normal with, an EF between 55 - 60 %. The right ventricle is normal in size. Normal LA size by volume 22+/-6 ml/m2. The right atrial size is normal. Interatrial and interventricular septum intact. The aortic valve is trileaflet, and appears structurally normal. No aortic stenosis or regurgitation. The mitral valve is normal. Mild mitral regurgitation is present. The tricuspid valve appears structurally normal. Unable to estimate RVSP due to inadequate TR jet s pectral doppler profile. There is no pulmonic regurgitation present. The aortic root size is normal. Normal inferior vena cava with normal inspiratory collapse consistent with estimated right atrial pre ssure of 5 mmHg. There is no pericardial effusion. CONCLUSIONS -------- 1. The left ventricular size is normal. 2. Left ventricular wall thickness is normal. 3. Overall left ventricular systolic function is normal with, an EF between 55 - 60 %. 4. Normal LA size by volume 22+/-6 ml/m2. 5. The aortic valve is trileaflet, and appears structurally normal. No aortic stenosis or regurgitati on. 6. Mild mitral regurgitation is present. 7. There is no pericardial effusion. ONLINE AFFILIATE MARKETING MANAGER: MAX Prakash
[2021-10-30] MEDS: ZOLPIDEM 5 MG TAB PO SCH (20:20)
[2021-10-30] MEDS: ATORVASTATIN 20 MG TAB PO SCH (20:20)
[2021-10-31] MEDS: HYDROmorphone 1 MG/ML 1 ML SYRINGE IVP PRN ×3 (00:34→13:33)
--- NOTE | 2021-10-31 08:05 | US ---
EXAMINATION TYPE: US abdomen complete DATE OF EXAM: 10/31/2021 COMPARISON: CT 07/05/2021 CLINICAL HISTORY: abd pain. generalized abdominal pain EXAM MEASUREMENTS: Liver Length: 12.7 cm Gallbladder Wall: Surgically absent CBD: 0.6 cm Spleen: 9.3 cm Right Kidney: 10.1 x 4.3 x 5.1 cm Left Kidney: 10.1 x 4.3 x 4.4 cm Technically difficult study. Pancreas: not well visualized due to midline bowel gas Liver: difficult to penetrate Gallbladder: Surgically absent CBD: wnl Spleen: wnl Right Kidney: No hydronephrosis or masses seen Left Kidney: No hydronephrosis or masses seen Upper IVC: wnl Abd Aorta: wnl Visualized pancreas is unremarkable. Visualized liver is heterogeneously hyperechoic. Evaluation for focal masses suboptimal due to the heterogeneity. Finding felt in basis of diffuse fatty infiltration similar to prior. No biliary dilatation noted. Poor visualization of right kidney which is normal in size without hydronephrosis. Bladder surgically absent.. Similar appearance to the left kidney. Sple en is nonenlarged. No aneurysmal change of visualized abdominal aorta IMPRESSION: No acute findings are evident.
[2021-10-31] MEDS: methylPREDNISolone SOD SUCCI 40 MG/ML 1 ML VIAL IV SCH ×2 (08:37→16:55)
[2021-10-31 08:38] VITALS: RESP 18
[2021-10-31] MEDS: DIVALPROEX SPRINKLE 125 MG CAP.SPRINK PO SCH (08:38)
[2021-10-31] MEDS: ESTROGENS, CONJUGATED 0.3 MG TAB PO SCH (08:38)
[2021-10-31] MEDS: PANTOPRAZOLE 40 MG TABLET PO SCH ×2 (08:38→16:56)
[2021-10-31] MEDS: metroNIDAZOLE-NS PMX 500 MG in SALINE 1 100ML.BAG IVPB SCH ×2 (08:39→16:56)
--- NOTE | 2021-10-31 10:31 | P.PN ---
Subjective Progress Note Date: 10/31/21 HISTORY OF PRESENT ILLNESS: Patient is a pleasant 66-year-old female with history of colitis, hyperlipidemia, hypothyroidism who presents secondary to abdominal pain and diarrhea. She states she does have a history of colitis with similar episodes in the past. She denies any hematochezia or melena. She states also over the last 2 days she has been having a achy feeling in the chest which only last for 2-3 seconds and goes away. She states currently it has improved. There is no association with any movement or exertion. No associated diaphoresis or lightheadedness. Telemetry reviewed without any PVCs or arrhythmias noted. She did see a box spinner proximally 3-4 years ago with relatively normal workup at that time. EKG performed shows normal sinus rhythm, no significant ST or T wave abnormalities. Blood work with normal troponins 3. 10/30/2021 Patient examined this morning at the bedside. Patient denies chest pain or pressure. She denies shortness of breath. Patient states her diarrhea has resolved. She also reports improvement in her abdominal pain. Vital signs are stable. 10/31/2021 Patient examined this morning at the bedside. Patient denies chest pain or pressure. She denies shortness of breath. She reports abdominal pain. She states she began having diarrhea again yesterday which has continued today. Echocardiogram completed revealing ejection fraction 55-60% with mild mitral regurgitation. PHYSICAL EXAM: VITAL SIGNS: Reviewed. GENERAL: Well-developed in no acute distress. NECK: Supple. No JVD or thyromegaly LUNGS: Respirations even and unlabored. Lungs essentially clear to auscultation bilaterally. HEART: Regular rate and rhythm. S1 and S2 heard. EXTREMITIES: Normal range of motion. No clubbing or cyanosis. Peripheral pulses intact. No lower extremity edema ASSESSMENT: 1. Noncardiac chest pain only lasting for 2-3 seconds, maybe musculoskeletal 2. Abdominal pain with diarrhea 3. Hyperlipidemia 4. Asymptomatic sinus bradycardia 5. History of colitis 6. Acute C. diff PLAN: Continue current cardiac medications Patient is currently stable from a cardiac perspective. No further inpatient recommendations from a cardiac standpoint We will sign off. Please reconsult if needed Nurse practitioner note has been reviewed by physician. Signing provider agrees with the documented findings, assessment, and plan of care. Objective - Vital Signs Vital signs: Vital Signs Temp 97.7 F 10/31/21 07:00 Pulse 69 10/31/21 07:00 Resp 18 10/31/21 07:00 BP 139/65 10/31/21 07:00 Pulse Ox 98 10/31/21 07:00 Intake & Output 10/30/21 10/31/21 10/31/21 18:59 06:59 18:59 Intake Total 59 Balance 59 Intake: Oral 59 Other: Voiding Method Toilet Toilet # Voids 1 1 - Labs CBC & Chem 7: 10/28/21 17:10 10/28/21 17:10 Labs: Abnormal Lab Results - Last 24 Hours (Table) 10/31/21 Range/Units 03:20 C. difficile (EIA) Intrp Positive A (Negative)
[2021-10-31 10:59] LABS: Basophils # (A) 0.01 X 10*3/uL (0.00-0.10); Basophils % (A) 0.1 %; Eosinophils # (A) 0 X 10*3/uL (0.04-0.35); Eosinophils % (A) 0 %; HCT 40.1 % (37.2-46.3); HGB 13.9 g/dL (12.0-15.0); Immature Grans, Automated 0.7 %; Lymphocytes # (A) 1.85 X 10*3/uL (0.90-5.00); Lymphocytes % (A) 11.3 %; MCH 32.3 pg (27.0-32.0); MCHC 34.7 g/dL (32.0-37.0); MCV 93.3 fL (80.0-97.0); Mean Platelet Volume 10.8 fL (9.5-12.2); Monocytes # (A) 0.37 X 10*3/uL (0.20-1.00); Monocytes % (A) 2.3 %; NRBC Per 100 WBC 0 /100 WBCS (0.0-0.0); Neutrophils # (A) 13.96 X 10*3/uL (1.80-7.70); Neutrophils % (A) 85.6 %; Platelet Count 357 X 10*3/uL (140-440); RDW 13.4 % (11.5-14.5)
[2021-10-31 11:20] LABS: African American GFR (CKD) 116.2 (60.0-200.0); Albumin 4.1 g/dL (3.8-4.9); Albumin/Globulin Ratio 1.83 (1.60-3.17); Anion Gap 11.8 mmol/L (10.00-18.00); BUN/Creat Ratio 18.65 Ratio (12.00-20.00); Blood Urea Nitrogen 9.9 mg/dL (9.0-27.0); Carbon Dioxide 24.1 mmol/L (20.0-27.5); Globulin 2.2 g/dL (1.6-3.3); Non-African American GFR(CKD) 100.2 (60.0-200.0); Total Bilirubin 0.2 mg/dL (0.30-1.20); Total Protein 6.3 g/dL (6.2-8.2)
[2021-10-31 14:03] VITALS: BMI 28.3
--- NOTE | 2021-10-31 15:07 | P.GSCN ---
History of Present Illness Consult date: 10/31/21 History of present illness: CHIEF COMPLAINT: Abdominal pain with diarrhea HISTORY OF PRESENT ILLNESS: This is a 66-year-old female who presented to the hospital with complaints of abdominal pain and diarrhea for the past 5 days. She reports the abdominal pain was very severe located in the mid abdomen and radiated to her back. She also reports a headache. She believes that she has been on antibiotics recently for her colitis. She had an abdominal ultrasound completed which was negative. In December 2020 patient had colonoscopy which had revealed hemorrhoids and diverticulosis no evidence of GI bleed. Past surgical history includes hemorrhoidectomy cholecystectomy and hysterectomy. Patient was found to have evidence of C. diff colitis. She is currently on IV Flagyl. Patient seen and examined with Dr. torres PAST MEDICAL HISTORY: Diverticulitis, hyperlipidemia, osteoarthritis, thyroid disorder, migraine headaches, hemorrhoids, anxiety and depression PAST SURGICAL HISTORY: Back Surgery, Cholecystectomy, Hysterectomy, Orthopedic Surgery MEDICATIONS: See list. ALLERGIES: See list. SOCIAL HISTORY: No illicit drug use. REVIEW OF SYSTEMS: CONSTITUTIONAL: Denies fever or chills. HEENT: Denies blurred vision, vision changes, or eye pain. Denies hemoptysis CARDIOVASCULAR: Denies chest pain or pressure. RESPIRATORY: No shortness of breath. GASTROINTESTINAL: See HPI for pertinent findings HEMATOLOGIC: Denies bleeding disorders. GENITOURINARY: Denies any blood in urine or increased urinary frequency. SKIN: Denies pruitis. Denies rash. PHYSICAL EXAM: VITAL SIGNS: Reviewed GENERAL: Well-developed in no acute distress. HEENT: No sclera icterus. Extraocular movements grossly intact. Moist buccal mucosa. Head is atraumatic, normocephalic. No nasal drainage. ABDOMEN: Soft. Nondistended. Diffuse abdominal tenderness NEUROLOGIC: Alert and oriented. Cranial nerves II through XII grossly intact. LABORATORY DATA: WBC up from 9.1 to 16.30 hemoglobin 13.9 platelets 357 Sodium 142 potassium 4.0 creatinine 0.5 LFTs normal Troponins negative 3 lipase 56 Stool for C. diff positive COVID-19 not detected IMAGING: Abdominal ultrasound no acute findings evident. ASSESSMENT: 1. Abdominal pain with diarrhea likely secondary to C. diff colitis 2. Chest pain being evaluated by cardiology PLAN: -Continue treatment for C. diff colitis -Continue clear liquid diets -Continue supportive care -No surgical intervention planned -Continue medical management Thank you for this consultation Physician Water Conservationist note has been reviewed by physician. Signing provider agrees with the documented findings, assessment, and plan of care. Past Medical History Past Medical History: Asthma, Hyperlipidemia, Osteoarthritis (OA), Thyroid Disorder Additional Past Medical History / Comment(s): takes depakote for migraine headaches, hemmorhoids, nerve pain, diverticulitus History of Any Multi-Drug Resistant Organisms: None Reported Past Surgical History: Back Surgery, Cholecystectomy, Hysterectomy, Orthopedic Surgery Additional Past Surgical History / Comment(s): back surg. x2, lumbar fusion, left shoulder rotator cuff Past Anesthesia/Blood Transfusion Reactions: Postoperative Nausea & Vomiting (PONV) Past Psychological History: Anxiety, Depression Smoking Status: Current some day smoker Past Alcohol Use History: None Reported Past Drug Use History: None Reported - Past Family History Mother Family Medical History: Cancer Additional Family Medical History / Comment(s): brain Medications and Allergies Home Medications Medication Instructions Recorded Confirmed Type Zolpidem Tartrate [Ambien Cr] 12.5 mg PO HS 01/22/15 10/28/21 History Estrogens, Conjugated [Premarin] 0.3 mg PO DAILY 09/03/16 10/28/21 History HYDROcodone/APAP 7.5-325MG [[place] 1 tab PO BID PRN 09/03/16 10/28/21 History 7.5-325] Morphine Sulfate ER [Ms Contin] 30 mg PO BID PRN 09/03/16 10/28/21 History Atorvastatin [Lipitor] 20 mg PO HS 12/19/20 10/28/21 History Levothyroxine Sodium [Synthroid] 100 mcg PO DAILY 12/19/20 10/28/21 History Dicyclomine [Bentyl] 20 mg PO TID PRN #20 tablet 05/13/21 10/28/21 Rx Divalproex Sodium [Depakote] 125 mg PO DAILY 05/13/21 10/28/21 History Pantoprazole [Protonix] 40 mg PO AC-BID #60 tab 07/08/21 10/28/21 Rx busPIRone HCl [Buspar] 10 mg PO BID PRN 10/28/21 10/28/21 History hydrOXYzine HCL [Atarax] 10 mg PO TID PRN 10/28/21 10/28/21 History Allergies Allergy/AdvReac Type Severity Reaction Status Date / Time Iodinated Contrast Media Allergy Rash/Hives/ Verified 10/28/21 21:36 [Iodinated Contrast Media - Swelling Oral and] Surgical - Exam Vital Signs Temp Pulse Resp BP Pulse Ox 97.6 F 64 18 148/76 95 10/28/21 14:47 10/28/21 14:47 10/28/21 14:47 10/28/21 14:47 10/28/21 14:47 Results - Labs 10/31/21 07:06 10/31/21 07:06 Abnormal Lab Results - Last 24 Hours (Table) 10/31/21 Range/Units 03:20 C. difficile (EIA) Intrp Positive A (Negative)
[2021-10-31 15:55] VITALS: BP 151/70; PULSE 98; TEMP 97.4
== END 2021-10-31 18:58 | disposition home or self-care (01) | DRG 373 ==
LOC: EC 14:36 → 6NMEDSUR 22:22 → OBSVTOIN 10-31 07:47
PROVIDERS: ADMIT Family Medicine; ATTEND Family Medicine
DX: A04.72 Enterocolitis due to Clostridium difficile, not specified as recurrent (principal); E03.9 Hypothyroidism, unspecified; Z20.822 Contact with and (suspected) exposure to COVID-19; R07.89 Other chest pain; J45.909 Unspecified asthma, uncomplicated; M19.90 Unspecified osteoarthritis, unspecified site; G43.909 Migraine, unspecified, not intractable, without status migrainosus; I34.0 Nonrheumatic mitral (valve) insufficiency; E78.5 Hyperlipidemia, unspecified; R00.1 Bradycardia, unspecified; F17.210 Nicotine dependence, cigarettes, uncomplicated; Z79.890 Hormone replacement therapy; Z79.899 Other long term (current) drug therapy; Z90.49 Acquired absence of other specified parts of digestive tract; Z90.710 Acquired absence of both cervix and uterus; Z91.041 Radiographic dye allergy status; Z87.19 Personal history of other diseases of the digestive system
CPT/HCPCS: 36415; 71046; 76700; 80053; 81001; 83690; 84484; 85025; 87324; 87635; 93005; 93306; 96361; 96374; 96375; 96376; 99285

== ENCOUNTER 2022-07-02 10:39 | Day surgery (SDC) | payer MEDICARE, OTHER ==
[~2022-07-02 10:39] MED LIST changes: -ACETAMINOPHEN TAB 500 MG TAB PO PRN; -DEXAMETHASONE SOD PHOSPHATE 4 MG/ML 1 ML VIAL IV ONE; -HEPARIN SODIUM,PORCINE/PF 5,000 UNIT/0.5 ML SYRINGE SQ PRN; -HYDROmorphone 0.5 MG/0.5 ML SYRINGE IVP PRN; +LIDOCAINE 1% (10MG/ML) FOR IV START INTRADERMA PRN; -MIDAZOLAM 2 MG/2 ML VIAL IV PRN; -ONDANSETRON 4 MG/2 ML VIAL IVP ONE; -Pre Op ABX Message 1 EACH MISC MISCELLANE ONE; -SCOPOLAMINE 1.5MG/72HR PATCH TRANSDERM ONE
[2022-07-02 11:11] VITALS: TEMP 98
[2022-07-02] MEDS ORDERED: MIDAZOLAM 2 MG/2 ML VIAL IVP ONE (11:24)
[2022-07-02] MEDS ORDERED: GLYCOPYRROLATE 0.2 MG/ML 2 ML VIAL ONE (11:42)
[2022-07-02] MEDS ORDERED: PROPOFOL 10 MG/ML 20 ML VIAL IV ONE (11:42)
--- NOTE | 2022-07-02 11:46 | P.GSHP ---
History of Present Illness H&P Date: 07/02/22 Chief Complaint: Diarrhea This is a 67-year-old female presents today for colonoscopy patient's issues with diarrhea and abdominal pain. She presents for colonoscopy tonight for possible colitis. Past Medical History Past Medical History: Asthma, Hyperlipidemia, Osteoarthritis (OA), Thyroid Disorder Additional Past Medical History / Comment(s): takes depakote for migraine headaches, hemorrhoids, nerve pain, diverticulitis, recent colitis flare up, frequent diarrhea History of Any Multi-Drug Resistant Organisms: None Reported Past Surgical History: Back Surgery, Cholecystectomy, Hysterectomy, Orthopedic Surgery Additional Past Surgical History / Comment(s): back surg. x2, lumbar fusion, left shoulder rotator cuff Past Anesthesia/Blood Transfusion Reactions: Postoperative Nausea & Vomiting (PONV) Smoking Status: Current every day smoker - Past Family History Mother Family Medical History: Cancer Additional Family Medical History / Comment(s): brain Medications and Allergies Home Medications Medication Instructions Recorded Confirmed Type Estrogens, Conjugated [Premarin] 0.3 mg PO HS 09/03/16 07/02/22 History HYDROcodone/APAP 7.5-325MG [[place] 1 tab PO BID PRN 09/03/16 07/02/22 History 7.5-325] Morphine Sulfate ER [Ms Contin] 30 mg PO Q12H 09/03/16 07/02/22 History Atorvastatin [Lipitor] 20 mg PO HS 12/19/20 07/02/22 History Levothyroxine Sodium [Synthroid] 100 mcg PO DAILY 12/19/20 07/02/22 History Dicyclomine [Bentyl] 20 mg PO TID PRN #20 tablet 05/13/21 07/02/22 Rx Divalproex Sodium [Depakote] 125 mg PO DAILY 05/13/21 07/02/22 History busPIRone HCl [Buspar] 10 mg PO BID 10/28/21 07/02/22 History Meloxicam [Mobic] 7.5 mg PO DAILY 06/29/22 07/02/22 History Rifaximin [Xifaxan] 550 mg PO TID 06/29/22 07/02/22 History Zolpidem Tartrate [Ambien Cr] 12.5 mg PO HS PRN 06/29/22 07/02/22 History clonazePAM [KlonoPIN] 0.5 mg PO BID PRN 06/29/22 07/02/22 History Allergies Allergy/AdvReac Type Severity Reaction Status Date / Time Iodinated Contrast Media Allergy Rash/Hives/ Verified 07/02/22 11:07 [Iodinated Contrast Media - Swelling Oral and] Surgical - Exam Vital Signs Temp Pulse Resp BP Pulse Ox 98.0 F 61 18 186/77 99 07/02/22 11:10 07/02/22 11:10 07/02/22 11:10 07/02/22 11:10 07/02/22 11:10 - General well developed, well nourished, no distress - Eyes PERRL - ENT normal pinna - Neck no masses - Respiratory normal expansion - Cardiovascular Rhythm: regular - Abdomen Abdomen: soft, non tender Assessment and Plan Assessment: Diarrhea possible colitis. We'll perform colonoscopy.
--- NOTE | 2022-07-02 12:00 | P.OP ---
Date of Procedure: 07/02/22 Preoperative Diagnosis: Diarrhea Postoperative Diagnosis: Diverticulosis Procedure(s) Performed: Colonoscopy Anesthesia: MAC Surgeon: Wilmar Rodriguez Pathology: other (Rectum) Condition: stable Disposition: PACU Description of Procedure: The patient's placed on the endoscopy table in the lateral position. She received IV sedation. Digital rectal exam was performed. This revealed a few external hemorrhoids. The flexible colonoscope was then placed patient anus and passed throughout the entire colon. The ileocecal valve was visualized. Cecum, ascending and transverse colon appeared normal. The descending and sigmoid colon had mild diverticular changes. The scope was brought back the rectum and this appeared normal. Due to the patient's symptoms of diarrhea a biopsies rectal was performed. Scope withdrawn for patient.
[2022-07-02 12:35] VITALS: BP 161/80; PULSE 69; RESP 16
== END 2022-07-02 13:01 | disposition home or self-care (01) ==
LOC: ORWHC2ENDO 10:39
PROVIDERS: ATTEND Surgery
DX: K57.30 Diverticulosis of large intestine without perforation or abscess without bleeding (principal); R19.7 Diarrhea, unspecified; E78.5 Hyperlipidemia, unspecified; J45.909 Unspecified asthma, uncomplicated; M19.90 Unspecified osteoarthritis, unspecified site; Z79.1 Long term (current) use of non-steroidal anti-inflammatories (NSAID); Z87.19 Personal history of other diseases of the digestive system; Z90.49 Acquired absence of other specified parts of digestive tract; Z91.048 Other nonmedicinal substance allergy status; F17.210 Nicotine dependence, cigarettes, uncomplicated; Z79.890 Hormone replacement therapy; Z79.51 Long term (current) use of inhaled steroids; Z79.899 Other long term (current) drug therapy
CPT/HCPCS: 88305; 45380; J2250; J2704

== ENCOUNTER → 2022-07-28 | Outpatient (CLI) | payer MEDICARE, OTHER ==
--- NOTE | 2022-07-28 13:40 | MR ---
EXAMINATION TYPE: MR brain wo con DATE OF EXAM: 07/28/2022 12:48 PM COMPARISON: NONE HISTORY: MIGRAINE WITHOUT AURO FINDINGS: The ventricles, basal cisterns and sulci overlying the cerebral convexities are mildly enlarged. There is evidence of mild periventricular white matter ischemic demyelination. Remote deep white matter insults are also noted. No acute edema is seen on diffusion weighted imaging. There is no evidence for midline shift or mass effect. Acute intracranial hemorrhage or extra-axial collection is not evident. The paranasal sinuses and mastoid air cells are well-aerated. IMPRESSION: Age-related atrophic and chronic small vessel ischemic change. No acute intracranial process at this time.
--- NOTE | 2022-07-28 13:43 | MR ---
EXAMINATION TYPE: MR angio head wo con DATE OF EXAM: 07/28/2022 12:48 PM COMPARISON: NONE HISTORY: MIGRAINE WITHOUT AURO Three-dimensional [id number] intracranial MRA was performed with multiple intensity projection im ages submitted and source data reviewed at the workstation. The vertebrobasilar system as well as intracranial portions of the internal carotid arteries and thei r major tributaries are patent. I do not see evidence for sizable aneurysm or vascular malformation. IMPRESSION: Normal study.
== END | disposition home or self-care (01) ==
LOC: RADMRIMAIN 11:58
PROVIDERS: ATTEND Psychiatry & Neurology Neurology
DX: G43.009 Migraine without aura, not intractable, without status migrainosus (principal); G31.1 Senile degeneration of brain, not elsewhere classified; I67.82 Cerebral ischemia
CPT/HCPCS: 70544; 70551

== ENCOUNTER → 2022-08-06 | Outpatient (CLI) | payer MEDICARE, OTHER ==
--- NOTE | 2022-08-06 13:40 | MR ---
EXAMINATION TYPE: MR knee LT wo con DATE OF EXAM: 08/06/2022 COMPARISON: None HISTORY: LEFT KNEE PAIN TECHNIQUE: Multiplanar, multisequence imaging of the left knee is performed without IV contrast. FINDINGS: MEDIAL MENISCUS: Anterior and posterior horns are intact without tear. LATERAL MENISCUS: Anterior and posterior horns are intact without tear. CRUCIATE LIGAMENTS: The anterior and posterior cruciate ligaments are intact and unremarkable. COLLATERAL LIGAMENTS: The medial collateral ligament and lateral collateral ligament complex are inta ct and unremarkable. EXTENSOR MECHANISM: Visualized quadriceps and patellar tendons are intact. EFFUSION: No significant suprapatellar joint effusion. POPLITEAL CYST: No popliteal/chance cyst. TRICOMPARTMENT SPACES: There is mild narrowing of the lateral left tibiofemoral joint space. The medi al tibiofemoral joint space and patellofemoral joint spaces are intact. CARTILAGE: There is a small cartilaginous defect lateral femoral condyle measuring 2 mm. BONE MARROW SIGNAL: No focal abnormal marrow signal is appreciated. OTHER: No additional significant abnormality is appreciated. IMPRESSION: There is a small cartilaginous defect lateral femoral condyle measuring 2 mm.
== END | disposition home or self-care (01) ==
LOC: RADMRIMAIN 12:52
PROVIDERS: ATTEND Orthopaedic Surgery
DX: M94.8X8 Other specified disorders of cartilage, other site (principal); M25.562 Pain in left knee

== ENCOUNTER → 2022-09-07 | Outpatient (CLI) | payer MEDICARE, OTHER ==
[2022-09-07 12:22] LABS: African American GFR (CKD) >90 (>60 ml/min/1.73 sqM); Blood Urea Nitrogen 18 mg/dL (7-17); Non-African American GFR(CKD) 84 (>60 ml/min/1.73 sqM)
--- NOTE | 2022-09-07 13:12 | CT ---
EXAMINATION TYPE: CT abdomen pelvis w con DATE OF EXAM: 09/07/2022 COMPARISON: 07/05/2021 HISTORY: Abdominal pain, hx diverticulitis CT DLP: 452.20 mGycm CONTRAST: CT scan of the abdomen and pelvis is performed with Oral Contrast and with IV Contrast, patient injec rajan with 70 mL of Isovue 300. FINDINGS: LUNG BASES-: No visible nodule. No infiltrate. LIVER/GB: The gallbladder surgically absent. No space occupying hepatic lesion. Biliary tree is of normal caliber. PANCREAS: No inflammation. No distinct mass. SPLEEN: No splenic enlargement. No lesion seen. ADRENALS: No nodule. No thickening. KIDNEYS/BLADDER: No hydronephrosis. No nephrolithiasis. No distinct renal mass. Urinary bladder g rossly unremarkable. BOWEL: Normal appendix. Normal bowel caliber. No inflammation. Sigmoid diverticulosis without diver ticulitis. GENITAL ORGANS: No gross abnormality. LYMPH NODES: No greater than 1cm abdominal or pelvic lymph nodes are appreciated. AORTA: No significant abnormality. OSSEOUS STRUCTURES: Postoperative changes of fusion and lumbar spine. OTHER: No significant addition al abnormality is seen. IMPRESSION: 1. Sigmoid diverticulosis without diverticulitis.
== END | disposition home or self-care (01) ==
LOC: RADCTMAIN 11:22
PROVIDERS: ATTEND Surgery
DX: K57.33 Diverticulitis of large intestine without perforation or abscess with bleeding (principal); K57.30 Diverticulosis of large intestine without perforation or abscess without bleeding
CPT/HCPCS: 82565; 84520; 74177; 36415; Q9967

== ENCOUNTER 2022-10-13 19:43 | Emergency (ER) | payer MEDICARE, OTHER ==
[2022-10-13 19:59] VITALS: RESP 16; TEMP 97.4
[2022-10-13 20:20] LABS: Glucose,Whole Blood 100 mg/dL (70-110)
[2022-10-13] MEDS ORDERED: diphenhydrAMINE 50 MG/ML 1 ML VIAL IVP STA (21:05)
[2022-10-13] MEDS ORDERED: SODIUM CHLORIDE 0.9% 1,000 ML IV STA (21:05)
[2022-10-13] MEDS ORDERED: KETOROLAC 15 MG/ML 1 ML VIAL IVP STA (21:06)
--- NOTE | 2022-10-13 21:10 | ED ---
Nausea/Vomiting/Diarrhea HPI - General Chief complaint: Nausea/Vomiting/Diarrhea Stated complaint: Shoulder/Back Pain/Nausea Time Seen by Provider: 10/13/22 20:53 Source: patient, RN notes reviewed, old records reviewed Mode of arrival: EMS Limitations: no limitations - History of Present Illness Initial comments: 67-year-old female presents to the emergency room with complaints of nausea vomiting diarrhea or chills and body aches since . She is also complaining of a sore throat on the right side. She did call her primary care Dr. Diamond who prescribed her a Medrol Dosepak and azithromycin which she is not started taking. She states she is unable to because of her vomiting. She has vomited 5 or 6 times today all watery that she's not been able to eat. MD complaint: nausea, vomiting, diarrhea, other (sore throat and body aches, chills) -: days(s) (3) Description of Vomiting: watery Quality: aching Consistency: constant - Related Data Home Medications Medication Instructions Recorded Confirmed Estrogens, Conjugated [Premarin] 0.3 mg PO HS 09/03/16 10/13/22 HYDROcodone/APAP 7.5-325MG [[place] 1 tab PO BID PRN 09/03/16 10/13/22 7.5-325] Morphine Sulfate ER [Ms Contin] 30 mg PO Q12H 09/03/16 10/13/22 Atorvastatin [Lipitor] 20 mg PO HS 12/19/20 10/13/22 Levothyroxine Sodium [Synthroid] 100 mcg PO DAILY 12/19/20 10/13/22 Divalproex Sodium [Depakote] 125 mg PO DAILY 05/13/21 10/13/22 busPIRone HCl [Buspar] 10 mg PO BID 10/28/21 10/13/22 clonazePAM [KlonoPIN] 0.5 mg PO DAILY PRN 06/29/22 10/13/22 Azithromycin [Zithromax] 500 mg PO DAILY 10/13/22 10/13/22 Lisinopril-Hctz 20-12.5 mg 1 tab PO DAILY 10/13/22 10/13/22 [Zestoretic 20-12.5] Zolpidem [Ambien] 5 mg PO HS PRN 10/13/22 10/13/22 methylPREDNISolone Dose Pack See Taper PO DIRECTED 10/13/22 10/13/22 [Medrol Dose Pack] Previous Rx's Medication Instructions Recorded Dicyclomine [Bentyl] 20 mg PO TID PRN #20 tablet 05/13/21 Allergies Allergy/AdvReac Type Severity Reaction Status Date / Time Iodinated Contrast Media Allergy Rash/Hives/ Verified 10/13/22 21:43 [Iodinated Contrast Media - Swelling Oral and] Review of Systems ROS Statement: Those systems with pertinent positive or pertinent negative responses have been documented in the HPI. ROS Other: All systems not noted in ROS Statement are negative. Past Medical History Past Medical History: Asthma, Hyperlipidemia, Osteoarthritis (OA), Thyroid Disorder Additional Past Medical History / Comment(s): takes depakote for migraine headaches, hemorrhoids, nerve pain, diverticulitis, recent colitis flare up, frequent diarrhea History of Any Multi-Drug Resistant Organisms: None Reported Past Surgical History: Back Surgery, Cholecystectomy, Hysterectomy, Orthopedic Surgery Additional Past Surgical History / Comment(s): back surg. x2, lumbar fusion, left shoulder rotator cuff Past Anesthesia/Blood Transfusion Reactions: Postoperative Nausea & Vomiting (PONV) Past Psychological History: Anxiety, Depression Smoking Status: Current every day smoker Past Alcohol Use History: None Reported Past Drug Use History: None Reported - Past Family History Mother Family Medical History: Cancer Additional Family Medical History / Comment(s): brain General Exam Limitations: no limitations General appearance: alert, in no apparent distress Head exam: Present: atraumatic Eye exam: Absent: scleral icterus, conjunctival injection, periorbital swelling ENT exam: Present: mucous membranes moist Expanded Mouth exam: Present: tongue normal, tongue elevation. Absent: drooling, trismus, muffled voice Throat exam: tonsillar erythema. negative: tonsillar exudate, R peritonsillar mass, L peritonsillar mass Neck exam: Absent: tenderness, meningismus Respiratory exam: Present: normal lung sounds bilaterally. Absent: respiratory distress, accessory muscle use Cardiovascular Exam: Present: regular rate, normal rhythm GI/Abdominal exam: Present: soft. Absent: distended Extremities exam: Present: normal capillary refill Neurological exam: Present: alert, oriented X3 Psychiatric exam: Present: normal affect, normal mood Skin exam: Present: warm, dry, normal color. Absent: cyanosis, diaphoretic, petechiae, pallor Course Vital Signs 10/13/22 10/13/22 10/13/22 19:53 20:14 22:00 Temperature 97.4 F L Pulse Rate 87 85 60 Respiratory 16 16 16 Rate Blood Pressure 74/51 92/60 94/57 O2 Sat by Pulse 98 98 98 Oximetry 10/13/22 23:15 Temperature Pulse Rate 68 Respiratory 16 Rate Blood Pressure 145/68 O2 Sat by Pulse 98 Oximetry Medical Decision Making - Medical Decision Making Vital signs are stable, patient is afebrile. She was given IV fluids, Toradol and Benadryl for body aches and nausea and vomiting. No further vomiting in the emergency room. Labs show no evidence of leukocytosis. Electrolytes show acute kidney injury with a creatinine of 2.59. She is positive for coronavirus. Case discussed with Dr. Ca, Covid infection is likely the cause of her GERRY. She was given IV fluids in the emergency room. She was directed to follow-up with her primary care doctor Saturday for reevaluation and assessment of her kidney function. She was prescribed Medrol Dosepak and Z-Ricky by her primary care doctor. She was directed to take Medrol Dosepak. Self quarantine for 5 days from symptom onset. She is agreeable to this plan of care. History of asthma, hyperlipidemia, osteoarthritis, anxiety and depression and a smoker Was pt. sent in by a medical professional or institution? @ -no Did you speak to anyone other than the patient for history? @ -no Did you review nursing and triage notes? @ -yes i agree Were old charts reviewed? @ -no Differential Diagnosis? @ -Differential Weakness: Hypoglycemia, shock, sepsis, hyponatremia, anemia, infection, SD, adverse medicine reaction, viral illness, this is not meant to be an all-inclusive list. EKG interpreted by me (3pts min.)? @ -[none] X-rays interpreted by me (1pt min.)? @ -[none] CT interpreted by me (1pt min.)? @ -[none] U/S interpreted by me (1pt. min.)? @ -[none] What testing was considered but not performed? (CT, X-rays, U/S, labs)? Why? @ none What meds were considered but not given? Why? @ -none Did you discuss the management of the patient with other professionals? @ -no Did you reconcile home meds? @ -no Was smoking cessation discussed for >3mins.? @ -yes Was critical care preformed (if so, how long)? @ -no Were there social determinants of health that impacted care today? How? (Homelessness, low income, unemployed, alcoholism, drug addiction, transportation, low edu. Level, literacy, decrease access to med. care, usp, rehab)? @ -none Was there de-escalation of care discussed even if they declined? (Discuss DNR or withdrawal of care, Hospice)? @ -no What co-morbidities impacted this encounter? (DM, HTN, Smoking, COPD, CAD, Cancer, CVA, Hep., AIDS, mental health diagnosis, sleep apnea, morbid obesity)? @ -Asthma, hyperlipidemia, osteoarthritis, anxiety, depression, smoking Was patient admitted / discharged? @ -Discharged Undiagnosed new problem with uncertain prognosis? @ -[none] Drug Therapy requiring intensive monitoring for toxicity (Heparin, Nitro, Insulin, Cardizem)? @ -no Were any procedures done? @ -no Diagnosis/symptom? @ -Coronavirus, acute kidney injury Acute, or Chronic, or Acute on Chronic? @ -Acute Uncomplicated (without systemic symptoms) or Complicated (systemic symptoms)? @ -complicated Side effects of treatment? @ -[none] Exacerbation, Progression, or Severe Exacerbation] @ -[no] Poses a threat to life or bodily function? @ -[no] - Lab Data Result diagrams: 10/13/22 21:16 10/13/22 21:16 Lab Results 10/13/22 10/13/22 10/13/22 Range/Units 20:19 21:16 21:16 WBC 5.1 (3.8-10.6) k/uL RBC 5.00 (3.80-5.40) m/uL Hgb 15.7 (11.4-16.0) gm/dL Hct 46.1 H (34.0-46.0) % MCV 92.1 (80.0-100.0) fL MCH 31.3 (25.0-35.0) pg MCHC 34.0 (31.0-37.0) g/dL RDW 12.7 (11.5-15.5) % Plt Count 171 (150-450) k/uL MPV 8.7 Neutrophils % 39 % Lymphocytes % 50 % Monocytes % 8 % Eosinophils % 0 % Basophils % 1 % Neutrophils # 2.0 (1.3-7.7) k/uL Lymphocytes # 2.5 (1.0-4.8) k/uL Monocytes # 0.4 (0-1.0) k/uL Eosinophils # 0.0 (0-0.7) k/uL Basophils # 0.1 (0-0.2) k/uL Sodium 138 (137-145) mmol/L Potassium 4.1 (3.5-5.1) mmol/L Chloride 100 (98-107) mmol/L Carbon Dioxide 19 L (22-30) mmol/L Anion Gap 19 mmol/L BUN 39 H (7-17) mg/dL Creatinine 2.59 H (0.52-1.04) mg/dL Est GFR (CKD-EPI)AfAm 22 (>60 ml/min/1.73 sqM) Est GFR (CKD-EPI)NonAf 19 (>60 ml/min/1.73 sqM) Glucose 88 (74-99) mg/dL POC Glucose (mg/dL) 100 (70-110) mg/dL POC Glu Technical Lead ID Last Moseley Calcium 8.9 (8.4-10.2) mg/dL Total Bilirubin 0.6 (0.2-1.3) mg/dL AST 108 H (14-36) U/L ALT 86 H (4-34) U/L Alkaline Phosphatase 228 H (38-126) U/L Total Protein 7.2 (6.3-8.2) g/dL Albumin 4.4 (3.5-5.0) g/dL Amylase 69 (30-110) U/L Lipase 149 (23-300) U/L Influenza Type A (PCR) (Not Detectd) Influenza Type B (PCR) (Not Detectd) RSV (PCR) (Not Detectd) SARS-CoV-2 (PCR) (Not Detectd) 10/13/22 Range/Units 21:16 WBC (3.8-10.6) k/uL RBC (3.80-5.40) m/uL Hgb (11.4-16.0) gm/dL Hct (34.0-46.0) % MCV (80.0-100.0) fL MCH (25.0-35.0) pg MCHC (31.0-37.0) g/dL RDW (11.5-15.5) % Plt Count (150-450) k/uL MPV Neutrophils % % Lymphocytes % % Monocytes % % Eosinophils % % Basophils % % Neutrophils # (1.3-7.7) k/uL Lymphocytes # (1.0-4.8) k/uL Monocytes # (0-1.0) k/uL Eosinophils # (0-0.7) k/uL Basophils # (0-0.2) k/uL Sodium (137-145) mmol/L Potassium (3.5-5.1) mmol/L Chloride (98-107) mmol/L Carbon Dioxide (22-30) mmol/L Anion Gap mmol/L BUN (7-17) mg/dL Creatinine (0.52-1.04) mg/dL Est GFR (CKD-EPI)AfAm (>60 ml/min/1.73 sqM) Est GFR (CKD-EPI)NonAf (>60 ml/min/1.73 sqM) Glucose (74-99) mg/dL POC Glucose (mg/dL) (70-110) mg/dL POC Glu Technical Lead ID Calcium (8.4-10.2) mg/dL Total Bilirubin (0.2-1.3) mg/dL AST (14-36) U/L ALT (4-34) U/L Alkaline Phosphatase (38-126) U/L Total Protein (6.3-8.2) g/dL Albumin (3.5-5.0) g/dL Amylase (30-110) U/L Lipase (23-300) U/L Influenza Type A (PCR) Not Detected (Not Detectd) Influenza Type B (PCR) Not Detected (Not Detectd) RSV (PCR) Not Detected (Not Detectd) SARS-CoV-2 (PCR) Detected A (Not Detectd) Disposition Clinical Impression: COVID-19 Disposition: HOME SELF-CARE Condition: Good Instructions (If sedation given, give patient instructions): COVID-19 (Coronavirus Disease 2019) (ED) Additional Instructions: Increase your fluid intake. Take the Medrol Dosepak as prescribed by your primary care doctor. Self quarantine for 5 days from symptom onset and while symptomatic. Follow-up with your doctor next week and have lab work repeated to evaluate your kidney function which is elevated likely from Covid. Return to the emergency room with any new or concerning symptoms. Is patient prescribed a controlled substance at d/c from ED?: No Referrals: Isidro Diamond MD [Primary Care Provider] - 1-2 days Time of Disposition: 22:25
[2022-10-13 21:31] LABS: Basophils # (A) 0.1 k/uL (0-0.2); Basophils % (A) 1 %; Eosinophils % (A) 0 %; HCT 46.1 % (34.0-46.0); HGB 15.7 gm/dL (11.4-16.0); Lymphocytes # (A) 2.5 k/uL (1.0-4.8); Lymphocytes % (A) 50 %; MCH 31.3 pg (25.0-35.0); MCV 92.1 fL (80.0-100.0); Mean Platelet Volume 8.7; Monocytes # (A) 0.4 k/uL (0-1.0); Monocytes % (A) 8 %; Neutrophils % (A) 39 %; Platelet Count 171 k/uL (150-450); RDW 12.7 % (11.5-15.5); WBC 5.1 k/uL (3.8-10.6)
[2022-10-13 21:40] LABS: Albumin 4.4 g/dL (3.5-5.0); Calcium 8.9 mg/dL (8.4-10.2); Total Bilirubin 0.6 mg/dL (0.2-1.3); Total Protein 7.2 g/dL (6.3-8.2)
[2022-10-13 22:12] LABS: Potassium 4.1 mmol/L (3.5-5.1)
[2022-10-13] MEDS ORDERED: SODIUM CHLORIDE 0.9% 500 ML 500 ML IV ONE (22:23)
[2022-10-13 23:15] VITALS: BP 145/68; PULSE 68
== END 2022-10-13 23:15 | disposition home or self-care (01) ==
LOC: EC 19:43
DX: U07.1 COVID-19 (principal); J45.909 Unspecified asthma, uncomplicated; E78.5 Hyperlipidemia, unspecified; M19.90 Unspecified osteoarthritis, unspecified site; E07.9 Disorder of thyroid, unspecified; F41.9 Anxiety disorder, unspecified; F32.A Depression, unspecified; F17.200 Nicotine dependence, unspecified, uncomplicated; Z79.1 Long term (current) use of non-steroidal anti-inflammatories (NSAID); Z79.890 Hormone replacement therapy; Z79.899 Other long term (current) drug therapy; Z91.041 Radiographic dye allergy status
CPT/HCPCS: 36415; 80053; 82150; 83690; 85025; 87636; 99284; 96374; 96375; 96361; J1200; J1885

== ENCOUNTER 2023-03-05 05:48 | Day surgery (SDC) | payer MEDICARE, OTHER ==
[2023-02-28 14:53] VITALS: BMI 24.7
[~2023-03-05 05:48] MED LIST changes: +ACETAMINOPHEN TAB 500 MG TAB PO PRN; +HEPARIN SODIUM,PORCINE/PF 5,000 UNIT/0.5 ML SYRINGE SQ PRN; -LACTATED RINGERS 1,000 ML IV SCH; -LIDOCAINE 1% (10MG/ML) FOR IV START INTRADERMA PRN; +Pre Op ABX Message 1 EACH MISC MISCELLANE ONE
[2023-03-05] MEDS ORDERED: LACTATED RINGERS 1,000 ML IV SCH (06:03)
[2023-03-05] MEDS: DEXAMETHASONE SOD PHOSPHATE 4 MG/ML 1 ML VIAL IV ONE ×2 (06:29→06:45)
[2023-03-05] MEDS ORDERED: LIDOCAINE 1% (10MG/ML) FOR IV START INTRADERMA ONE ×2 (06:30→06:45)
[2023-03-05] MEDS: ONDANSETRON 4 MG/2 ML VIAL IVP ONE ×2 (06:30→06:45)
[2023-03-05] MEDS ORDERED: MIDAZOLAM 2 MG/2 ML VIAL IVP ONE (06:45)
[2023-03-05] MEDS ORDERED: NEOSTIGMINE 1 MG/ML 10 ML VIAL ONE (07:25)
[2023-03-05] MEDS ORDERED: PROPOFOL 10 MG/ML 20 ML VIAL IV ONE (07:25)
[2023-03-05] MEDS ORDERED: SUCCINYLCHOLINE CHLORIDE 200 MG/10 ML VIAL IV ONE (07:25)
[2023-03-05] MEDS ORDERED: PHENYLEPHRINE-0.9% NACL SYG 1,000 MCG/10 ML SYRINGE ONE (07:25)
[2023-03-05] MEDS ORDERED: fentaNYL (PF) 50 MCG/ML 2 ML AMP ONE (07:25)
[2023-03-05] MEDS ORDERED: ROCURONIUM 10 MG/ML (5 ML VIAL) IV ONE (07:25)
[2023-03-05] MEDS ORDERED: MIDAZOLAM 2 MG/2 ML VIAL ONE (07:25)
[2023-03-05] MEDS ORDERED: GLYCOPYRROLATE 0.2 MG/ML 2 ML VIAL ONE (07:25)
[2023-03-05] MEDS ORDERED: BUPIVACAINE (PF) 0.25% 30 ML VIAL SQ ONE (07:30)
[2023-03-05] MEDS ORDERED: SODIUM CHLORIDE 0.9% 50 ML with ceFAZolin 2,000 MG IV ONE ×2 (07:30)
--- NOTE | 2023-03-05 08:30 | P.OP ---
Date of Procedure: 03/05/23 Preoperative Diagnosis: Adhesions Postoperative Diagnosis: Adhesions Procedure(s) Performed: Laparoscopic lysis of adhesions Anesthesia: KYLER Surgeon: Wilmar Rodriguez Estimated Blood Loss (ml): 5 Pathology: none sent Condition: stable Disposition: PACU Description of Procedure: The patient was placed on the operating table in the supine position. She received general endotracheal tube anesthesia. Her abdomen was prepped and draped usual fashion. The patient evidence of a previous left paramedial midline scar. The skin incision sites were anesthetized 1% local Xylocaine. The skin was incised in the supraumbilical position. Then using a pair of Hannibal clamps the fascia was grasped. The Veress needle was positioned into the perineal cavity. Position of the Veress needle was confirmed with a positive drop test. The abdomen was insufflated. Adequate insufflation a 5 mm trocar was placed into the peritoneal cavity. The camera was then placed into the peritoneal Cavity. And then adhesions were noted in the left lower quadrant. Next a 5 mm trochars placed in the right upper quadrant right lateral position and right lower quadrant. The camera was then placed in the right mid abdomen position. And then using the Harmonic scissors the adhesions were lysed. Approximately 20 minutes of operative time used to lyse adhesions. There was no injury to the bowel. At this point the trochars withdrawn. The skin was closed interrupted 3-0 Monocryl suture. Derm abond was applied. Patient top she will was sent to recovery room in stable condition.
[2023-03-05 08:36] VITALS: TEMP 97
[2023-03-05] MEDS: HYDROmorphone 0.5 MG/0.5 ML SYRINGE IVP PRN ×3 (08:41→09:08)
[2023-03-05] MEDS ORDERED: LACTATED RINGERS 1,000 ML IV ONE (08:56)
[2023-03-05] MEDS ORDERED: MORPHINE SULFATE ER 30 MG TABLET PO STA (09:27)
[2023-03-05 09:30] VITALS: RESP 16
[2023-03-05 09:59] VITALS: BP 131/78; PULSE 58
== END 2023-03-05 10:32 | disposition home or self-care (01) ==
LOC: OR 05:48
PROVIDERS: ATTEND Surgery
DX: K56.51 Intestinal adhesions [bands], with partial obstruction (principal); I10 Essential (primary) hypertension; J44.9 Chronic obstructive pulmonary disease, unspecified; F17.210 Nicotine dependence, cigarettes, uncomplicated; Z91.041 Radiographic dye allergy status; Z79.899 Other long term (current) drug therapy
CPT/HCPCS: 44180; J2250; J0330; J1100; J2710; J2405; J0690; J3010; J2370; J2704; J1170; J1644

== ENCOUNTER → 2023-08-14 | Outpatient (CLI) | payer MEDICARE, OTHER ==
--- NOTE | 2023-08-14 09:14 | MM ---
Reason for Exam: Clinical finding. Last mammogram was performed 2 year(s) and 9 month(s) ago. Patient History: Menarche at age 15. First Full-Term at age 20. Left ovary removed at age 34. Right ovary removed at age 34. Hysterectomy at age 34. Postmenopausal. Currently using Estrogen, beginning at age 34 for 24 years. Risk Values: Ashley 5 year model risk: 1.2%. NCI Lifetime model risk: 4.4%. Prior Study Comparison: 09/07/2015 Right Diagnostic Mammogram, [facility]. 02/07/2018 Bilateral Screening Mammogram, [facility]. 02/27/2018 Right Diagnostic Mammogram, [facility]. 03/25/2019 Bilateral Screening Mammogram, [facility]. 10/26/2020 Bilateral Screening Mammogram, [facility]. Tissue Density: There are scattered fibroglandular densities. Findings: Analyzed By CAD. Left breast suspected mass in the retroareolar region 2.1 cm from nipple measuring 16 mm. Right breast: No new suspicious masses, calcifications or distortions. Overall Assessment: Incomplete: need additional imaging evaluation, BI-RAD 0 Management: Diagnostic Breast Ultrasound of the left breast. Results were given to the patient verbally at the time of exam. Patient should continue monthly self-breast exams. A clinical breast exam by your physician is recommended on an annual basis. This exam should not preclude additional follow-up of suspicious palpable abnormalities. Note on Ashley scores and lifetime risk: 1. A Ashley score greater than 3% is considered moderate risk. If this is the case, consider specialist referral to assess eligibility for a risk reducing agent. 2. If overall lifetime risk for the development of breast cancer is 20% or higher, the patient may qualify for future screening with alternating mammogram and breast MRI. Electronically signed and approved by: Chu Garcia DO
--- NOTE | 2023-08-14 09:29 | USB ---
Reason for Exam: Clinical finding. Patient History: Menarche at age 15. First Full-Term at age 20. Left ovary removed at age 34. Right ovary removed at age 34. Hysterectomy at age 34. Postmenopausal. Currently using Estrogen, beginning at age 34 for 24 years. Risk Values: Ashley 5 year model risk: 1.2%. NCI Lifetime model risk: 4.4%. Technique: Method: Targeted. Prior Study Comparison: 02/27/2018 Right Diagnostic Mammogram, [facility]. 03/25/2019 Bilateral Screening Mammogram, [facility]. 10/26/2020 Bilateral Screening Mammogram, [facility]. Findings: The area of palpable concern of the left breast, the lower outer quadrant of the left breast, the axilla of the left breast and the retroareolar of the left breast were scanned. Technique utilized:US breast limited LT Image; Ultrasound imaging of: All 4 quadrants, the retroareolar region and axilla. Mass at 4:00 to 2 cm from the nipple measuring 19 x 13 mm with irregular margins with posterior acoustic shadowing. This is followed and widened with predominantly hypoechoic appearance. Finding correlates of palpable abnormality. Overall Assessment: Highly suggestive of malignancy, BI-RAD 5 Management: Ultrasound Core Biopsy of the left breast. A clinical breast exam by your physician is recommended on an annual basis and results should be correlated with mammographic findings. This exam should not preclude additional follow-up of suspicious palpable abnormalities. Results were given to the patient verbally at the time of exam. Electronically signed and approved by: Chu Garcia DO
== END | disposition home or self-care (01) ==
LOC: RADMAMWWP 08:45
PROVIDERS: ATTEND Family Medicine
DX: R92.8 Other abnormal and inconclusive findings on diagnostic imaging of breast (principal); R92.323 Mammographic fibroglandular density, bilateral breasts; N63.20 Unspecified lump in the left breast, unspecified quadrant; Z78.0 Asymptomatic menopausal state
CPT/HCPCS: 77066; 76642; G0279; 77062

== ENCOUNTER → 2023-08-20 | Day surgery (SDC) | payer MEDICARE, OTHER ==
--- NOTE | 2023-09-02 09:45 | MM ---
Reason for Exam: Post Procedure Mammogram. Last screening mammogram was performed less than 1 month ago. Patient History: Menarche at age 15. First Full-Term at age 20. Left ovary removed at age 34. Right ovary removed at age 34. Hysterectomy at age 34. Postmenopausal. Currently using Estrogen, beginning at age 34 for 24 years. Risk Values: Ashley 5 year model risk: 1.2%. NCI Lifetime model risk: 4.4%. Prior Study Comparison: 03/25/2019 Bilateral Screening Mammogram, [facility]. 10/26/2020 Bilateral Screening Mammogram, [facility]. 08/14/2023 Left US breast limited LT, [facility]. 08/14/2023 Bilateral MG 3D diag mammo w/cad JELLY, [facility]. Tissue Density: Left: There are scattered fibroglandular densities. Pathology Description: Marker Left Behind. Needle Type: Mammotome Cores: 8 Gauge: 13 The procedure of ultrasound guided core biopsy was explained to the patient. Benefits, alternatives, and risks were discussed. An informed consent was then obtained. The patient was placed in supine positioning for imaging and for the procedure. The overlying skin was prepped and draped in usual sterile fashion. Lidocaine was used as anesthetic into the skin followed by 1% lidocaine/epinephrine into the subcutaneous tissue up to area of concern in the subareolar left breast. Under ultrasound guidance, initial attempts at sampling via the 13-gauge vacuum-assisted Mammotome Elite biopsy gun was unsuccessful. Subsequently, three 12-gauge cores were obtained with the vacuum-assisted Celero device. Following this, Hydromark coil clip was left in lesion. The patient tolerated the procedure well without any immediate complication. The patient was kept in the radiology department for short stay after the procedure and then discharged home in stable condition. Postprocedure mammogram: The patient was transferred to mammography for physician ordered post procedure mammogram for clip placement verification. Post procedure mammogram shows within the suspicious subareolar left breast mass. IMPRESSION: Successful, uncomplicated ultrasound guided core biopsy of the BI-RADS 5 subareolar left breast mass. Full pathology results to follow. Pathology Results: Result: Malignant, Invasive ductal carcinoma. LEFT BREAST, FOUR O'CLOCK, ULTRASOUND GUIDED NEEDLE CORE BIOPSY: Invasive moderately differentiated ductal carcinoma (Grade 2). See Surgical Pathology Cancer Case Summary. Overall Assessment: Malignant Assessment: MG diagnostic mammo LT wo CAD. - Left: Known biopsy proven malignancy, BI-RAD 6. Management: Surgical Consultation of the left breast. Electronically signed and approved by: Avila Meeks M.D. Radiologist
== END ==
LOC: RADUSWWP 12:39
PROVIDERS: ATTEND Surgery
DX: D05.12 Intraductal carcinoma in situ of left breast (principal); Z12.31 Encounter for screening mammogram for malignant neoplasm of breast
CPT/HCPCS: 88305; 88342; 88341; 77065; 19083; A4648

== ENCOUNTER → 2023-08-28 | Outpatient (CLI) | payer MEDICARE, OTHER ==
[2023-08-28 12:48] VITALS: BP 131/58; PULSE 59; RESP 17; TEMP 97.8
--- NOTE | 2023-08-28 13:15 | P.GSHP ---
History of Present Illness H&P Date: 08/28/23 Chief Complaint: Invasive ductal carcinoma left breast Radha is a 68-year-old white female seen in consultation for Dr. Diamond regarding the left breast invasive ductal carcinoma. She underwent a bilateral mammogram and [id number]. This revealed an area of concern in the left breast and an ultrasound was recommended. The ultrasound was performed on [id number]. This revealed a 19 x 14 mm lesion 2 cm from the nipple. An ultrasound core biopsy was performed on which revealed an invasive ductal carcinoma ER/AZ positive HER-2/james negative. Was able to feel a mass in her left breast for approximately 3 months. She is not complaining of any nipple discharge or skin changes. The left nipple is sore in her gann. She has never had any surgery on her breasts before. Is scheduled for surgery on Saturday on her rotater cuff, had surgery on her left rotater cuff Caffeine: pop occasional nicotine: 4/day, for about 20 years chocolate: occasional BCP: in the remote past for about 5 years Family History: sister: colon cancer mother: brain cancer Hormonal history: Menarche: 16 , breast fed: no, age at first : 20 menopause: 52 takes premarin since 52 Medical history: Back pain Surgical history: Left rotator cuff surgery Hysterectomy too ovaries; done for endometriosis Social History: nicotine: 4/day for 20 years alcohol: none drugs: none - Constitutional Constitutional: Reports sweats - EENT Eyes: bilateral blurred vision, denies pain Ears: bilateral: decreased hearing, deny: tinnitus Ears, nose, mouth and throat: Reports headache, Denies sore throat - Breasts Breasts: bilateral: as per HPI - Cardiovascular Cardiovascular: Denies chest pain, Denies shortness of breath - Respiratory Respiratory: Reports as per HPI - Gastrointestinal Comment: colitis, and diverticulitis Gastrointestinal: Denies abdominal pain, Denies diarrhea, Denies nausea, Denies vomiting - Genitourinary (Female) Genitourinary: Denies dysuria, Denies hematuria - Menstruation Menstruation: Reports post hysterectomy - Musculoskeletal Comment: arthritis Musculoskeletal: Reports myalgias - Integumentary Integumentary: Denies pruritus, Denies rash - Neurological Neurological: Denies numbness, Denies weakness - Psychiatric Psychiatric: Reports anxiety, Reports depression - Endocrine Endocrine: Reports fatigue, Denies weight change - Hematologic/Lymphatic Comment: none - Allergic/Immunologic Allergic/Immunologic: Reports seasonal allergies Past Medical History Past Medical History: Asthma, Hyperlipidemia, Hypertension, Osteoarthritis (OA), Thyroid Disorder Additional Past Medical History / Comment(s): takes depakote for migraine headaches, hemorrhoids, nerve pain, diverticulitis, colitis, frequent diarrhea History of Any Multi-Drug Resistant Organisms: None Reported Past Surgical History: Back Surgery, Cholecystectomy, Hysterectomy, Orthopedic Surgery Additional Past Surgical History / Comment(s): back surg. x2, lumbar fusion, left shoulder rotator cuff Past Anesthesia/Blood Transfusion Reactions: Postoperative Nausea & Vomiting (PONV) Past Psychological History: Anxiety, Depression Smoking Status: Current every day smoker Past Alcohol Use History: None Reported Additional Past Alcohol Use History / Comment(s): 6 cigs/day, not heavy, maybe for 20 yrs. Past Drug Use History: None Reported - Past Family History Mother Family Medical History: Cancer Additional Family Medical History / Comment(s): brain Sister(s) Family Medical History: Cancer Additional Family Medical History / Comment(s): PT WAS UNSURE OF ORIGIN Medications and Allergies Home Medications Medication Instructions Recorded Confirmed Type Estrogens, Conjugated [Premarin] 0.3 mg PO HS 09/03/16 08/28/23 History Morphine Sulfate ER [Ms Contin] 30 mg PO TID 09/03/16 08/28/23 History Atorvastatin [Lipitor] 20 mg PO HS 12/19/20 08/28/23 History Levothyroxine Sodium [Synthroid] 100 mcg PO DAILY 12/19/20 08/28/23 History Divalproex Sodium [Depakote] 125 mg PO DAILY 05/13/21 08/28/23 History busPIRone HCl [Buspar] 10 mg PO BID 10/28/21 08/28/23 History Lisinopril-Hctz 20-12.5 mg 1 tab PO HS 10/13/22 08/28/23 History [Zestoretic 20-12.5] Allergies Allergy/AdvReac Type Severity Reaction Status Date / Time Iodinated Contrast Media Allergy Rash/Hives/ Verified 08/28/23 12:32 [Iodinated Contrast Media - Swelling Oral and] Surgical - Exam Vital Signs Temp Pulse Resp BP Pulse Ox 97.8 F 59 L 17 131/58 97 08/28/23 12:33 08/28/23 12:33 08/28/23 12:33 08/28/23 12:33 08/28/23 12:33 - General moderate distress - Eyes normal ocular movement - Neck trachea midline - Respiratory normal respiratory effort, clear to auscultation - Cardiovascular Heart Sounds: normal: S1, S2 - Abdomen Abdomen: soft, non tender, no guarding, no rigid, no rebound - Integumentary normal turgor - Neurologic no disoriented, no combative - Musculoskeletal normal gait - Psychiatric oriented to time, oriented to person, oriented to place, speech is normal, memory intact Breast Exam: BRA: 38D Inspection: Bilateral grade 3 ptosis Palpation: Right breast: Multiple positional exam no dominant masses or nodules of concern Right axilla: No adenopathy of concern Left breast: Multi-positional exam mass directly behind the left nipple areolar complex with extension up very close under the nipple areolar complex approximately 2 cm in size Left axilla: No adenopathy of concern Results Mammogram and ultrasound reviewed with Dr. Nj Assessment and Plan Assessment: Impression: Biopsy proven left breast invasive ductal carcinoma directly behind the left nipple areolar complex Anxiety/depression Nicotine dependence Patient presently is using Premarin Back and shoulder pain Plan: Presentation of case at tumor board CC: Dr. Forde
== END ==
LOC: WWCWWP 11:47
PROVIDERS: ATTEND Surgery
DX: C50.912 Malignant neoplasm of unspecified site of left female breast (principal); E78.5 Hyperlipidemia, unspecified; I10 Essential (primary) hypertension; J45.909 Unspecified asthma, uncomplicated; M19.90 Unspecified osteoarthritis, unspecified site; E03.9 Hypothyroidism, unspecified; F32.A Depression, unspecified; F41.9 Anxiety disorder, unspecified; F17.200 Nicotine dependence, unspecified, uncomplicated; Z17.0 Estrogen receptor positive status [ER+]; Z79.890 Hormone replacement therapy; Z85.3 Personal history of malignant neoplasm of breast; Z90.49 Acquired absence of other specified parts of digestive tract; Z91.041 Radiographic dye allergy status

== ENCOUNTER 2023-10-08 07:05 | Day surgery (SDC) | payer MEDICARE, OTHER ==
--- NOTE | 2023-10-03 17:31 | P.PN ---
Subjective Progress Note Date: 10/03/23 10-03-23 Chief Complaint: Invasive ductal carcinoma left breast Radha is a 68-year-old white female seen in consultation for Dr. Diamond regarding the left breast invasive ductal carcinoma. She underwent a bilateral mammogram and [id number]. This revealed an area of concern in the left breast and an ultrasound was recommended. The ultrasound was performed on [id number]. This revealed a 19 x 14 mm lesion 2 cm from the nipple. An ultrasound core biopsy was performed on which revealed an invasive ductal carcinoma ER/AR positive HER-2/james negative. She was able to feel the mass in her left breast for approximately 3 months. She is not complaining of any nipple discharge or skin changes. The left nipple is sore and it gann. She has never had any surgery on her breasts before. She had right rotater cuff surgery , 2022, had surgery on her left rotater cuff in the past Case presented at tumor board on 09-17-23 called the patient regarding the tumor board recommendations. She is being scheduled for a central lumpectomy and sentinel node biopsy. We discussed that she underwent surgery for her shoulder prior to the breast cancer surgery. She is scheduled for a left breast lumpectomy and sentinel node biopsy on . We will obtain clearance from her primary care doctor as well as orthopedic surgery. patient stopped her Premarin I discussed her case with Dr. Rodriguez as well as medical oncology and it is felt that she is safe to have the shoulder surgery prior to the breast cancer surgery. presentation of case at tumor board Caffeine: pop occasional nicotine: 4/day, for about 20 years chocolate: occasional BCP: in the remote past for about 5 years Family History: sister: colon cancer mother: brain cancer Hormonal history: Menarche: 16 , breast fed: no, age at first : 20 menopause: 52 takes premarin since 52 Medical history: Back pain Surgical history: Left rotator cuff surgery Hysterectomy too ovaries; done for endometriosis Social History: nicotine: 4/day for 20 years alcohol: none drugs: none - Constitutional Constitutional: Reports sweats - EENT Eyes: bilateral blurred vision, denies pain Ears: bilateral: decreased hearing, deny: tinnitus Ears, nose, mouth and throat: Reports headache, Denies sore throat - Breasts Breasts: bilateral: as per HPI - Cardiovascular Cardiovascular: Denies chest pain, Denies shortness of breath - Respiratory Respiratory: Reports as per HPI - Gastrointestinal Comment: colitis, and diverticulitis Gastrointestinal: Denies abdominal pain, Denies diarrhea, Denies nausea, Denies vomiting - Genitourinary (Female) Genitourinary: Denies dysuria, Denies hematuria - Menstruation Menstruation: Reports post hysterectomy - Musculoskeletal Comment: arthritis Musculoskeletal: Reports myalgias - Integumentary Integumentary: Denies pruritus, Denies rash - Neurological Neurological: Denies numbness, Denies weakness - Psychiatric Psychiatric: Reports anxiety, Reports depression - Endocrine Endocrine: Reports fatigue, Denies weight change - Hematologic/Lymphatic Comment: none - Allergic/Immunologic Allergic/Immunologic: Reports seasonal allergies Past Medical History Past Medical History: Asthma, Hyperlipidemia, Hypertension, Osteoarthritis (OA), Thyroid Disorder Additional Past Medical History / Comment(s): takes depakote for migraine headaches, hemorrhoids, nerve pain, diverticulitis, colitis, frequent diarrhea History of Any Multi-Drug Resistant Organisms: None Reported Past Surgical History: Back Surgery, Cholecystectomy, Hysterectomy, Orthopedic Surgery Additional Past Surgical History / Comment(s): back surg. x2, lumbar fusion, left shoulder rotator cuff Past Anesthesia/Blood Transfusion Reactions: Postoperative Nausea & Vomiting (PONV) Past Psychological History: Anxiety, Depression Smoking Status: Current every day smoker Past Alcohol Use History: None Reported Additional Past Alcohol Use History / Comment(s): 6 cigs/day, not heavy, maybe for 20 yrs. Past Drug Use History: None Reported - Past Family History Mother Family Medical History: Cancer Additional Family Medical History / Comment(s): brain Sister(s) Family Medical History: Cancer Additional Family Medical History / Comment(s): PT WAS UNSURE OF ORIGIN Medications and Allergies Home Medications Medication Instructions Recorded Confirmed Type Estrogens, Conjugated [Premarin] 0.3 mg PO HS 09/03/16 08/28/23 History Morphine Sulfate ER [Ms Contin] 30 mg PO TID 09/03/16 08/28/23 History Atorvastatin [Lipitor] 20 mg PO HS 12/19/20 08/28/23 History Levothyroxine Sodium [Synthroid] 100 mcg PO DAILY 12/19/20 08/28/23 History Divalproex Sodium [Depakote] 125 mg PO DAILY 05/13/21 08/28/23 History busPIRone HCl [Buspar] 10 mg PO BID 10/28/21 08/28/23 History Lisinopril-Hctz 20-12.5 mg 1 tab PO HS 10/13/22 08/28/23 History [Zestoretic 20-12.5] Allergies Allergy/AdvReac Type Severity Reaction Status Date / Time Iodinated Contrast Media Allergy Rash/Hives/ Verified 08/28/23 12:32 [Iodinated Contrast Media - Swelling Oral and] Objective - Constitutional General appearance: Present: cooperative - EENT Eyes: Present: EOMI ENT: Present: hearing grossly normal - Neck Neck: Present: normal ROM - Respiratory Respiratory: bilateral: CTA - Cardiovascular Heart sounds: normal: S1, S2 - Gastrointestinal General gastrointestinal: Present: soft - Integumentary Integumentary: Present: normal turgor - Musculoskeletal Musculoskeletal: Present: gait normal - Psychiatric Psychiatric: Present: A&O x's 3, appropriate affect, intact judgment & insight - Additional findings Additional findings: Breast Exam: BRA: 38D Inspection: Bilateral grade 3 ptosis Palpation: Right breast: Multi-positional exam no dominant masses or nodules of concern Right axilla: No adenopathy of concern Left breast: Multi-positional exam mass directly behind the left nipple areolar complex with extension up very close under the nipple areolar complex approximately 2 cm in size Left axilla: No adenopathy of concern Assessment and Plan Assessment: Impression: Biopsy proven left breast invasive ductal carcinoma directly behind the left nipple areolar complex Anxiety/depression Nicotine dependence Patient stopped Premarin Back and shoulder pain status post ortho surgery, cleared for surgery Plan: Presentation of case at tumor board done on 09-17-23 clearance ortho surgery done Left breast needle localization with central lumpectomy, left sentinel node injection, left sentinel node biopsy, possible left axillary node dissection, possible left breast onco-plastic tissue transfer Clearance Dr. Diamond CC: Dr. Forde
[2023-10-04 09:17] VITALS: BMI 23.2
[~2023-10-08 07:05] MED LIST changes: -ACETAMINOPHEN TAB 500 MG TAB PO PRN; +HEPARIN SODIUM,PORCINE 5,000 UNIT/ML 1 ML VIAL SQ PRN; -HEPARIN SODIUM,PORCINE/PF 5,000 UNIT/0.5 ML SYRINGE SQ PRN; -Pre Op ABX Message 1 EACH MISC MISCELLANE ONE
[2023-10-08] MEDS ORDERED: METOCLOPRAMIDE 5 MG/ML 2 ML VIAL IVP PRN (07:30)
[2023-10-08] MEDS ORDERED: ONDANSETRON 4 MG/2 ML VIAL IVP ONE ×3 (07:30→07:59)
[2023-10-08] MEDS ORDERED: LIDOCAINE 1% (10MG/ML) FOR IV START INTRADERMA PRN (07:30)
[2023-10-08] MEDS ORDERED: DEXAMETHASONE SOD PHOSPHATE 4 MG/ML 1 ML VIAL IV ONE (07:30)
[2023-10-08] MEDS ORDERED: LACTATED RINGERS 1,000 ML IV SCH (07:30)
[2023-10-08] MEDS ORDERED: ALPRAZolam 0.5 MG TAB PO PRN (07:30)
[2023-10-08] MEDS ORDERED: ALPRAZolam 0.25 MG TAB ONE (07:55)
[2023-10-08] MEDS ORDERED: ALPRAZolam 0.25 MG TAB PO ONE (07:58)
[2023-10-08] MEDS ORDERED: DEXAMETHASONE SOD PHOSPHATE 4 MG/ML 1 ML VIAL IVP ONE ×2 (07:59)
[2023-10-08] MEDS ORDERED: LIDOCAINE 1% INJ 10MG/ML (20 ML MDV) SQ ONE (08:59)
--- NOTE | 2023-10-08 09:38 | P.NAPBC ---
NAPBC Queries - NAPBC Queries Was patient's case review presented at [facility] tumor board? If no, comment.: Yes Was patient's pathology reviewed at [facility]? If no, comment.: Yes Was breast conservation surgery offered? If no, comment.: Yes Was sentinel node biopsy offered? If no, comment.: Yes Was diagnosis confirmed by percutaneous core biopsy? If no, comment.: Yes Is patient mastectomy patient?: No Was a preop referral to reconstructive surgeon offered?: No Clinical Stage: stage I left breast invasive ductal cancer [id number]
[2023-10-08] MEDS ORDERED: MIDAZOLAM 2 MG/2 ML VIAL IVP ONE (09:57)
[2023-10-08] MEDS ORDERED: HYDROmorphone (PF) 1 MG/ML ONE (09:59)
[2023-10-08] MEDS ORDERED: PROPOFOL 10 MG/ML 20 ML VIAL IV ONE (09:59)
[2023-10-08] MEDS ORDERED: LIDOCAINE 1% INJ 10MG/ML (20 ML MDV) ONE (09:59)
[2023-10-08] MEDS ORDERED: SUCCINYLCHOLINE CHLORIDE 200 MG/10 ML VIAL IV ONE (09:59)
[2023-10-08] MEDS ORDERED: fentaNYL (PF) 50 MCG/ML 2 ML AMP ONE (09:59)
[2023-10-08] MEDS ORDERED: ePHEDrine 50 MG/ML 1 ML VIAL ONE (09:59)
[2023-10-08] MEDS ORDERED: METHYLENE BLUE 50 MG/10 ML AMPUL INJ ONE (10:10)
--- NOTE | 2023-10-08 11:14 | NM ---
EXAMINATION TYPE: NM sentinel node injection DATE OF EXAM: 10/08/2023 COMPARISON: 08/20/2023 CLINICAL INDICATION: Female, 68 years old with history of C50.012 MALIGNANT NEOPLASM OF NIPPLE AND AR EOLA, LEFT BREAST; TECHNIQUE AND FINDINGS: The procedure of sentinel lymph node injection was explained to the patient. The benefits, alternatives, and risks were discussed. An informed consent was then obtained. Overlying skin is cleaned with sterile alcohol. Following this, 468 uCi Tc99m Tilmanocept was inject ed in the upper outer aspect of the left nipple intradermally. The patient tolerated the procedure well without any immediate complication. The patient was kept in the radiology department for short stay after the procedure and then taken to surgery for surgical p rocedure what is presumed intraoperative gamma probe will be used for sentinel lymph node detection. IMPRESSION: Left breast radiotracer injection for sentinel node localization as above.
--- NOTE | 2023-10-08 11:38 | P.OP ---
Date of Procedure: 10/08/23 Preoperative Diagnosis: Left breast invasive ductal carcinoma Postoperative Diagnosis: Same Procedure(s) Performed: Left breast needle localization lumpectomy, oncoplastic tissue transfer 64 cm, left sentinel node mapping, left sentinel node biopsy Anesthesia: KYLER Surgeon: Eli Fernando Estimated Blood Loss (ml): 10 IV fluids (ml): 500 Pathology: other (Left sentinel node biopsy, left breast tissue) Condition: stable Disposition: same day Indications for Procedure: Biopsy-proven left breast invasive ductal carcinoma Operative Findings: Fibrofatty breast tissue Description of Procedure: The patient is a 68-year-old female diagnosed with a left breast invasive ductal carcinoma. Preoperatively needle localization of the area of concern was performed. Additionally periareolar injection of radionucleotide was performed. The patient was brought to the operative suite. Following induction of anesthesia the neoprobe was used to interrogate the axilla. Minimal radioactivity was identified. Therefore 4-1/2 cc of half percent methylene blue was injected in the periareolar area. The breast was massaged for approximately 5 minutes. The left breast and axilla were then prepped and draped in a sterile fashion. The axilla was approached initially. An incision was made and carried down into the subcutaneous tissue and to the axillary tissue. The neoprobe was used to identify an area of increased radioactivity. The area was grasped using an Allis clamp. The surrounding tissue was excised using the harmonic scalpel. The 10-second count on the radioactive lymph node was 945. The 10-second background count was 13. The radioactive lymph node was identified and it was also noted to be blue. No other blue adenopathy or radioactive adenopathy of concern was identified. The deep tissues were closed using 3-0 Vicryl suture. The skin was closed using 4-0 Monocryl. Following this the area of the breast was approached. The the area of the tumor was in proximity to the nipple areolar complex. Excision of a portion of the nipple areolar complex was performed. This was the anterior margin. Dissection was performed around the surrounding tissue down onto the pectoralis muscle posteriorly. Wide excision was performed. The specimen was painted for orientation. Radiograph of the specimen revealed that the area of concern had been removed. Titanium clips were placed. The wound was well-irrigated. The specimen was 5 x 3 cm. A superior pillar 7 x 3 cm was formed. An inferior pillar 7 x 4 cm was formed. The pillars were brought together using 3-0 Vicryl suture. Total oncoplastic tissue transfer was 64 cm. After we are sure that hemostasis was attained the subcutaneous tissues were closed using 3-0 Vicryl suture. The skin was closed using 4-0 Monocryl. The patient tolerated the procedure in stable condition. All instrument and sponge counts were correct at the end of the case. Surgical glue was applied.
[2023-10-08 12:07] VITALS: TEMP 98
[2023-10-08] MEDS: HYDROmorphone 0.5 MG/0.5 ML SYRINGE IVP PRN ×3 (12:13→12:31)
[2023-10-08] MEDS ORDERED: HYDROmorphone 1 MG/ML 1 ML SYRINGE IVP ONE ×2 (12:44→12:59)
[2023-10-08 12:56] VITALS: RESP 14
[2023-10-08 13:46] VITALS: BP 117/67; PULSE 80
== END 2023-10-08 14:17 | disposition home or self-care (01) ==
LOC: OR 07:05
PROVIDERS: ATTEND Surgery
DX: D05.12 Intraductal carcinoma in situ of left breast (principal); I10 Essential (primary) hypertension; E78.5 Hyperlipidemia, unspecified; J45.909 Unspecified asthma, uncomplicated; F17.210 Nicotine dependence, cigarettes, uncomplicated; E07.9 Disorder of thyroid, unspecified; F32.A Depression, unspecified; F41.9 Anxiety disorder, unspecified; K52.9 Noninfective gastroenteritis and colitis, unspecified; Z79.51 Long term (current) use of inhaled steroids; Z79.890 Hormone replacement therapy; Z79.899 Other long term (current) drug therapy; Z90.49 Acquired absence of other specified parts of digestive tract; Z90.710 Acquired absence of both cervix and uterus; Z98.890 Other specified postprocedural states
CPT/HCPCS: 19301; 38525; 38900; 14001; 88342; 88307; 88341; 77065; 76098; 19285; 38792; C1819; A9520; J2250; J0330; J1644; J1100; J0690; J2405; J2001; J3010; J1170 ×2; J2704; Q9968

== ENCOUNTER → 2023-10-17 | Outpatient (CLI) | payer MEDICARE, OTHER ==
[2023-10-17 13:02] VITALS: BP 113/71; PULSE 71; RESP 18; TEMP 98.1
--- NOTE | 2023-10-17 13:29 | P.PN ---
Progress Note - Text Progress Note Date: 10/17/23 Radha is a 68-year-old white female status post left breast central lumpectomy and sentinel node biopsy and 10-08-2023. Her pathology revealed a 2 cm lesion with margins which were negative and 9 lymph nodes all negative for tumor. Impression: Patient doing well postoperative Plan: Appointment medical oncology Appointment radiation oncology Oncotype Follow-up here in 4 months CC: Dr. Diamond
== END ==
LOC: WWCWWP 12:32
PROVIDERS: ATTEND Surgery
DX: F17.200 Nicotine dependence, unspecified, uncomplicated (principal); Z90.12 Acquired absence of left breast and nipple; Z88.1 Allergy status to other antibiotic agents

== ENCOUNTER 2023-10-26 12:24 | Emergency (ER) | payer MEDICARE, OTHER ==
[2023-10-26 13:00] VITALS: TEMP 98.9
[2023-10-26] MEDS: SODIUM CHLORIDE 0.9% 1,000 ML IV STA (13:16)
--- NOTE | 2023-10-26 13:16 | ED ---
Skin/Abscess/FB HPI - General Chief complaint: Skin/Abscess/Foreign Body Stated complaint: weakness Time Seen by Provider: 10/26/23 13:12 Source: patient, RN notes reviewed Mode of arrival: wheelchair Limitations: no limitations - History of Present Illness Initial comments: Patient is a 68-year-old female presented to ER with chief complaint of left jassi ast drainage. Patient had a lumpectomy by Dr. Destin Lorenz 10-07-2023 for breast cancer. Patient is planning on starting radiation in November. Patient states she has followed up outpatient with Dr. Lorenz last week. Patient states for the past 4 to 5 days she has been having increase in weakness, chills, feeling feverish. She also is noting a brown drainage from her left breast incision site. Patient states is extremely tender to touch and she has soaked multiple clothing and bed sheets due to the drainage. Patient has not taken any antibiotics. Denies any headache, cough, congestion, chest pain, shortness of breath, abdominal pain, constipation/diarrhea, urinary symptoms, peripheral edema - Related Data Home Medications Medication Instructions Recorded Confirmed Morphine Sulfate ER [Ms Contin] 30 mg PO TID 09/03/16 10/17/23 Atorvastatin [Lipitor] 20 mg PO HS 12/19/20 10/17/23 Levothyroxine Sodium [Synthroid] 100 mcg PO DAILY 12/19/20 10/17/23 Divalproex Sodium [Depakote] 125 mg PO DAILY 05/13/21 10/17/23 busPIRone HCl [Buspar] 10 mg PO BID 10/28/21 10/17/23 Zolpidem Tartrate [Ambien] 10 mg PO HS 10/04/23 10/17/23 Previous Rx's Medication Instructions Recorded Cephalexin [Keflex] 500 mg PO Q6HR #40 cap 10/26/23 Sulfamethox-Tmp 800-160Mg [Bactrim 1 each PO Q12HR #20 tab 10/26/23 Ds] Allergies Allergy/AdvReac Type Severity Reaction Status Date / Time Iodinated Contrast Media Allergy Rash/Hives/ Verified 10/26/23 12:44 [Iodinated Contrast Media - Swelling Oral and] Review of Systems ROS Statement: Those systems with pertinent positive or pertinent negative responses have been documented in the HPI. ROS Other: All systems not noted in ROS Statement are negative. Past Medical History Past Medical History: Asthma, Cancer, Hyperlipidemia, Hypertension, Osteoarthritis (OA), Thyroid Disorder Additional Past Medical History / Comment(s): Current left breast cancer. Takes Depakote for migraine headaches. Hemorrhoids, diverticulitis, colitis, frequent diarrhea. Nerve pain. History of Any Multi-Drug Resistant Organisms: None Reported Past Surgical History: Back Surgery, Breast Surgery, Cholecystectomy, Hysterectomy, Orthopedic Surgery Additional Past Surgical History / Comment(s): Back surgery X2, lumbar fusion, left shoulder rotator cuff repair, right shoulder surgery. Past Anesthesia/Blood Transfusion Reactions: Postoperative Nausea & Vomiting (PONV) Past Psychological History: Anxiety, Depression Smoking Status: Current every day smoker Past Alcohol Use History: None Reported Past Drug Use History: None Reported - Past Family History Mother Family Medical History: Cancer Additional Family Medical History / Comment(s): Brain cancer. Sister(s) Family Medical History: Cancer Additional Family Medical History / Comment(s): PT UNSURE OF ORIGIN. Brother(s) Family Medical History: Cancer General Exam Limitations: no limitations General appearance: alert, in no apparent distress Head exam: Present: atraumatic, normocephalic, normal inspection Respiratory exam: Present: normal lung sounds bilaterally. Absent: respiratory distress, wheezes, rales, rhonchi, stridor Cardiovascular Exam: Present: regular rate, normal rhythm, normal heart sounds. Absent: systolic murmur, diastolic murmur, rubs, gallop, clicks GI/Abdominal exam: Present: soft, normal bowel sounds. Absent: distended, tenderness, guarding, rebound, rigid Neurological exam: Present: alert, oriented X3, CN II-XII intact Psychiatric exam: Present: normal affect, normal mood Skin exam: Present: other (Left breast healing surgical incision. There is purulent drainage. Surrounding erythema with induration. Exquisitely tender to touch. There is also another 3 cm healing incision under right axilla. No signs of infection.) Course Vital Signs 10/26/23 10/26/23 12:41 14:44 Temperature 98.9 F Pulse Rate 74 64 Respiratory 20 14 Rate Blood Pressure 111/67 126/99 O2 Sat by Pulse 98 100 Oximetry - Reevaluation(s) Reevaluation #1: 10/26/23 15:[address] Weir who states patient can follow-up outpatient with her on Saturday. Medical Decision Making - Medical Decision Making Was pt. sent in by a medical professional or institution (, PA, DIRECTOR ERP, urgent care, hospital, or detention...) When possible be specific @ -No Did you speak to anyone other than the patient for history (EMS, parent, family, police, friend...)? What history was obtained from this source @ -No Did you review nursing and triage notes (agree or disagree)? Why? @ -I reviewed and agree with nursing and triage notes Were old charts reviewed (outside hosp., previous admission, EMS record, old EKG, old radiological studies, urgent care reports/EKG's, detention records)? Report findings @ -No old charts were reviewed Differential Diagnosis (chest pain, altered mental status, abdominal pain women, abdominal pain men, vaginal bleeding, weakness, fever, dyspnea, syncope, headache, dizziness, GI bleed, back pain, seizure, CVA, palpatations, mental health, musculoskeletal)? @ -Cellulitis, abscess, dehiscence of wound, sepsis this list is not meant to be all-inclusive EKG interpreted by me (3pts min.). @ -None X-rays interpreted by me (1pt min.). @ -None done CT interpreted by me (1pt min.). @ -None done U/S interpreted by me (1pt. min.). @ -Ultrasound left breast shows a 9.8 x 2.5 x 5.2 cm lobulated focal thin- walled fluid collection. At the 3 to 6 o'clock position. What testing was considered but not performed or refused? (CT, X-rays, U/S, l abs)? Why? @ -None What meds were considered but not given or refused? Why? @ -None Did you discuss the management of the patient with other professionals (professionals i.e. , IGGY, DIRECTOR ERP, lab, RT, psych nurse, psychotherapist social worker, fish cutter, teacher, state highway police officer, case sealer)? Give summary @ -Yes, I discussed this case with Dr. Weir who advised outpatient follow-up.] Was smoking cessation discussed for >3mins.? @ -No Was critical care preformed (if so, how long)? @ -No Were there social determinants of health that impacted care today? How? (Homelessness, low income, unemployed, alcoholism, drug addiction, transportation, low edu. Level, literacy, decrease access to med. care, fci, rehab)? @ -No Was there de-escalation of care discussed even if they declined (Discuss DNR or withdrawal of care, Hospice)? DNR status @ -No What co-morbidities impacted this encounter? (DM, HTN, Smoking, COPD, CAD, Cancer, CVA, ARF, Chemo, Hep., AIDS, mental health diagnosis, sleep apnea, morbid obesity)? @ -Breast cancer, thyroid disorder, hypertension Was patient admitted / discharged? Hospital course, mention meds given and route, prescriptions, significant lab abnormalities, going to OR and other pertinent info. @ -Discharged. Patient is a 68 year old female presenting to the ER with a chief complaint of left breast drainage s/p lumpectomy on 10/07/[address] Wendi Lorenz. Vitals stable. History and physical exam were completed. Purulent drainage present with surrounding erythema and induration by incision site. Patient left breast was exquisetly tender to touch. Patient without signs of acute distress. Labs obtained in the ER unremarkable. WBC 7. COVID, influenza, RSV negative. Ultrasound left breast shows a 9.8 x 2.5 x 5.2 cm lobulated focal thin-walled fluid collection. At the 3 to 6 o'clock position. Patient received IV Dilaudid, zofran and fluids with mild relief. Patient states she normally takes morphine at home for pain control. I discussed this case with Dr. Destin Lorenz, patient's surgeon, who advised outpatient follow-up. I discussed lab and imaging results with patient, all questions answered. Patient prescribed keflex and bactrim. Educated her on importance of completing full course of antibiotics. Rodolfo refused analgesics at discharge and she is prescribed morphine outpatient. Advised patient to follow-up with Dr. Destin Lorenz next week. Return parameters were discussed. Patient be discharged with management follow-up to Dr. Fernando. Patient expressed understanding and agreement with care plan. Undiagnosed new problem with uncertain prognosis? @ -No Drug Therapy requiring intensive monitoring for toxicity (Heparin, Nitro, Insulin, Cardizem)? @ -No Were any procedures done? @ -No Diagnosis/symptom? @ -Cellulitis/breast cancer Acute, or Chronic, or Acute on Chronic? @ -Acute Uncomplicated (without systemic symptoms) or Complicated (systemic symptoms)? @ -Uncomplicated Side effects of treatment? @ -No Exacerbation, Progression, or Severe Exacerbation? @ -No Poses a threat to life or bodily function? How? (Chest pain, USA, GA, pneumonia, PE, COPD, DKA, ARF, appy, cholecystitis, CVA, Diverticulitis, Homicidal, Suicidal, threat to staff... and all critical care pts) @ -No - Lab Data Result diagrams: 10/26/23 13:19 10/26/23 13:19 Lab Results 10/26/23 10/26/23 10/26/23 Range/Units 13:19 13:19 13:19 WBC 7.7 (3.8-10.6) k/uL RBC 3.98 (3.80-5.40) m/uL Hgb 13.0 (11.4-16.0) gm/dL Hct 37.6 (34.0-46.0) % MCV 94.5 (80.0-100.0) fL MCH 32.6 (25.0-35.0) pg MCHC 34.5 (31.0-37.0) g/dL RDW 12.5 (11.5-15.5) % Plt Count 444 (150-450) k/uL MPV 7.5 Sodium 142 (137-145) mmol/L Potassium 3.7 (3.5-5.1) mmol/L Chloride 105 (98-107) mmol/L Carbon Dioxide 26 (22-30) mmol/L Anion Gap 11 mmol/L BUN 29 H (7-17) mg/dL Creatinine 0.68 (0.52-1.04) mg/dL Est GFR (CKD-EPI)AfAm >90 (>60 ml/min/1.73 sqM) Est GFR (CKD-EPI)NonAf >90 (>60 ml/min/1.73 sqM) Glucose 102 H (74-99) mg/dL Plasma Lactic Acid Stephen 1.2 (0.7-2.0) mmol/L Calcium 9.6 (8.4-10.2) mg/dL Total Bilirubin 0.6 (0.2-1.3) mg/dL AST 26 (14-36) U/L ALT 17 (4-34) U/L Alkaline Phosphatase 155 H (38-126) U/L Total Protein 6.9 (6.3-8.2) g/dL Albumin 4.0 (3.5-5.0) g/dL Influenza Type A (PCR) (Not Detectd) Influenza Type B (PCR) (Not Detectd) RSV (PCR) (Not Detectd) SARS-CoV-2 (PCR) (Not Detectd) 10/26/23 Range/Units 13:19 WBC (3.8-10.6) k/uL RBC (3.80-5.40) m/uL Hgb (11.4-16.0) gm/dL Hct (34.0-46.0) % MCV (80.0-100.0) fL MCH (25.0-35.0) pg MCHC (31.0-37.0) g/dL RDW (11.5-15.5) % Plt Count (150-450) k/uL MPV Sodium (137-145) mmol/L Potassium (3.5-5.1) mmol/L Chloride (98-107) mmol/L Carbon Dioxide (22-30) mmol/L Anion Gap mmol/L BUN (7-17) mg/dL Creatinine (0.52-1.04) mg/dL Est GFR (CKD-EPI)AfAm (>60 ml/min/1.73 sqM) Est GFR (CKD-EPI)NonAf (>60 ml/min/1.73 sqM) Glucose (74-99) mg/dL Plasma Lactic Acid Stephen (0.7-2.0) mmol/L Calcium (8.4-10.2) mg/dL Total Bilirubin (0.2-1.3) mg/dL AST (14-36) U/L ALT (4-34) U/L Alkaline Phosphatase (38-126) U/L Total Protein (6.3-8.2) g/dL Albumin (3.5-5.0) g/dL Influenza Type A (PCR) Not Detected (Not Detectd) Influenza Type B (PCR) Not Detected (Not Detectd) RSV (PCR) Not Detected (Not Detectd) SARS-CoV-2 (PCR) Not Detected (Not Detectd) - Radiology Data Radiology results: report reviewed, image reviewed Disposition Clinical Impression: Breast cancer, Cellulitis Disposition: HOME SELF-CARE Condition: Stable Instructions (If sedation given, give patient instructions): Cellulitis (ED) Additional Instructions: Please follow-up with Dr. Weir next week. She is out of the office until 10/29/23. Return to the ER for any new or worsening symptoms. Prescriptions: Sulfamethox-Tmp 800-160Mg [Bactrim Ds] 1 each PO Q12HR #20 tab Cephalexin [Keflex] 500 mg PO Q6HR #40 cap Is patient prescribed a controlled substance at d/c from ED?: No Referrals: Isidro Diamond MD [Primary Care Provider] - 1-2 days Time of Disposition: 15:04
[2023-10-26] MEDS: ONDANSETRON 4 MG/2 ML VIAL IVP STA (13:17)
[2023-10-26] MEDS: HYDROmorphone 1 MG/ML 1 ML SYRINGE IVP STA ×2 (13:17→14:40)
[2023-10-26 13:41] LABS: HCT 37.6 % (34.0-46.0); MCH 32.6 pg (25.0-35.0); MCHC 34.5 g/dL (31.0-37.0); MCV 94.5 fL (80.0-100.0); Mean Platelet Volume 7.5; Platelet Count 444 k/uL (150-450); RBC 3.98 m/uL (3.80-5.40); RDW 12.5 % (11.5-15.5); WBC 7.7 k/uL (3.8-10.6)
[2023-10-26 13:55] LABS: ALT 17 U/L (4-34); AST 26 U/L (14-36); African American GFR (CKD) >90 (>60 ml/min/1.73 sqM); Alkaline Phosphatase 155 U/L (38-126); Anion Gap 11 mmol/L; Blood Urea Nitrogen 29 mg/dL (7-17); Calcium 9.6 mg/dL (8.4-10.2); Carbon Dioxide 26 mmol/L (22-30); Chloride 105 mmol/L (98-107); Glucose 102 mg/dL (74-99); Non-African American GFR(CKD) >90 (>60 ml/min/1.73 sqM); Potassium 3.7 mmol/L (3.5-5.1); Sodium 142 mmol/L (137-145); Total Bilirubin 0.6 mg/dL (0.2-1.3); Total Protein 6.9 g/dL (6.3-8.2)
[2023-10-26] MEDS: KETOROLAC 15 MG/ML 1 ML VIAL IVP STA (14:03)
[2023-10-26 14:49] VITALS: BP 126/99; PULSE 64; RESP 14
--- NOTE | 2023-10-28 07:16 | USB ---
Reason for Exam: Clinical finding. Indicated Problems: Lump or thickening of the left side (size 70) for 2 Week(s). Pain of the left side (Global) for 2 Week(s). Non-bloody discharge of the left side (Green) for 2 Week(s). Patient History: Menarche at age 15. First Full-Term at age 20. Left ovary removed at age 34. Right ovary removed at age 34. Hysterectomy at age 34. Postmenopausal. Breast cancer, left, age 68. Breast cancer, left, age 68. Currently using Estrogen, beginning at age 34 for 24 years. 10/08/2023, Lumpectomy on the Left side. 10/08/2023, Malignant US breast localization LT on the left side. 08/20/2023, Malignant US biopsy breast VAD LT on the left side. Technique: Method: Whole Breast Handheld. Doppler: Color. Patient Position: RPO. Prior Study Comparison: 08/14/2023 Bilateral MG 3D diag mammo w/cad JELLY, [facility]. 08/20/2023 Left MG diagnostic mammo LT wo CAD., [facility]. 10/08/2023 Left MG diagnostic mammo LT wo CAD., [facility]. Findings: The whole breast of the left breast, the axilla of the left breast and the retroareolar of the left breast were scanned. Ill defined fluid collection without increased surrounding vascularity with internal debris = 9.8 x 2.5 x 5.2 cm Located below surgical scar. Moderate to large sized nonspecific slightly lobulated focal thin-walled fluid collection is present as detailed above from 3 to 6:00 position in the left breast. IMPRESSION: Postsurgical seroma is suspected or favored. Other etiologies not entirely excluded. Overall Assessment: Benign, BI-RAD 2 Management: Clinical Management of both breasts. Appropriate clinical management and follow-up. Electronically signed and approved by: Garfield Helms M.D.
== END 2023-10-26 15:25 | disposition home or self-care (01) ==
LOC: EC 12:24
DX: L03.111 Cellulitis of right axilla (principal); C50.912 Malignant neoplasm of unspecified site of left female breast; I10 Essential (primary) hypertension; E78.5 Hyperlipidemia, unspecified; E07.9 Disorder of thyroid, unspecified; J45.909 Unspecified asthma, uncomplicated; F41.9 Anxiety disorder, unspecified; F32.A Depression, unspecified; F17.200 Nicotine dependence, unspecified, uncomplicated; Z79.899 Other long term (current) drug therapy; Z20.822 Contact with and (suspected) exposure to COVID-19; Z79.890 Hormone replacement therapy; Z91.041 Radiographic dye allergy status
CPT/HCPCS: 99285 ×2; 96374 ×2; 96375 ×2; 96376 ×2; 96361 ×2; 36415; 80053; 83605; 85027; 87040; 87070; 87205; 87636; 76641; J2405; J1170

== ENCOUNTER → 2023-10-29 | Outpatient (CLI) | payer MEDICARE, OTHER ==
[2023-10-29 12:06] VITALS: BP 106/67; PULSE 71; RESP 14; TEMP 97.7
--- NOTE | 2023-10-29 15:47 | P.PN ---
Progress Note - Text Progress Note Date: 10/29/23 Radha is a 68-year-old white female status post left breast central lumpectomy and sentinel node biopsy on 10-08-2023. Her pathology revealed a 2 cm lesion with margins which were negative and 9 lymph nodes all negative for tumor. Methylene blue was injected at the time of surgery for sentinel node evaluation. The patient several days ago was seen in the emergency room with some necrosis of the medial aspect of the incision near where the methylene blue had been injected. She comes in the office today for evaluation of this area. She is not complaining of any fever or chills. Surgeon: Medial aspect of the incision with some tissue necrosis believed to be related to the methylene blue injection. Following informed consent the area was debrided. The wound was well-irrigated. The wound was reinforced using nylon sutures. The patient tolerated this in stable condition. Plan: Follow-up 1 week CC: Dr. Diamond Additional CC's: Isidro Diamond
== END ==
LOC: WWCWWP 11:43
PROVIDERS: ATTEND Surgery
DX: N61.1 Abscess of the breast and nipple (principal); L98.8 Other specified disorders of the skin and subcutaneous tissue; F17.200 Nicotine dependence, unspecified, uncomplicated; Z98.890 Other specified postprocedural states; Z91.041 Radiographic dye allergy status
CPT/HCPCS: 87070; 87075; 87205

== ENCOUNTER → 2023-10-31 | Outpatient (CLI) | payer MEDICARE, OTHER ==
--- NOTE | 2023-10-31 10:42 | P.PN ---
Progress Note - Text Progress Note Date: 10/31/23 10/31/23 Radha is a 68-year-old white female status post left breast central lumpectomy and sentinel node biopsy on 10-08-2023. Her pathology revealed a 2 cm lesion with margins which were negative and 9 lymph nodes all negative for tumor. Methylene blue was injected at the time of surgery for sentinel node evaluation. The patient been on 10-26-2023 in the emergency room, was started on an antibiotic for question of some cellulitis. She was seen here on 10-29-2023 with some necrosis of the medial aspect of the incision near where the methylene blue had been injected. She comes in the office today for evaluation of this area. She is not complaining of any fever or chills. She has not had any further drainage Cultures from 10-29-2023 no organisms seen, no growth Note Dr. Harrison 10-30-2023 reviewed; recommend endocirne therapy to follow radiation therapy Examination: Incision is clean and dry at this time, there is no evidence of any seroma to drain Lungs: Clear Heart: Regular rate and rhythm Plan: Follow-up 1 week CC: Dr. Diamond
[2023-10-31 11:55] VITALS: BP 119/69; PULSE 68; RESP 17; TEMP 98.7
== END ==
LOC: WWCWWP 09:48
PROVIDERS: ATTEND Surgery
DX: L98.9 Disorder of the skin and subcutaneous tissue, unspecified (principal); I96 Gangrene, not elsewhere classified; F17.200 Nicotine dependence, unspecified, uncomplicated; Z98.890 Other specified postprocedural states; Z91.041 Radiographic dye allergy status

== ENCOUNTER → 2023-11-07 | Outpatient (CLI) | payer MEDICARE, OTHER ==
--- NOTE | 2023-11-07 09:25 | P.PN ---
Progress Note - Text Progress Note Date: 11/07/23 11/07/23 Radha is a 68-year-old white female status post left breast central lumpectomy and sentinel node biopsy on 10-08-2023. Her pathology revealed a 2 cm lesion with margins which were negative and 9 lymph nodes all negative for tumor. Methylene blue was injected at the time of surgery for sentinel node evaluation. The patient was seen on 10-26-2023 in the emergency room, was started on an antibiotic for question of some cellulitis. She was seen here on 10-29-2023 with some necrosis of the medial aspect of the incision near where the methylene blue had been injected. She comes in the office today for evaluation of this area. She is not complaining of any fever or chills. She has not had any further drainage. The patient is complaining of loss of taste, and appetite. The patient is complaining of intermittent feeling cold and then sweating but has not had any fever. She did have COVID testing performed and states this was negative. She has lost about 8 pounds as decreased appetite. Cultures from 10-29-2023 no organisms seen, no growth Note Dr. Harrison 10-30-2023 reviewed; recommend endocrine therapy to follow radiation therapy Examination: Incision is clean and dry at this time, there is no evidence of any seroma to drain; Lungs: Clear Heart: Regular rate and rhythm Plan: Follow-up 1 week CC: Dr. Diamond
[2023-11-07 10:04] VITALS: BP 102/66; PULSE 83; RESP 17; TEMP 97.5
== END ==
LOC: WWCWWP 08:31
PROVIDERS: ATTEND Surgery
DX: L76.82 Other postprocedural complications of skin and subcutaneous tissue (principal); R43.8 Other disturbances of smell and taste; R63.0 Anorexia; F17.200 Nicotine dependence, unspecified, uncomplicated; Z98.890 Other specified postprocedural states; Z91.041 Radiographic dye allergy status

== ENCOUNTER → 2023-11-14 | Outpatient (CLI) | payer MEDICARE, OTHER ==
--- NOTE | 2023-11-14 10:56 | P.PN ---
Progress Note - Text Progress Note Date: 11/14/23 11/14/23 Radha is a 68-year-old white female status post left breast central lumpectomy and sentinel node biopsy on 10-08-2023. Her pathology revealed a 2 cm lesion with margins which were negative and 9 lymph nodes all negative for tumor. Methylene blue was injected at the time of surgery for sentinel node evaluation. The patient was seen on 10-26-2023 in the emergency room, was started on an antibiotic for question of some cellulitis. She was seen here on 10-29-2023 with some necrosis of the medial aspect of the incision near where the methylene blue had been injected. She comes in the office today for evaluation of this area. She is not complaining of any fever or chills. She has not had any further drainage. The patient is complaining of loss of taste, and appetite. The patient is complaining of intermittent feeling cold and then sweating but has not had any fever. She did have COVID testing performed and states this was negative. She has lost about 8 pounds as decreased appetite. Cultures from 10-29-2023 no organisms seen, no growth Note Dr. Harrison 10-30-2023 reviewed on 11-07-23; recommend endocrine therapy to follow radiation therapy Is seen on 11-14-2023. She has some necrosis of the most medial aspect of the incision with some drainage. After informed consent the area was recommended to be debrided and reinforced. Examination: Incision necrosis at medial aspect of incision, with some drainage Informed consent debridement and reinforcement of the incision was performed: The area was prepped using Betadine 5 cc of 1% lidocaine was used to anesthetize the area of concern Debridement was performed of some necrotic tissue in the medial aspect of the incision. Fluid/seroma from the wound was removed. The wound was irrigated. The medial tissue was debrided. Two 3-0 nylon sutures were placed to reinforce the incision. The patient tolerated the procedure in stable condition Plan: Follow-up 1 week CC: Dr. Diamond
[2023-11-14 11:04] VITALS: BP 127/74; PULSE 71; RESP 15; TEMP 97.7
== END ==
LOC: WWCWWP 10:24
PROVIDERS: ATTEND Surgery
DX: L76.82 Other postprocedural complications of skin and subcutaneous tissue (principal); I96 Gangrene, not elsewhere classified; R63.0 Anorexia; N63.20 Unspecified lump in the left breast, unspecified quadrant; F17.200 Nicotine dependence, unspecified, uncomplicated; Z98.890 Other specified postprocedural states; Z91.041 Radiographic dye allergy status

== ENCOUNTER → 2023-11-26 | Outpatient (CLI) | payer MEDICARE, OTHER ==
[2023-11-26 12:57] VITALS: BP 110/72; PULSE 96; RESP 16; TEMP 98.3
--- NOTE | 2023-11-26 15:02 | P.PN ---
Progress Note - Text Progress Note Date: 11/26/23 11-26-23 Radah is a 68-year-old white female status post left breast central lumpectomy and sentinel node biopsy on 10-08-2023. Her pathology revealed a 2 cm lesion with margins which were negative and 9 lymph nodes all negative for tumor. Methylene blue was injected at the time of surgery for sentinel node evaluation. The patient was seen on 10-26-2023 in the emergency room, was started on an antibiotic for question of some cellulitis. She was seen here on 10-29-2023 with some necrosis of the medial aspect of the incision near where the methylene blue had been injected. She comes in the office today for evaluation of this area. She is not complaining of any fever or chills. She has not had any further drainage. Cultures from 10-29-2023 no organisms seen, no growth Note Dr. Harrison 10-30-2023 reviewed on 11-07-23; recommend endocrine therapy to follow radiation therapy Was seen on 11-14-2023. She has some necrosis of the most medial aspect of the incision with some drainage. After informed consent the area was recommended to be debrided and reinforced. Today the patient is doing well. She is here for suture removal. She has had some minimal drainage at the medial aspect of the incision. Examination: Incision clean and dry Sutures ready for removal Sutures removed Dressing changed Plan: Follow-up 2 weeks, sooner if any questions CC: Dr. Diamond
== END ==
LOC: WWCWWP 11:43
PROVIDERS: ATTEND Surgery
DX: I96 Gangrene, not elsewhere classified (principal); F17.200 Nicotine dependence, unspecified, uncomplicated; Z85.3 Personal history of malignant neoplasm of breast; Z98.890 Other specified postprocedural states; Z91.041 Radiographic dye allergy status

== ENCOUNTER → 2023-12-12 | Outpatient (CLI) | payer MEDICARE, OTHER ==
[2023-12-12 13:38] VITALS: BP 122/79; PULSE 60; RESP 15; TEMP 97.7
--- NOTE | 2023-12-12 13:56 | P.PN ---
Progress Note - Text Progress Note Date: 12/12/23 12-12-23 Rdaha is a 68-year-old white female status post left breast central lumpectomy and sentinel node biopsy on 10-08-2023. Her pathology revealed a 2 cm lesion with margins which were negative and 9 lymph nodes all negative for tumor. Methylene blue was injected at the time of surgery for sentinel node evaluation. The patient was seen on 10-26-2023 in the emergency room, was started on an antibiotic for question of some cellulitis. She was seen here on 10-29-2023 with some necrosis of the medial aspect of the incision near where the methylene blue had been injected. She comes in the office today for evaluation of this area. She is not complaining of any fever or chills. She has not had any further drainage. She was last seen on 11-26-23 sutures were removed at that time. Cultures from 10-29-2023 no organisms seen, no growth Note Dr. Harrison 10-30-2023 reviewed on 11-07-23; recommend endocrine therapy to follow radiation therapy Was seen on 11-14-2023. She has some necrosis of the most medial aspect of the incision with some drainage. After informed consent the area was recommended to be debrided and reinforced. 11-26-23 The patient was doing well. She had for suture removal. She has had some minimal drainage at the medial aspect of the incision. Examination: Clear Heart: Regular rate and rhythm Incisions clean and dry, no drainage at the incision at this time Plan: Follow-up radiation oncology Follow-up medical oncology Follow-up here in 4 months CC: Dr. Diamond
== END ==
LOC: WWCWWP 12:32
PROVIDERS: ATTEND Surgery
DX: Z85.3 Personal history of malignant neoplasm of breast (principal)

== ENCOUNTER → 2024-03-10 | Outpatient (CLI) | payer MEDICARE, OTHER ==
--- NOTE | 2024-03-10 15:48 | BD ---
EXAMINATION TYPE: Axial Bone Density DATE OF EXAM: 03/10/2024 CLINICAL HISTORY: 68 years old Female. ICD-10 CODE: M81.8 Osteoporosis Height: 59 Weight: 122 FRAX RISK QUESTIONS: Family History (Parent hip fracture): yes, father Glucocorticoids (More than 3mos): yes, copd, (Ex: prednisone, prednisolone, methylprednisolone, dexamethasone, and hydrocortisone). History of Fracture in Adulthood: yes Secondary Osteoporosis: yes 3. Menopause before 45: total hyst at age 29 Current Tobacco Use: yes RISK FACTORS HISTORY OF: left breast cancer, 2023 with lumpectomy and radiation, hx of left ankle fracture, Surgery to Spine yes, with hardware and screws, fusion MEDICATIONS: bp meds, cholesterol meds, hx of radiation Thyroid Medications: yes for 20 yrs, synthroid EXAM MEASUREMENTS: Bone mineral densitometry was performed using the artaculous System. spine not scanned, hx of surgical repair. Bone mineral density about the R hip (g/cm2): 1.068 Bone mineral density about the L hip (g/cm2): 1.047 T Score values are as follows: -----R Neck: -0.2 -----L Neck: -0.3 -----R Total: 0.5 -----L Total: 0.3 Z Score values are as follows: -----R Neck: 1.5 -----L Neck: 1.5 -----R Total: 2.0 -----L Total: 1.8 Bone mineral density is her baseline study today. Bone mineral density about the L Wrist (g/cm2): 0.605 T Score values are as follows: -----Dist. R+U: 0.1 -----Prox. R+U: -0.2 -----Radius total: -0.4 Z Score values are as follows: -----Dist. R+U: 1.6 -----Prox. R+U: 1.3 -----Radius total: 1.1 Bone mineral density is her first dexa study, baseline. FRAX%s: The graph provided illustrates a 30.9% chance for a major osteoporotic fx and a 2.2% chance f or the hips probability for fx in 10 years time. IMPRESSION: Normal (Values between +1 and -1 indicate normal bone mass). Consider repeating this study in 5 year s or sooner if there is some new clinical indication. NOTE: T-SCORE=SD OF THE YOUNG ADULT MEAN.
== END | disposition home or self-care (01) ==
LOC: RADBDWWP 13:55
PROVIDERS: ATTEND Internal Medicine Hematology & Oncology
DX: C50.512 Malignant neoplasm of lower-outer quadrant of left female breast (principal); M81.0 Age-related osteoporosis without current pathological fracture; L03.90 Cellulitis, unspecified; E78.5 Hyperlipidemia, unspecified; M12.9 Arthropathy, unspecified; Z78.0 Asymptomatic menopausal state
CPT/HCPCS: 77080

== ENCOUNTER → 2024-04-10 | Outpatient (CLI) | payer MEDICARE, OTHER ==
[2024-04-10 11:07] VITALS: BP 137/72; PULSE 78; RESP 17; TEMP 98.9
--- NOTE | 2024-04-10 11:41 | P.PN ---
Subjective Progress Note Date: 04/10/24 Principal diagnosis: left breast stage IA IDC 2022 History of Present Illness Chief Complaint: Invasive ductal carcinoma left breast/ surveillance Radha is a 68-year-old white female seen in consultation for Dr. Diamond regarding a left breast invasive ductal carcinoma. She underwent a bilateral mammogram on [id number]. This revealed an area of concern in the left breast and an ultrasound was recommended. The ultrasound was performed on [id number]. This revealed a 19 x 14 mm lesion 2 cm from the nipple. An ultrasound core biopsy was performed on which revealed an invasive ductal carcinoma ER/MD positive HER-2/james negative. Was able to feel a mass in her left breast for approximately 3 months. She was not complaining of any nipple discharge or skin changes. The left nipple is sore. She has never had any surgery on her breasts before. She was scheduled for surgery on her rotator cuff and it was felt that it was safe for her to proceed with that. Underwent a left breast lumpectomy and sentinel node biopsy on 10-29-2023; 2 cm lesion, all margins (-), 9 nodes (-) post op some necrosis at methleyne blue injection site note radiation oncology 03-10-24 reviewed completed treatment on 01-16-24 note medical oncology 03-04-24: start AI , bone density, effexor Persistent discomfort in the left breast in the inferior aspect; she is not complaining of any new lumps masses or nodules of concern in either breast Caffeine: pop occasional nicotine: 4/day, for about 20 years chocolate: occasional BCP: in the remote past for about 5 years Family History: sister: colon cancer mother: brain cancer Hormonal history: Menarche: 16 , breast fed: no, age at first : 20 menopause: 52 takes premarin since 52 Medical history: Back pain Surgical history: Left rotator cuff surgery Hysterectomy too ovaries; done for endometriosis Social History: nicotine: 4/day for 20 years alcohol: none drugs: none - Constitutional Constitutional: Reports sweats - EENT Eyes: bilateral blurred vision, denies pain Ears: bilateral: decreased hearing, deny: tinnitus Ears, nose, mouth and throat: Reports headache, Denies sore throat - Breasts Breasts: bilateral: as per HPI - Cardiovascular Cardiovascular: Denies chest pain, Denies shortness of breath - Respiratory Respiratory: Reports as per HPI - Gastrointestinal Comment: colitis, and diverticulitis Gastrointestinal: Denies abdominal pain, Denies diarrhea, Denies nausea, Denies vomiting - Genitourinary (Female) Genitourinary: Denies dysuria, Denies hematuria - Menstruation Menstruation: Reports post hysterectomy - Musculoskeletal Comment: arthritis Musculoskeletal: Reports myalgias - Integumentary Integumentary: Denies pruritus, Denies rash - Neurological Neurological: Denies numbness, Denies weakness - Psychiatric Psychiatric: Reports anxiety, Reports depression - Endocrine Endocrine: Reports fatigue, Denies weight change - Hematologic/Lymphatic Comment: none - Allergic/Immunologic Allergic/Immunologic: Reports seasonal allergies Past Medical History Past Medical History: Asthma, Hyperlipidemia, Hypertension, Osteoarthritis (OA), Thyroid Disorder Additional Past Medical History / Comment(s): takes depakote for migraine headaches, hemorrhoids, nerve pain, diverticulitis, colitis, frequent diarrhea History of Any Multi-Drug Resistant Organisms: None Reported Past Surgical History: Back Surgery, Cholecystectomy, Hysterectomy, Orthopedic Surgery Additional Past Surgical History / Comment(s): back surg. x2, lumbar fusion, left shoulder rotator cuff Past Anesthesia/Blood Transfusion Reactions: Postoperative Nausea & Vomiting (PONV) Past Psychological History: Anxiety, Depression Smoking Status: Current every day smoker Past Alcohol Use History: None Reported Additional Past Alcohol Use History / Comment(s): 6 cigs/day, not heavy, maybe for 20 yrs. Past Drug Use History: None Reported - Past Family History Mother Family Medical History: Cancer Additional Family Medical History / Comment(s): brain Sister(s) Family Medical History: Cancer Additional Family Medical History / Comment(s): PT WAS UNSURE OF ORIGIN Medications and Allergies Home Medications Medication Instructions Recorded Confirmed Type Estrogens, Conjugated [Premarin] 0.3 mg PO HS 09/03/16 08/28/23 History Morphine Sulfate ER [Ms Contin] 30 mg PO TID 09/03/16 08/28/23 History Atorvastatin [Lipitor] 20 mg PO HS 12/19/20 08/28/23 History Levothyroxine Sodium [Synthroid] 100 mcg PO DAILY 12/19/20 08/28/23 History Divalproex Sodium [Depakote] 125 mg PO DAILY 05/13/21 08/28/23 History busPIRone HCl [Buspar] 10 mg PO BID 10/28/21 08/28/23 History Lisinopril-Hctz 20-12.5 mg 1 tab PO HS 10/13/22 08/28/23 History [Zestoretic 20-12.5] Allergies Allergy/AdvReac Type Severity Reaction Status Date / Time Iodinated Contrast Media Allergy Rash/Hives/ Verified 08/28/23 12:32 [Iodinated Contrast Media - Swelling Oral and] Objective - Vital Signs Vital signs: Vital Signs Temp 98.9 F 04/10/24 11:05 Pulse 78 04/10/24 11:05 Resp 17 04/10/24 11:05 BP 137/72 04/10/24 11:05 Pulse Ox 96 04/10/24 11:05 FiO2 Intake & Output 04/09/24 04/10/24 04/10/24 18:59 06:59 18:59 Weight 54.431 kg - Constitutional General appearance: Present: cooperative - EENT Eyes: Present: EOMI ENT: Present: hearing grossly normal - Neck Neck: Present: normal ROM - Respiratory Respiratory: bilateral: CTA - Cardiovascular Heart sounds: normal: S1, S2 - Integumentary Integumentary: Present: normal turgor - Musculoskeletal Musculoskeletal: Present: gait normal - Psychiatric Psychiatric: Present: A&O x's 3, appropriate affect, intact judgment & insight - Additional findings Additional findings: Breast Exam: BRA; 38D INspection: Asymmetry of the breast related to left breast central lumpectomy, left breast postradiation and surgical changes Palpation: Right breast: Multi positional exam fibrocystic changes, no dominant masses or nodules of concern, grade 3 ptosis Right axilla: No adenopathy of concern Left breast: Multi positional exam fibrocystic changes, postsurgical and radiation changes, grade 2 ptosis Left axilla: No adenopathy of concern Right breast is larger than left breast secondary to treatment for breast cancer Assessment and Plan Assessment: Impression: Patient's status post left breast lumpectomy/radiation therapy for stage Ia invasive ductal carcinoma Patient will be due for bilateral mammogram in August Patient will start aromatase inhibitor in the near future Patient completed radiation therapy Plan: Cream for left breast as it is irritated and erythematous felt to be related to radiation therapy Bilateral mammogram in August with examination at that time Follow with medical oncology for aromatase inhibitor Consider procedure for asymmetry in the future Hydrogel/hydrocortisone cream to affected area CC: Dr. Diamond
== END ==
LOC: WWCWWP 10:44
PROVIDERS: ATTEND Surgery
DX: N60.12 Diffuse cystic mastopathy of left breast (principal); N60.11 Diffuse cystic mastopathy of right breast; F17.200 Nicotine dependence, unspecified, uncomplicated; N64.89 Other specified disorders of breast; Z92.3 Personal history of irradiation; Z91.041 Radiographic dye allergy status

== ENCOUNTER → 2024-09-14 | Outpatient (CLI) | payer MEDICARE, OTHER ==
--- NOTE | 2024-09-14 14:00 | MM ---
Reason for Exam: Follow-up at short interval from prior study. Last mammogram was performed 1 year(s) and 1 month(s) ago. Patient History: Menarche at age 15. First Full-Term at age 20. Left ovary removed at age 34. Right ovary removed at age 34. Hysterectomy at age 34. Postmenopausal. Breast cancer, left, age 68. Breast cancer, left, age 68. Currently using Estrogen, beginning at age 34 for 24 years. 10/08/2023, Lumpectomy on the Left side. 10/08/2023, Malignant US breast localization LT on the left side. 08/20/2023, Malignant US biopsy breast VAD LT on the left side. Prior Study Comparison: 08/25/2015 Bilateral Screening Mammogram, [facility]. 03/25/2019 Bilateral Screening Mammogram, [facility]. 10/26/2020 Bilateral Screening Mammogram, [facility]. 08/20/2023 Left MG diagnostic mammo LT wo CAD., [facility]. 10/08/2023 Left MG diagnostic mammo LT wo CAD., [facility]. Tissue Density: There are scattered areas of fibroglandular density. Findings: Analyzed By CAD. The pattern is symmetrical. Left breast has postsurgical change multiple surgical clips present. Left breast is smaller than the right. Benign-appearing round calcifications are in the anterior left breast. Right breast no significant interval change. No suspicious groups of microcalcifications, spiculated or lobular masses, architectural distortion or other secondary signs of malignancy are mammographically apparent. Overall Assessment: Benign, BI-RAD 2 Management: Diagnostic Mammogram of both breasts in 1 year. A negative mammogram report should not preclude additional follow up of suspicious palpable abnormalities. Patient should continue monthly self breast exam. A clinical breast exam by your physician is recommended on an annual basis and results should be correlated with mammographic findings. Note on Ashley scores and lifetime risk: 1. A Ashley score greater than 3% is considered moderate risk. If this is the case, consider specialist referral to assess eligibility for a risk reducing agent. 2. If overall lifetime risk for the development of breast cancer is 20% or higher, the patient may qualify for future screening with alternating mammogram and breast MRI. [facility], , 09/14/2024 1:56 PM. Electronically signed and approved by: Jose Enrique Nj D.O. Radiologis
== END | disposition home or self-care (01) ==
LOC: RADMAMWWP 12:58
PROVIDERS: ATTEND Radiology Radiation Oncology
DX: C50.112 Malignant neoplasm of central portion of left female breast (principal); R92.323 Mammographic fibroglandular density, bilateral breasts; Z78.0 Asymptomatic menopausal state; Z17.0 Estrogen receptor positive status [ER+]; Z85.3 Personal history of malignant neoplasm of breast; Z90.722 Acquired absence of ovaries, bilateral
CPT/HCPCS: 77066; G0279; 77062

== ENCOUNTER → 2024-09-25 | Outpatient (CLI) | payer MEDICARE, OTHER | LOC: WWCWWP 11:32 | PROVIDERS: ATTEND Surgery | DX: Z53.9 Procedure and treatment not carried out, unspecified reason (principal) ==

== ENCOUNTER → 2024-10-16 | Outpatient (CLI) | payer MEDICARE, OTHER ==
--- NOTE | 2024-10-16 12:16 | NM ---
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 COMPARISON: CT abdomen and pelvis 09/07/2022. PROCEDURE: A 3 phase bone scan of the whole body was obtained following the IV administration of 25.0 mCi of [id number]. There is focus on the lumbar spine. FINDINGS: No focal uptake identified on blood flow or blood pool phases. Mild radiotracer uptake with in the L4-L5 lumbar region at site of anterior fusion on delayed imaging. IMPRESSION: Mild radiotracer uptake only on delayed imaging at the L4-L5 lumbar region at site of anterior fusion . Findings suggest degenerative changes. No recent imaging of the lumbar spine is available for wesleyerick hanley. [facility], , 10/16/2024 12:14 PM
== END | disposition home or self-care (01) ==
LOC: RADNMMAIN 07:03
PROVIDERS: ATTEND Family Medicine
DX: M46.26 Osteomyelitis of vertebra, lumbar region (principal); R90.89 Other abnormal findings on diagnostic imaging of central nervous system
CPT/HCPCS: 78315; A9503

== ENCOUNTER → 2024-11-26 | Outpatient (CLI) | payer MEDICARE, OTHER ==
[2024-11-26 13:33] VITALS: BP 168/70; PULSE 71; RESP 16; TEMP 97.8
--- NOTE | 2024-11-26 13:55 | P.PN ---
Subjective Progress Note Date: 11/26/24 Principal diagnosis: left breast stage IA IDC 2022; [id number](sn)cM0ER/Pr+Her2-G2 Subjective Progress Note Date: 11-26-24 Principal diagnosis: left breast stage IA IDC 2022; [id number](sn)cM0ER/Pr+Her2-G2 History of Present Illness Chief Complaint: Invasive ductal carcinoma left breast/ surveillance Radha is a 69-year-old white female seen in consultation for Dr. Diamond regarding a left breast invasive ductal carcinoma. She underwent a bilateral mammogram on 11281019. This revealed an area of concern in the left breast and an ultrasound was recommended. The ultrasound was performed on [id number]. This revealed a 19 x 14 mm lesion 2 cm from the nipple. An ultrasound core biopsy was performed on which revealed an invasive ductal carcinoma ER/ID pos itive HER-2/james negative. Was able to feel a mass in her left breast for approximately 3 months. She was not complaining of any nipple discharge or skin changes. The left nipple is sore. She has never had any surgery on her breasts before. She was scheduled for surgery on her rotator cuff and it was felt that it was safe for her to proceed with that. Underwent a left breast lumpectomy and sentinel node biopsy on 10-29-2023; 2 cm lesion, all margins (-), 9 nodes (-) post op some necrosis at methleyne blue injection site note radiation oncology 09-17-24 reviewed completed treatment on 01-16-24; instructed on skin care, self massage, arm stretching, and bra use note medical oncology 05-05-24: start AI , bone density, effexor on Aromasin, on vehoza for night sweats helping Persistent discomfort in the left breast in the inferior aspect; she is not complaining of any new lumps masses or nodules of concern in either breast Bilateral mammogram 09-14-2024 benign BI-RADS 2 Caffeine: pop occasional nicotine: 4/day, for about 20 years chocolate: occasional BCP: in the remote past for about 5 years Family History: sister: colon cancer mother: brain cancer Hormonal history: Menarche: 16 , breast fed: no, age at first : 20 menopause: 52 takes premarin since 52 Medical history: Back pain Surgical history: Left rotator cuff surgery Hysterectomy too ovaries; done for endometriosis Social History: nicotine: 4/day for 20 years alcohol: none drugs: none - Constitutional Constitutional: Reports sweats - EENT Eyes: bilateral blurred vision, denies pain Ears: bilateral: decreased hearing, deny: tinnitus Ears, nose, mouth and throat: Reports headache, Denies sore throat - Breasts Breasts: bilateral: as per HPI - Cardiovascular Cardiovascular: Denies chest pain, Denies shortness of breath - Respiratory Respiratory: Reports as per HPI - Gastrointestinal Comment: colitis, and diverticulitis Gastrointestinal: Denies abdominal pain, Denies diarrhea, Denies nausea, Denies vomiting - Genitourinary (Female) Genitourinary: Denies dysuria, Denies hematuria - Menstruation Menstruation: Reports post hysterectomy - Musculoskeletal Comment: arthritis Musculoskeletal: Reports myalgias - Integumentary Integumentary: Denies pruritus, Denies rash - Neurological Neurological: Denies numbness, Denies weakness - Psychiatric Psychiatric: Reports anxiety, Reports depression - Endocrine Endocrine: Reports fatigue, Denies weight change - Hematologic/Lymphatic Comment: none - Allergic/Immunologic Allergic/Immunologic: Reports seasonal allergies Past Medical History Past Medical History: Asthma, Hyperlipidemia, Hypertension, Osteoarthritis (OA), Thyroid Disorder Additional Past Medical History / Comment(s): takes depakote for migraine headaches, hemorrhoids, nerve pain, diverticulitis, colitis, frequent diarrhea History of Any Multi-Drug Resistant Organisms: None Reported Past Surgical History: Back Surgery, Cholecystectomy, Hysterectomy, Orthopedic Surgery Additional Past Surgical History / Comment(s): back surg. x2, lumbar fusion, left shoulder rotator cuff Past Anesthesia/Blood Transfusion Reactions: Postoperative Nausea & Vomiting (PONV) Past Psychological History: Anxiety, Depression Smoking Status: Current every day smoker Past Alcohol Use History: None Reported Additional Past Alcohol Use History / Comment(s): 6 cigs/day, not heavy, maybe for 20 yrs. Past Drug Use History: None Reported - Past Family History Mother Family Medical History: Cancer Additional Family Medical History / Comment(s): brain Sister(s) Family Medical History: Cancer Additional Family Medical History / Comment(s): PT WAS UNSURE OF ORIGIN Medications and Allergies Home Medications Medication Instructions Recorded Confirmed Type Estrogens, Conjugated [Premarin] 0.3 mg PO HS 09/03/16 08/28/23 History Morphine Sulfate ER [Ms Contin] 30 mg PO TID 09/03/16 08/28/23 History Atorvastatin [Lipitor] 20 mg PO HS 12/19/20 08/28/23 History Levothyroxine Sodium [Synthroid] 100 mcg PO DAILY 12/19/20 08/28/23 History Divalproex Sodium [Depakote] 125 mg PO DAILY 05/13/21 08/28/23 History busPIRone HCl [Buspar] 10 mg PO BID 10/28/21 08/28/23 History Lisinopril-Hctz 20-12.5 mg 1 tab PO HS 10/13/22 08/28/23 History [Zestoretic 20-12.5] Allergies Allergy/AdvReac Type Severity Reaction Status Date / Time Iodinated Contrast Media Allergy Rash/Hives/ Verified 08/28/23 12:32 [Iodinated Contrast Media - Swelling Oral and] Objective - Vital Signs Vital signs: Vital Signs Temp 97.8 F 11/26/24 13:31 Pulse 71 11/26/24 13:31 Resp 16 11/26/24 13:31 BP 168/70 11/26/24 13:31 Pulse Ox 97 11/26/24 13:31 FiO2 Intake & Output 11/25/24 11/26/24 11/26/24 18:59 06:59 18:59 Weight 55.338 kg - Constitutional General appearance: Present: cooperative - EENT Eyes: Present: EOMI ENT: Present: hearing grossly normal - Neck Neck: Present: normal ROM - Respiratory Respiratory: bilateral: CTA - Cardiovascular Rhythm: regular Heart sounds: normal: S1, S2 - Integumentary Integumentary: Present: normal turgor - Musculoskeletal Musculoskeletal: Present: gait normal - Psychiatric Psychiatric: Present: A&O x's 3, appropriate affect, intact judgment & insight - Additional findings Additional findings: Breast Exam: BRA; 38D INspection: Asymmetry of the breast related to left breast central lumpectomy, left breast postradiation and surgical changes Palpation: Right breast: Multi positional exam fibrocystic changes, no dominant masses or nodules of concern, grade 3 ptosis Right axilla: No adenopathy of concern Left breast: Multi positional exam fibrocystic changes, postsurgical and radiation changes, grade 2 ptosis Left axilla: No adenopathy of concern Right breast is larger than left breast secondary to treatment for breast cancer Assessment and Plan Assessment: mpression: Patient's status post left breast lumpectomy/radiation therapy for stage Ia invasive ductal carcinoma Patient will be due for bilateral mammogram in August 2025; bilateral mammogram 09-14-24 BIRAD 2 Patient on aromisin Patient completed radiation therapy no evidence of recurrence body aches will follow with primary care Plan: bilateral mammogram in August 2025 with appointment consider appointment with rhematology follow up here in 6 months CC: Dr. Diamond
== END ==
LOC: WWCWWP 12:21
PROVIDERS: ATTEND Surgery
DX: C50.912 Malignant neoplasm of unspecified site of left female breast (principal); R92.2 Inconclusive mammogram; Z92.3 Personal history of irradiation; Z90.12 Acquired absence of left breast and nipple; Z79.811 Long term (current) use of aromatase inhibitors; F17.210 Nicotine dependence, cigarettes, uncomplicated; Z91.041 Radiographic dye allergy status

== ENCOUNTER → 2025-02-24 | Outpatient (CLI) | payer MEDICARE, OTHER ==
--- NOTE | 2025-02-24 13:00 | CT ---
EXAMINATION TYPE: CT chest wo con DATE OF EXAM: 02/24/2025 12:45 PM COMPARISON: None CLINICAL INDICATION: Female, 69 years old with history of J45.998 OTHER ASTHMA; PHH, copd TECHNIQUE: Multiple axial images were obtained through the chest. Sagittal and coronal reformats were created for review. MIP was performed on a separate workstation. Contrast used: mL of (None if empty) Oral contrast used: (None if empty) CT DLP: 195.6 mGycm, Automated exposure control for dose reduction was used. FINDINGS: LUNGS/ PLEURA: Posttreatment changes left anterior lung from with interstitial scarring. No focal con solidation, pneumothorax or pleural effusion. AIRWAY: Patent and unremarkable. HEART: Size within normal limits. Mild coronary artery calcifications present. MEDIASTINUM: No gross evidence of adenopathy. VASCULATURE: No aortic aneurysm. MUSCULOSKELETAL: Mild disc degeneration changes are present throughout the thoracolumbar spine second bella to osteophyte formation and facet joint arthropathy. SOFT TISSUES/LYMPH NODES: Surgical changes left breast with clips present. LOWER NECK: No significant findings. UPPER ABDOMEN: Gallbladder surgically absent. Few scattered colonic diverticula. IMPRESSION: 1. No evidence for acute process. 2. Posttreatment changes to the left breast with surgical clips present. Posttreatment changes of th e left lung. No lymphadenopathy or suspicious masses. 3. Colonic diverticulosis. [facility], , 02/24/2025 12:58 PM
== END | disposition home or self-care (01) ==
LOC: RADCTMAIN 12:17
PROVIDERS: ATTEND Family Medicine
DX: J44.9 Chronic obstructive pulmonary disease, unspecified (principal); K57.30 Diverticulosis of large intestine without perforation or abscess without bleeding; Z98.890 Other specified postprocedural states
CPT/HCPCS: 71250

== ENCOUNTER → 2025-04-14 | Outpatient (CLI) | payer MEDICARE, OTHER ==
--- NOTE | 2025-04-14 09:27 | XR ---
EXAMINATION TYPE: XR knee complete LT DATE OF EXAM: 04/14/2025 9:23 AM INDICATION: Patient age:Female; 69 years old; Reason for study: OA; PHH. pain COMPARISON: Left knee radiograph 02/28/2012 TECHNIQUE: The Left knee(s) was examined in Frontal, lateral and oblique projections. FINDINGS: No evidence of any acute osseous pathology, soft tissue swelling, or joint effusion is no rajan. No significant joint space narrowing or osteophytosis. IMPRESSION: No acute osseous pathology. [facility], , 04/14/2025 9:25 AM
== END | disposition home or self-care (01) ==
LOC: RADXRMAIN 08:58
PROVIDERS: ATTEND Family Medicine
DX: M17.12 Unilateral primary osteoarthritis, left knee (principal)